=== PATIENT | male | born 1955 | race Caucasian/White ===

== ENCOUNTER 2019-10-22 23:30 | Inpatient (IN) | payer OTHER, MEDICARE, SELFPAY ==
[2019-10-26] VITALS (13 sets, daily range): BP systolic 131–185; BP diastolic 91–119; PULSE 103–135; RESP 15–24; TEMP 36.9–37.2; O2SAT 93–96
[2019-10-26] MEDS: metoprolol tartrate 1 mg/1 mL SDV 5 mL 5 MG IV ×5 (02:22→21:37)
[2019-10-26] MEDS: piperacillin-tazobactam 3.375 GM in sodium chloride 0.9% (plus) 50 ML IV ×4 (04:00→20:35)
[2019-10-26] MEDS: ipratropium 0.5 mg/2.5 mL Neb INHALATION ×2 (04:29→10:49)
[2019-10-26] MEDS: labetalol 5 mg/mL SDV 20mL 10 MG IVP (05:09)
[2019-10-26 05:15] LABS: Add RBC Morph No
[2019-10-26 05:20] LABS: Eosinophils # 0.1 10^3/uL (0.0-0.8); Eosinophils % 1.6 %; Hemoglobin 9.8 g/dL (11.7-16.6); Lymphocytes # 0.5 10^3/uL (0.8-4.8); Lymphocytes % 6.5 %; Mean Corpuscular HGB Conc 32.7 g/dL (30.0-36.0); Mean Corpuscular Volume 91.7 fL (80-94); Mean Platelet Volume 9.8 fL (7.4-10.4); Monocytes # 0.4 10^3/uL (0.2-0.9); Monocytes % 5.4 %; Neutrophils # 7.1 10^3/uL (1.8-7.7); Nucleated Red Blood Cells % 0 %; Platelet Count 132 10^3/cmm (130-400); Red Blood Count 3.27 10^6/uL (4.1-5.3); Red Cell Distribution Width 16.2 % (12.1-15.1); White Blood Count 8.2 10^3/uL (4.0-10.0)
[2019-10-26] MEDS: fentaNYL 50 mcg/mL INJ 2mL 25 MCG IVP ×3 (05:21→18:08)
[2019-10-26 05:40] LABS: Anion Gap 14.3 (5-19); Blood Urea Nitrogen 27 mg/dL (8-23); Calcium 9.6 mg/Dl (8.8-10.2); Carbon Dioxide 22 mmol/L (22-29); Chloride 108 mmol/L (98-107); Glucose 138 mg/dL (74-106); Potassium 3.3 mmol/L (3.5-5.1); Sodium 141 mmol/L (136-145)
[2019-10-26] MEDS: albumin 12.5 GM/50 ML VIAL 2 GM IV (06:01)
--- NOTE | 2019-10-26 08:30 | P.PN_ITS ---
Subjective Subjective: Interval history: Patient overall feels well, no acute events overnight Yet patient did have persistent high blood pressure associated with tachycardia, was given as needed labetalol and metoprolol Vitals/I&O/Wt Last Vital Signs Pulse 110 H 10/26/19 04:34 Resp 15 10/26/19 04:30 Pulse Ox 95 10/26/19 04:30 10/25/19 10/26/19 10/26/19 22:59 06:59 14:59 Intake Total 1186 / 1186 Output Total 600 / 600 Balance 1186 / 1186 -600 / -600 Weight last 48 hrs Weight 109.343 kg Physical Exam Const: COMMON NORMALS: no apparent distress, oriented x3 and alert Resp: COMMON NORMALS: clear to auscultation bilaterally AUSCULTATION: clear to auscultation bilaterally, no rales and no rhonchi Cardio: COMMON NORMALS: S1 normal heart sound and S2 normal heart sound HEART SOUNDS: S1 normal and S2 normal GI: COMMON NORMALS: soft to palpation; negative for non-tender PALPATION: Yes soft, No guarding, No rigid and No hernia PERCUSSION: other (Noticed some discharge from the upper part of the incision, skin charis were removed fascia was intact and packing was done by me bedside) Neuro: COMMON NORMALS: oriented x3 SENSORIUM/ORIENTATION: Yes alert Data Labs: Other Labs: All Labs last 24 hrs except CBC/BMP 10/25/19 10/25/19 10/25/19 01:25 01:25 01:25 RBC 3.14 L MCV 92.4 MCH 30.3 MCHC 32.8 RDW 16.3 H MPV 9.0 Neut % (Auto) 86.1 Lymph % (Auto) 7.9 [place] % (Auto) 4.7 Eos % (Auto) 0.8 Baso % (Auto) 0.0 Neut # (Auto) 7.5 Lymph # (Auto) 0.7 L [place] # (Auto) 0.4 Eos # (Auto) 0.1 Baso # (Auto) 0.0 Nucleated RBC % (a uto) 0 Nucleated RBCs # 0.0 GFR Calculation 40.5 L Random Glucose 108 Calcium 9.1 Total Bilirubin 0.7 AST 21 ALT 24 Alkaline Phosphata se 42 Total Protein 5.2 L Albumin 3.7 Globulin 1.5 Random Vancomycin 17.5 L 1210/26/19 10/26/19 16:50 04:42 04:42 RBC 3.27 L MCV 91.7 MCH 30.0 MCHC 32.7 RDW 16.2 H MPV 9.8 Neut % (Auto) 86.0 Lymph % (Auto) 6.5 [place] % (Auto) 5.4 Eos % (Auto) 1.6 Baso % (Auto) 0.0 Neut # (Auto) 7.1 Lymph # (Auto) 0.5 L [place] # (Auto) 0.4 Eos # (Auto) 0.1 Baso # (Auto) 0.0 Nucleated RBC % (a uto) 0 Nucleated RBCs # 0.0 GFR Calculation 55.2 L 67.0 L Random Glucose 110 Calcium 9.6 9.6 Total Bilirubin 0.6 AST 21 ALT 25 Alkaline Phosphata se 49 Total Protein 6.3 L D Albumin 4.3 Globulin 2.0 Random Vancomycin A&P Assessment and plan (1) Perforated gastric ulcer: This is a 64 years old gentleman status post repair of perforated gastric ulcer postoperative day 4 Patient developed superficial surgical site infection Plan: PLAN OF CARE: CVS: Continue continuous cardiac monitoring, tachycardia and hypertension requires medical management will defer to hospitalist service Anemia stable H&H PULMONARY: Continue weaning from oxygen Continue Aggressive pulmonary toilet Continue Incentive spirometer every hour Lasix IV when necessary GI: At this point will plan to perform an upper GI study tomorrow at the radiology suite if that is clear we will start the patient slowly on clear liquid diet NUTRITION: Continue TPN RENAL: Continue monitoring kidney functions Strict I's and O's Continue electrolyte protocols for replacement including calcium potassium and magnesium INFECTIOUS DISEASE: We will coordinate with hospital service with regard antimicrobial NEUROLOGY: No evidence of neurological deficit GCS 15 out of 15 MOBILITY: physical therapy SKIN AND WOUND: Twice daily wet to dry dressing change for abdominal incision Pain control; parenteral analgesia We will continue coordinating with hospitalist service Assurance and education Continue encouragement Medical necessity care is expected to cross 2 midnights Status: Acute Code(s): K25.5 - Chronic or unspecified gastric ulcer with perforation (2) Surgical site infection: Swabs for aerobes and anaerobes from the wound Twice daily wet-to-dry packing for dressing change followed by ABD Status: Acute Code(s): T81.49XA - Infection following a procedure, other surgical site, initial encounter Attestations Medical Necessity Statement*: Medical necessity care is expected to cross 2 midnights Critical Care Time: Critical care time: less than 30 mins Coding Level of Care Code Acute 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
--- NOTE | 2019-10-26 09:49 | PC.NURSE ---
unable to enter multiple other titrated drugs the other medication that were infusing were ns at 30ml/hr and tpn at 30ml/hr. intake has been document on intake and output for other intake
[2019-10-26] MEDS: hyDRALAzine 20 mg/mL INJ 1 mL 5 MG IVP ×2 (09:59→15:50)
[2019-10-26] MEDS: potassium chloride premix 40 MEQ/100 ML PREMIX 25 MEQ IV (10:00)
[2019-10-26] MEDS: budesonide 0.5 mg/2 mL Neb INHALATION ×2 (10:53→20:29)
--- NOTE | 2019-10-26 11:03 | PC.OT ---
patient on hold this date due to awaiting IVC filter due to bilateral DVT's.
--- NOTE | 2019-10-26 11:21 | P.PN_ITS ---
Subjective Subjective: Interval history: Patient's pain is better controlled today however somewhat worsened with dressing change this morning. However he does report with switch from morphine to Dilaudid he seems to be in better control of the pain. His heart rate overnight was up to 180s and his blood pressure systolic was also in the 180s for which she received one-time dose of labetalol. He did have 1 run of what appears to be A. fib on telemetry yesterday afternoon but has since remained in sinus rhythm. Today we will put him on standing metoprolol 5 mg every 6 hours and also start hydralazine for better blood pressure control until he is able to resume a p.o. intake. His abdominal wound was opened this morning at bedside there was noted to be some slimy discharge but no nacho pus. Renal function is improving this morning. Creatinine is now at 1. He diuresed well with Lasix yesterday. Lower extremity Dopplers were also performed which showed that there is no DVT anymore. A VQ scan was negative for PE. He underwent an abdominal flatplate yesterday to look for gastric distention and this evidently showed that patient already has an IVC filter in place. On asking patient specifically he says he was under the impression that this had been removed previously. Hemoglobin is stable this morning Medications: Reviewed: Yes Vitals/I&O/Wt Last Vital Signs Pulse 113 H 10/26/19 10:58 Resp 20 H 10/26/19 10:56 Pulse Ox 95 10/26/19 10:56 10/25/19 10/26/19 10/26/19 22:59 06:59 14:59 Intake Total 1336 / 1336 250 / 250 Output Total 600 / 600 Balance 1336 / 1336 -350 / -350 Weight last 48 hrs Weight 109.343 kg Physical Exam Const: COMMON NORMALS: no apparent distress and oriented x3 Resp: COMMON NORMALS: normal respiratory effort, no retractions and no use of accessory muscles EFFORT & INSPECTION: Yes able to speak in complete sentences GI: OTHER: distended, surgical dressing in place over abdomen. NOt opened by me for exam today as just re dressed by Dr. Mckinney Neuro: COMMON NORMALS: oriented x3, CN's II-XII intact bilaterally, moves all extremities and no focal motor deficits Data Labs: Other Labs: All Labs last 24 hrs except CBC/BMP 10/25/19 10/25/19 10/25/19 01:25 01:25 01:25 RBC 3.14 L MCV 92.4 MCH 30.3 MCHC 32.8 RDW 16.3 H MPV 9.0 Neut % (Auto) 86.1 Lymph % (Auto) 7.9 [place] % (Auto) 4.7 Eos % (Auto) 0.8 Baso % (Auto) 0.0 Neut # (Auto) 7.5 Lymph # (Auto) 0.7 L [place] # (Auto) 0.4 Eos # (Auto) 0.1 Baso # (Auto) 0.0 Nucleated RBC % (a uto) 0 Nucleated RBCs # 0.0 GFR Calculation 40.5 L Random Glucose 108 Calcium 9.1 Total Bilirubin 0.7 AST 21 ALT 24 Alkaline Phosphata se 42 Total Protein 5.2 L Albumin 3.7 Globulin 1.5 Random Vancomycin 17.5 L 10/25/19 10/26/19 10/26/19 16:50 04:42 04:42 RBC 3.27 L MCV 91.7 MCH 30.0 MCHC 32.7 RDW 16.2 H MPV 9.8 Neut % (Auto) 86.0 Lymph % (Auto) 6.5 [place] % (Auto) 5.4 Eos % (Auto) 1.6 Baso % (Auto) 0.0 Neut # (Auto) 7.1 Lymph # (Auto) 0.5 L [place] # (Auto) 0.4 Eos # (Auto) 0.1 Baso # (Auto) 0.0 Nucleated RBC % (a uto) 0 Nucleated RBCs # 0.0 GFR Calculation 55.2 L 67.0 L Random Glucose 110 Calcium 9.6 9.6 Total Bilirubin 0.6 AST 21 ALT 25 Alkaline Phosphata se 49 Total Protein 6.3 L D Albumin 4.3 Globulin 2.0 Random Vancomycin Micro: Micro: 10/22 and 10/23: Blood cx : NGTD A&P Assessment and plan (1) Perforated gastric ulcer: For perforated gastric ulcer patient is currently postop day 4. He is to have an upper GI series tomorrow to ensure there are no leaks. If there are no leaks detected then we will be able to resume his diet. Until the cane weigher with PPN. Flatplate of the abdomen was performed yesterday which did not show any gross gastric distention therefore holding off on NG tube placement. On examining the wound today there appears to be some concern for developing surgical site infection. We will continue Zosyn for now. If cross pus develops we will take wound swabs and send it for culture. Patient continues to be tachycardic likely is a combination of pain and abdominal distention discomfort. We will make the metoprolol 5 mg IV every 6 hours. For his hypertension we will also start hydralazine. MIKEY is currently improving. We will hold off on Lasix today. He diuresed well yesterday and lungs are sounding much clear. Surprisingly DVT was not detected on lower extremity Dopplers yesterday. A VQ scan for PE was also negative. Patient already has an IVC filter in place yesterday as detected on x-rays. Nothing further to be done from this perspective. We will continue DVT prophylaxis with heparin. Continue Dilaudid for pain control Incentive spirometry Wound care per surgical team Bronchitis continue [id number] nebulizations with DuoNeb's and budesonide. Status: Acute Code(s): K25.5 - Chronic or unspecified gastric ulcer with perforation (2) Sinus tachycardia: Status: Acute Code(s): R00.0 - Tachycardia, unspecified (3) Deep vein thrombophlebitis of leg: Status: Acute Code(s): I80.209 - Phlebitis and thrombophlebitis of unspecified deep vessels of unspecified lower extremity (4) Hypertension: Status: Acute Code(s): I10 - Essential (primary) hypertension (5) Hypokalemia: Status: Acute Code(s): E87.6 - Hypokalemia (6) Anemia: Status: Acute Code(s): D64.9 - Anemia, unspecified Attestations Medical Necessity Statement*: Admitted for management of postop care from a perforated gastric ulcer. Coding Level of Care Code Acute Director Of Quality for [facility] Diagnoses Perforated gastric ulcer K25.5 Sinus tachycardia R00.0 Deep vein thrombophlebitis of leg I80.209 Hypertension I10 Hypokalemia E87.6 Anemia D64.9
--- NOTE | 2019-10-26 14:27 | PC.CHAP ---
Pastoral Care Encounter/Spiritual Assessment Type of Contact [] Declined city engineer visit [] Patient/Family/Request visit [] Outpatient visit [] Follow-up visit [] Physician referral [] Code/Alert [x] Routine visit [] Staff referral [] Actively dying [] Patient sleeping [] Family support [] [] Out of room [] Palliative care [] [] Receiving care in room [] Pre-surgical visit [] Trauma [] Long length of stay [x] ICU visit [] Other: Relational/Emotional Strength [] Patient feels connected with others/family/visitors/staff [x] Distress [] Loneliness/isolation [] Abandonment Spirituality of Patient [x] Person of Wendy [] Attends Christianity of their Wendy [x] Believes in Prayer [] Reads Bible or Spiritism materials [] There are Spiritual issues to be addressed Radio Maintainer Interventions [x] Prayer [x] Active listening [] Non-anxious presence [x] Spiritual/emotional support [] Crisis/trauma care [] Spiritual counseling [] Bereavement support [] Provided bereavement packet [] Provided Bible/devotional materials [] Provided toy/stuffed animal, coloring book to patient or family member [] Completed spiritual assessment [] Provided Communion [] Anointing/[place] [] Salvation [] Other: Impact on Illness or Injury [] Angry [] Fearful [x] Anxious [] Often cries [] Exhaustion [] Unable to work [x] Unable to attend jewish [] Unable to walk/stand [] Unable to read [x] Unable to drive [x] Unable to eat/drink [] Unable to sleep [] Unable to be with family [] Other: Summary Setting up responseive active watahing TV Time spent with patient 110 mins
[2019-10-26] MEDS: heparin 5,000 unit/mL INJ 1 mL 5000 UNIT SUBCUT (15:28)
[2019-10-26] MEDS: albumin 12.5 GM/50 ML VIAL IV ×2 (15:29→21:56)
[2019-10-26] MEDS: fixodent 39 gm Tube 1 APPLIC DENTAL (17:30)
[2019-10-26] MEDS: HYDROmorphone 1 mg/mL INJ 1 mL 1.672 MG IVP (20:36)
[2019-10-26] MEDS: hyDRALAzine 20 mg/mL INJ 1 mL 10 MG IVP (22:50)
[2019-10-27] VITALS (26 sets, daily range): BP systolic 130–169; BP diastolic 76–114; PULSE 64–135; RESP 14–29; TEMP 36.7–37.2; O2SAT 92–97; BMI 38.2
[2019-10-27] MEDS: ipratropium 0.5 mg/2.5 mL Neb INHALATION ×4 (00:38→14:53)
[2019-10-27] MEDS: heparin 5,000 unit/mL INJ 1 mL 5000 UNIT SUBCUT ×2 (01:24→12:48)
[2019-10-27] MEDS: hyDRALAzine 20 mg/mL INJ 1 mL 10 MG IVP ×6 (01:50→22:18)
[2019-10-27] MEDS: metoprolol tartrate 1 mg/1 mL SDV 5 mL 5 MG IV ×5 (02:59→20:43)
[2019-10-27] MEDS: piperacillin-tazobactam 3.375 GM in sodium chloride 0.9% (plus) 50 ML IV ×3 (03:02→20:46)
[2019-10-27 04:12] LABS: Hematocrit 30.5 % (42.0-52.0); Hemoglobin 9.5 g/dL (11.7-16.6); Mean Corpuscular HGB Conc 31.1 g/dL (30.0-36.0); Mean Corpuscular Hemoglobin 30.5 pg (28.0-34.0); Mean Corpuscular Volume 98.1 fL (80-94); Mean Platelet Volume 9.8 fL (7.4-10.4); Platelet Count 131 10^3/cmm (130-400); Red Blood Count 3.11 10^6/uL (4.1-5.3); Red Cell Distribution Width 16.1 % (12.1-15.1); White Blood Count 6.3 10^3/uL (4.0-10.0)
[2019-10-27 05:12] LABS: Alanine Aminotransferase 17 U/L (0-41); Albumin Level 3.7 g/dL (3.5-5.2); Alkaline Phosphatase 40 IU/L (40-130); Anion Gap 13.4 (5-19); Aspartate Amino Transferase 16 U/L (0-40); Blood Urea Nitrogen 20 mg/dL (8-23); Carbon Dioxide 21 mmol/L (22-29); Chloride 104 mmol/L (98-107); Globulin 1.7 g/dL (1.3-4.6); Glomerular Filtration Rate 112.8 mL/min (90-130); Glucose 145 mg/dL (74-106); Potassium 3.4 mmol/L (3.5-5.1); Sodium 135 mmol/L (136-145); Total Bilirubin 0.5 mg/dL (0.15-1.2); Total Protein 5.4 g/dL (6.6-8.7)
[2019-10-27 05:23] LABS: Total Cells Counted 100 (0-100)
[2019-10-27 05:26] LABS: Absolute Eosinophils 0.1 10^3/cmm (0.0-0.7); Absolute Segmented Neutrophil 4.9 10/cmm (1.6-7.1); Band Neutrophils Absolute 0.4 10^3/cmm (0.0-1.2); Eosinophils 2 %; Lymphocytes 12 %; Monocytes Absolute 0.1 10^3/cmm (0.1-0.6); Segmented Neutrophils 79 %
[2019-10-27 05:27] LABS: Platelet Estimate Decreased (Normal)
[2019-10-27] MEDS: albumin 12.5 GM/50 ML VIAL IV ×2 (06:02→14:48)
[2019-10-27] MEDS: HYDROmorphone 1 mg/mL INJ 1 mL 1.672 MG IVP ×3 (06:39→20:43)
--- NOTE | 2019-10-27 07:10 | P.PN_ITS ---
Subjective Subjective: Interval history: Patient overall doing well No acute events overnight BP is better controlled Soaking of the dressing requiring frequent dressing chnages emilieley due to third spacing Vitals/I&O/Wt Last Vital Signs Temp 98.3 F 10/27/19 06:00 Pulse 127 H 10/27/19 06:00 Resp 27 H 10/27/19 06:39 BP 157/93 10/27/19 06:00 Pulse Ox 95 10/27/19 06:39 10/26/19 10/27/19 10/27/19 22:59 06:59 14:59 Intake Total 1148 / 1498 246 / 1744 Output Total 500 / 1100 490 / 1590 Balance 648 / 398 -244 / 154 Weight last 48 hrs Weight 230 lb Weight 241 lb 0.96 oz Physical Exam Const: COMMON NORMALS: no apparent distress EXAM LIMITATIONS: no altered mental status Eye: COMMON NORMALS: no scleral icterus Resp: COMMON NORMALS: clear to auscultation bilaterally AUSCULTATION: clear to auscultation bilaterally GI: COMMON NORMALS: soft to palpation AUSCULTATION: Yes other (WOUND LOOKS BETTER TODAY,RESIDUAL NECROTIC TISSUES ) PALPATION: Yes soft, No tender (EXCEPT AT TH EMID LINE INCISION SITE ), No guarding, No rigid and No rebound tenderness present Data Other Data: Attestation for Other Data: I personally reviewed and interpreted the following: (The upper GI study) A&P Assessment and plan (1) Perforated gastric ulcer: This is a 64 years old gentleman status post repair of perforated gastric ulcer postoperative day 4 Patient developed superficial surgical site infection Plan: PLAN OF CARE: CVS: Continue continuous cardiac monitoring, tachycardia and hypertension requires medical management will defer to hospitalist service,better controlled at present Anemia stable H&H PULMONARY: Continue weaning from oxygen Continue Aggressive pulmonary toilet Continue Incentive spirometer every hour Lasix IV when necessary GI: At this point will plan to perform an upper GI study today at the radiology suite if that is clear we will start the patient slowly on clear liquid diet with aspiration precautions NUTRITION: Continue TPN RENAL: Continue monitoring kidney functions Strict I's and O's Continue electrolyte protocols for replacement including calcium potassium and magnesium Zee catheter was removed yesterday, urine output is marginal, will make sure that the patient's bladder is being scanned frequently for potential residual. INFECTIOUS DISEASE: We will coordinate with hospital service with regard antimicrobial therapy NEUROLOGY: No evidence of neurological deficit GCS 15 out of 15 MOBILITY:continue physical therapy SKIN AND WOUND: Twice daily dry to dry dressing change for abdominal incision or as needed,will plan to apply wound vac at some point when needed. Pain control; parenteral analgesia We will continue coordinating with hospitalist service Assurance and education Continue encouragement Medical necessity care is expected to cross 2 midnights Status: Acute Code(s): K25.5 - Chronic or unspecified gastric ulcer with perforation (2) Surgical site infection: Swabs for aerobes and anaerobes from the wound sent yesterday will follow on it Twice daily wet-to-dry packing for dressing change followed by ABD or as needed Status: Acute Code(s): T81.49XA - Infection following a procedure, other surgical site, initial encounter Attestations Medical Necessity Statement*: Medical necessity care is expected to cross 2 midnights Time Spent in Patient Care: 16 - 35 minutes Coding Level of Care Code Acute Professional 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
[2019-10-27] MEDS: budesonide 0.5 mg/2 mL Neb INHALATION ×2 (07:35→20:37)
--- NOTE | 2019-10-27 08:00 | FL_ITS ---
WS: [id number] UPPER GI TECHNICAL: Single contrast Gastrografin FLUOROSCOPY TIME: 2.5 minutes CLINICAL INFORMATION: Is postoperative day 5 status post repair of perforated gastric ulcer to rule o ut leak COMPARISON: None. FINDINGS: Exam was performed in the semiupright position. No evidence of gastric leak. Contrast is seen to fill the stomach and extends to the proximal duodenum. FL/FL upper GI gastrografin [id number] IMPRESSION: No evidence of gastric leak post gastric ulcer repair
--- NOTE | 2019-10-27 08:27 | PM.PN ---
Subjective Subjective: Interval history: BP between 145-160 systolic overnight. Continues to be tachycardic, sinus rhythm between 98-127. PAin+. Frequent soaking of dressing noted on surgical exam. Hb stable at 9.5. No leukocytosis. K at 3.4. MIKEY resolved with cr now at 0.7. LFT WNL. H. pylori IgG AB: negative. Blood cx remains negative to date. Planned for UGI study this morning. Passing flatus. States he feels improved. Urine output 975ml, drain output 15ml Medications: Reviewed: Yes Vitals/I&O/Wt Last Vital Signs Temp 98.3 F 10/27/19 06:00 Pulse 119 H 10/27/19 07:38 Resp 18 10/27/19 08:00 BP 157/93 10/27/19 06:00 Pulse Ox 95 10/27/19 08:00 10/26/19 10/27/19 10/27/19 22:59 06:59 14:59 Intake Total 1148 / 1498 246 / 1744 Output Total 500 / 1100 490 / 1590 Balance 648 / 398 -244 / 154 Weight last 48 hrs Weight 104.326 kg Weight 109.343 kg Physical Exam Const: COMMON NORMALS: no apparent distress, oriented x3 and alert Resp: COMMON NORMALS: normal respiratory effort, no retractions and no use of accessory muscles OTHER: mild B/L rales, improved on exam Cardio: COMMON NORMALS: regular rate (tachycardia), regular rhythm, S1 normal heart sound, S2 normal heart sound, no gallops, no murmurs, no rub and peripheral pulses 2+ throughout RATE: regular rate (tachycardia) RHYTHM: regular rhythm HEART SOUNDS: S1 normal and S2 normal PERIPHERAL PULSES: pulses 2+ throughout GI: OTHER: Surgical dressing over abdoman with surgical wound underneath, not opened for exam by me as just dressed this morning. No gross pus like discharge on dressing. Abdominal wall edema+. Neuro: COMMON NORMALS: oriented x3 SENSORIUM/ORIENTATION: Yes alert Psych: COMMON NORMALS: mental status grossly normal and affect normal A&P Assessment and plan (1) Perforated gastric ulcer: For perforated gastric ulcer patient is currently postop day 5. He is to have an upper GI series today to ensure there are no leaks. If there are no leaks detected then we will be able to resume his diet. Until then nutrition is with PPN. On examining the wound today there appears to be some concern for developing surgical site infection. Concern for early surgical site infection. Continue Zosyn. Given no leukocytosis or fever, will hold off on adding vancomycin until wound swab cx results. Patient continues to be tachycardic likely is a combination of pain and abdominal distention discomfort. We will increase the metoprolol 5 mg IV every 4 hours. hypertension better controlled with addition of hydrazlazine. MIKEY is resolved. We will hold off on Lasix today. Surprisingly DVT was not detected on repeat lower extremity Dopplers. A VQ scan for PE was also negative. Patient already has an IVC filter in place yesterday as detected on x-rays. Nothing further to be done from this perspective. We will continue DVT prophylaxis with heparin. Continue Dilaudid for pain control Incentive spirometry Wound care per surgical team Bronchitis continue [id number]-[id number] nebulizations with DuoNeb's and budesonide. 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
--- NOTE | 2019-10-27 08:49 | ECG_ITS ---
Measurements Intervals [place] Rate: 129 P: 9 TN: 149 QRS: -1 QRSD: 90 T: 33 QT: 313 QTc: 459 SINUS TACHYCARDIA WITH FREQUENT ECTOPIC PREMATURE COMPLEXES Compared to ECG 10/23/2019 02:54:28 Sinus rhythm no longer present Electronically Signed On 10-27-2019 17:09:17 [employer] by Charlene Vieyra M.D. [email or web address]
[2019-10-27] MEDS: potassium chloride premix 40 MEQ/100 ML PREMIX 25 MEQ IV (09:56)
[2019-10-27] MEDS: diatrizoate meglumine 120 mL Sol PO (11:09)
--- NOTE | 2019-10-27 12:24 | PC.NURSE ---
Ashley in case management notified about the need for Rehab upon discharge. Will discuss with patient this evening.
--- NOTE | 2019-10-27 12:30 | PC.NURSE ---
Dr. Holland at bedside. Changed dressing at this time. Serosanguinous fluid noted at this time.
--- NOTE | 2019-10-27 15:47 | PC.CHAP ---
Pastoral Care Encounter/Spiritual Assessment Type of Contact [] Declined wait staff visit [] Patient/Family/Request visit [] Outpatient visit [] Follow-up visit [] Physician referral [] Code/Alert [x] Routine visit [] Staff referral [] Actively dying [] Patient sleeping [] Family support [] [] Out of room [] Palliative care [] [] Receiving care in room [] Pre-surgical visit [] Trauma [] Long length of stay [x] ICU visit [] Other: Relational/Emotional Strength [x] Patient feels connected with others/family/visitors/staff [] Distress [] Loneliness/isolation [x] Abandonment Spirituality of Patient [x] Person of Wendy [] Attends Rastafarian of their Wendy [x] Believes in Prayer [] Reads Bible or Zoroastrian materials [] There are Spiritual issues to be addressed Perianesthesia Nurse Interventions [x] Prayer [x] Active listening [x] Non-anxious presence [x] Spiritual/emotional support [] Crisis/trauma care [] Spiritual counseling [] Bereavement support [] Provided bereavement packet [] Provided Bible/devotional materials [] Provided toy/stuffed animal, coloring book to patient or family member [x] Completed spiritual assessment [] Provided Communion [] Anointing/[place] [] Salvation [] Other: Impact on Illness or Injury [] Angry [x] Fearful [] Anxious [] Often cries [] Exhaustion [x] Unable to work [] Unable to attend episcopalian [] Unable to walk/stand [] Unable to read [] Unable to drive [] Unable to eat/drink [] Unable to sleep [] Unable to be with family [] Other: Summary Feels good, communicaive talks and understands what is going on,, Perianesthesia Nurse Dr Ladarius Cardenas Time spent with patient 10 mins
--- NOTE | 2019-10-27 16:24 | PC.NURSE ---
Dressing on abdomen noted to have moderate drainage. Changed dressing at this time. Dry to dry dressing per Dr. Crystal.
--- NOTE | 2019-10-27 17:16 | PC.SOCIAL ---
Pg 2 of IM updated and reviewed with pt. Copy Provided.
--- NOTE | 2019-10-27 18:28 | PC.NURSE ---
Dressing noted to have moderate amount of drainage on ABD pad. Dressing was changed at this time. Patient tolerated well.
[2019-10-27] MEDS: albumin 12.5 GM/50 ML VIAL 2 GM IV (21:00)
[2019-10-28] VITALS (40 sets, daily range): BP systolic 95–187; BP diastolic 56–127; PULSE 91–128; RESP 16–241; TEMP 36.5–37.1; O2SAT 89–100
--- NOTE | 2019-10-28 | USCV_ITS ---
ZaynabWaylon perdomo Age: 64 Gender: M : 1955 Exam Date: 10/28/2019 09:17 Ordering Phys: Dyana Salomon MD Technologist: Margaret Lopez [place] [facility] [place]: POSSIBLE DVT HISTORY: PERFORATED BOWEL/SURGERY PROCEDURES: Comparison:. 10/25/19. Venous duplex imaging was performed in bilateral lower extremities. The following venous structures were evaluated: common femoral vein, profunda vein, proximal portion of the greater saphenous vein,l femoral vein, and the popliteal vein. In addition, the posterior tibial and peroneal trunk were evaluated. FINDINGS: Age indeterminate thrombus in the right cfv, profunda, and femoral vein. Not seen on recent DVT study therefore likley acute. There appeared to be partial thrombu is lt cfv, and occluding thrombus in proximal and mid femoral vein on the left. All other veins appeared patent. CONCLUSIONS Bilateral DVT, likely acute as not seen on prior studies, Dr. Mee Dinh DO (Electronically Signed) Final Date: 28 October 2019 13:15 S
[2019-10-28] MEDS: heparin 5,000 unit/mL INJ 1 mL 5000 UNIT SUBCUT ×2 (00:33→12:46)
[2019-10-28] MEDS: metoprolol tartrate 1 mg/1 mL SDV 5 mL 5 MG IV ×2 (00:33→04:37)
--- NOTE | 2019-10-28 01:22 | PC.NURSE ---
DR MCCARTNEY PT BLOOD PRESSURE IS STAYING HIGH, LAST PRESSURE 173/110. DR TARIQ CALLED, HE IS PUTTING ORDERS IN FOR ANOTHER BLOOD PRESSURE MED.
[2019-10-28] MEDS: HYDROmorphone 1 mg/mL INJ 1 mL IVP ×4 (01:52→20:36)
[2019-10-28] MEDS: hyDRALAzine 20 mg/mL INJ 1 mL 10 MG IVP ×3 (01:53→21:45)
[2019-10-28] MEDS: nitroglycerin 1 gm/inch oint Pkt 1 INCH TOPICAL (01:53)
[2019-10-28] MEDS: ipratropium 0.5 mg/2.5 mL Neb INHALATION (03:26)
[2019-10-28] MEDS: piperacillin-tazobactam 3.375 GM in sodium chloride 0.9% (plus) 50 ML IV ×2 (04:38→12:41)
[2019-10-28 05:34] LABS: Basophils % 0.1 %; Eosinophils # 0.1 10^3/uL (0.0-0.8); Eosinophils % 1.2 %; Hematocrit 32.7 % (42.0-52.0); Hemoglobin 10.5 g/dL (11.7-16.6); Lymphocytes # 0.7 10^3/uL (0.8-4.8); Lymphocytes % 8.5 %; Mean Corpuscular HGB Conc 32.1 g/dL (30.0-36.0); Mean Corpuscular Hemoglobin 29.9 pg (28.0-34.0); Mean Corpuscular Volume 93.2 fL (80-94); Mean Platelet Volume 10.8 fL (7.4-10.4); Monocytes # 0.6 10^3/uL (0.2-0.9); Monocytes % 7.7 %; Neutrophils # 6.4 10^3/uL (1.8-7.7); Neutrophils % 81.9 %; Nucleated Red Blood Cells % 0 %; Platelet Count 150 10^3/cmm (130-400); Red Blood Count 3.51 10^6/uL (4.1-5.3); Red Cell Distribution Width 15.9 % (12.1-15.1); White Blood Count 7.8 10^3/uL (4.0-10.0)
[2019-10-28 05:49] LABS: Alanine Aminotransferase 18 U/L (0-41); Albumin Level 4.2 g/dL (3.5-5.2); Alkaline Phosphatase 46 IU/L (40-130); Anion Gap 17.1 (5-19); Blood Urea Nitrogen 19 mg/dL (8-23); Calcium 9.3 mg/Dl (8.8-10.2); Carbon Dioxide 22 mmol/L (22-29); Chloride 103 mmol/L (98-107); Globulin 1.9 g/dL (1.3-4.6); Glomerular Filtration Rate 96.7 mL/min (90-130); Glucose 98 mg/dL (74-106); Potassium 4.1 mmol/L (3.5-5.1); Sodium 138 mmol/L (136-145); Total Bilirubin 0.5 mg/dL (0.15-1.2); Total Protein 6.1 g/dL (6.6-8.7)
[2019-10-28 06:21] LABS: Aspartate Amino Transferase 20 U/L (0-40)
[2019-10-28] MEDS: albumin 12.5 GM/50 ML VIAL 2 GM IV ×3 (06:24→22:53)
--- NOTE | 2019-10-28 06:37 | P.PN_ITS ---
Subjective Subjective: Interval history: Patient overall feels better No acute events overnight Continues to have excessive drainage from the upper part of the incision Patient is tolerating well p.o. without evidence of complications Medications: Reviewed: Yes Vitals/I&O/Wt Last Vital Signs Temp 98.5 F 10/28/19 04:50 Pulse 113 H 10/28/19 04:00 Resp 19 H 10/28/19 06:22 BP 157/97 10/28/19 04:00 Pulse Ox 95 10/28/19 06:22 10/27/19 10/27/19 10/28/19 14:59 22:59 06:59 Intake Total 2349.167 / 2349.167 628.333 / 2977.500 509.167 / 3486.667 Output Total 700 / 700 200 / 900 Balance 2349.167 / 2349.167 -71.667 / 2277.500 309.167 / 2586.667 Weight last 48 hrs Weight 225 lb 9.6 oz Weight 230 lb Physical Exam Const: COMMON NORMALS: no apparent distress and oriented x3 EXAM LIMITATIONS: no altered mental status GENERAL APPEARANCE: cooperative ORIENTATION/CONSCIOUSNESS: Yes awake, Yes oriented to person, Yes oriented to place and Yes oriented to time Eye: COMMON NORMALS: PERRL and no scleral icterus PUPIL: Yes PERRL Chest: COMMONS NORMALS: inspection of chest normal Resp: COMMON NORMALS: normal respiratory effort and clear to auscultation bilaterally AUSCULTATION: clear to auscultation bilaterally Cardio: COMMON NORMALS: S1 normal heart sound and S2 normal heart sound; negative for no murmurs HEART SOUNDS: S1 normal and S2 normal GI: COMMON NORMALS: soft to palpation; negative for no hepatosplenomegaly INSPECTION: Yes normal to inspection AUSCULTATION: Yes other (WOUND LOOKS BETTER TODAY,RESIDUAL NECROTIC TISSUES debrided bedside) PALPATION: Yes soft, No firm, No tender, No guarding, No rigid, No no hepatosplenomegaly, No hernia and Yes ascites present PERCUSSION: other Neuro: COMMON NORMALS: oriented x3 SENSORIUM/ORIENTATION: Yes oriented to person, Yes oriented to place and Yes oriented to time Skin: COMMON NORMALS: no wounds and no mottling LESIONS: other (Controlled Fascial Dehiscence is noticed at the upper part without eviscera) Data Micro: Micro: Microbiology 10/26/19 16:00 Gram Stain - Final Abdomen A&P Assessment and plan (1) Perforated gastric ulcer: This is a 64 years old gentleman status post repair of perforated gastric ulcer postoperative patient had surgery 10/22/2019 Patient developed superficial surgical site infection Plan: PLAN OF CARE: CVS: Continue continuous cardiac monitoring, tachycardia and hypertension requires medical management will defer to hospitalist service,better controlled at present Anemia stable H&H PULMONARY: Continue weaning from oxygen Continue Aggressive pulmonary toilet Continue Incentive spirometer every hour Lasix IV when necessary GI: PO intake clears and protein shakes NUTRITION: Wean TPN and start oral protein shakes RENAL: Continue monitoring kidney functions Strict I's and O's Continue electrolyte protocols for replacement including calcium potassium and magnesium INFECTIOUS DISEASE: We will coordinate with hospital service with regard antimicrobial therapy NEUROLOGY: No evidence of neurological deficit GCS 15 out of 15 MOBILITY:continue physical therapy SKIN AND WOUND: Twice daily dry to dry dressing change for abdominal incision or as needed,will plan to apply wound vac at some point when needed Continue drain care serous output. Pain control;will switch to po pain meds liquid form We will continue coordinating with hospitalist service Assurance and education Continue encouragement Medical necessity care is expected to cross 2 midnights Status: Acute Code(s): K25.5 - Chronic or unspecified gastric ulcer with perforation (2) Surgical site infection: Swabs for aerobes and anaerobes from the wound sent yesterday will follow on it Twice daily dry-to-dry packing for dressing change followed by ABD or as needed NO PLACEMENT OF GAUZE ON TOP OF THE PACKING IT WILL MACERATE THE SKIN Status: Acute Code(s): T81.49XA - Infection following a procedure, other surgical site, initial encounter Attestations Medical Necessity Statement*: Hospital stay will exceed two midnights Time Spent in Patient Care: 16 - 35 minutes Other Attestations: And will benefit highly from acute rehab Coding Level of Care Code Acute Financial Reporting Manager for Vinita Fwleighann Exam Problem Focused Diagnoses Perforated gastric ulcer K25.5 Surgical site infection T81.49XA
--- NOTE | 2019-10-28 07:00 | PC.NURSE ---
SHIFT SUMMARY PT HAS BEEN ALERT AND ORIENTATED. DR MENDEZ ROUNDED AND CHANGED DRESSING. GAVE ORDER FOR GLUCERNA. PT HAS HAD ADEQUATE URINE OUTPUT. PT HAS HAD HIGH BLOOD PRESSURE AND BEEN TACHYCARDIAC, DRS AWARE. GIVEN MEDS AVAILABLE. PT GETS UP STAND BY ASSIST TO CHAIR. PT GIVEN PAIN MEDS NEEDED. PT HAS BEEN ON ROOM AIR. NO VOMIT NOTED, PT HAD ONE EPISODE OF NAUSEA AFTER DR CHANGED DRESSING. PT HAS BEEN AFEBRILE.
[2019-10-28] MEDS: budesonide 0.5 mg/2 mL Neb INHALATION ×2 (07:46→20:54)
[2019-10-28] MEDS: lisinopril 20 mg Tablet PO ×2 (08:32→21:44)
[2019-10-28] MEDS: metoprolol succinate ER (24 HR) 50 mg Tablet PO (08:32)
[2019-10-28] MEDS: FUROsemide 10 mg/mL SDV 2mL 20 MG IVP (09:25)
--- NOTE | 2019-10-28 14:09 | PC.OT ---
PATIENT HAS DECLINED OT TREATMENT X3 TODAY DUE TO NAUSEA.
--- NOTE | 2019-10-28 14:27 | PC.CHAP ---
Pastoral Care Encounter/Spiritual Assessment Type of Contact [] Declined employee communications coordinator visit [] Patient/Family/Request visit [] Outpatient visit [x] Follow-up visit [] Physician referral [] Code/Alert [] Routine visit [] Staff referral [] Actively dying [x] Patient sleeping [] Family support [] [] Out of room [] Palliative care [] [] Receiving care in room [] Pre-surgical visit [] Trauma [x] Long length of stay [x] ICU visit [] Other: Relational/Emotional Strength [] Patient feels connected with others/family/visitors/staff [] Distress [] Loneliness/isolation [] Abandonment Spirituality of Patient [] Person of Wendy [] Attends Quaker of their Wendy [] Believes in Prayer [] Reads Bible or Episcopalian materials [] There are Spiritual issues to be addressed Consulting Sales Manager Interventions [] Prayer [] Active listening [] Non-anxious presence [] Spiritual/emotional support [] Crisis/trauma care [] Spiritual counseling [] Bereavement support [] Provided bereavement packet [] Provided Bible/devotional materials [] Provided toy/stuffed animal, coloring book to patient or family member [] Completed spiritual assessment [] Provided Communion [] Anointing/[place] [] Salvation [] Other: Impact on Illness or Injury [] Angry [] Fearful [] Anxious [] Often cries [] Exhaustion [] Unable to work [] Unable to attend rastafari [] Unable to walk/stand [] Unable to read [] Unable to drive [] Unable to eat/drink [] Unable to sleep [] Unable to be with family [] Other: Summary Patient was asleep at the time I attempted to visit. Made a note to follow up. Visit attempted by employee communications coordinatorjulio Gu Time spent with patient 2 minutes
[2019-10-28] MEDS: AA-Dex 5%-20% w/Lytes 1,000 ML 50 ML IV (16:36)
--- NOTE | 2019-10-28 17:36 | ANES.PREANES ---
Pre-Anesthetic Assessment Pre-Anesthetic Assessment: Height/Weight: Height 1.65 m Weight 102.33 kg Temp Pulse Resp BP Pulse Ox 98.5 F 106 H 241 H 152/99 91 10/28/19 04:50 10/28/19 15:53 10/28/19 16:25 10/28/19 06:00 10/28/19 16:25 Proposed Procedure: Operation Date: 10/28/19 17:50 Proposed Procedures p Wound Vac Placement(Not Applicable) - Perry Carroll MD s Incision And Drainage(Not Applicable) - Perry Carroll MD Social: Social History: No alcohol and No tobacco Exam: Pre-Anes Outpt Exam: alert, oriented x 3, clear to auscultation bilaterally and regular rate & rhythm (tachy) Airway: Submandibular: WNL Cervical ROM: WNL MP: 2 Dentition: False History/ROS: No significant history except as noted Pulmonary: Pulmonary: Asthma CV/HEM: CV/HEM: Arrythmia and HTN Anesthetic Plan: ASA status: E Anesthesia: Anesthesia Evaluation and General Risk of > 500 ml blood loss (7ml/kg in children): No Meds/Allergies Current Medications: Current Medications Generic Name Dose Route Start Last Admin Trade Name Freq PRN Reason Stop Dose Admin Albuterol Sulfate 2.5 mg 10/26/19 03:00 10/28/19 15:48 Albuterol INHALATION 2.5 mg Q4H.RESPIRATORY S CH Administration Budesonide 0.5 mg 10/26/19 08:00 10/28/19 07:46 Pulmicort INHALATION 0.5 mg BID.RESPIRATORY S CH Administration Denture Adhesive 1 applic 10/26/19 01:51 10/26/19 17:30 Fixodent DENTAL 1 cream PRN PRN Administration denture adhesive Fentanyl 25 mcg 10/26/19 00:00 10/26/19 18:08 Sublimaze IVP 25 mcg Q4H PRN Administration SEVERE PAIN Heparin Sodium (Be ef Lung) 5,000 unit 10/26/19 13:00 10/28/19 12:46 Heparin SUBCUT 5,000 unit Q12H LINDA Administration Hydromorphone HCl 1 mg 10/27/19 21:03 10/28/19 16:25 Dilaudid Inj IVP 1 mg Q4H PRN Administration SEVERE PAIN Pantoprazole Sodiu m 40 mg/ 100 mls @ 20 mls/ hr 10/26/19 02:00 10/28/19 17:29 Sodium Chloride IV 8 mg/hr .Q5H LINDA 20 mls/hr Administration 8 MG/HR Piperacillin Sod/T azobactam 50 mls @ 12.5 mls /hr 10/26/19 03:30 10/28/19 12:41 Sod 3.375 gm/ So dium Chloride IV 12.5 mls/hr Q8H LINDA Administration Acetaminophen 1,000 mg in 100 m ls @ 400 mls/hr 10/26/19 02:00 10/28/19 09:38 Ofirmev IV Infused Q8H LINDA Infusion Albumin Human 12.5 gm in 50 mls @ 2 mls/min 10/26/19 06:00 10/28/19 14:05 Albumin IV 2 mls/min Q8H LINDA Administration Sodium Chloride 1,000 mls @ 30 ml s/hr 10/26/19 00:00 10/28/19 00:33 Sodium Chloride 0.9% IV 30 mls/hr .Q24H LINDA Administration Amino Acids/Electr olytes 1,000 mls @ 50 ml s/hr 10/28/19 10:00 10/28/19 16:36 Clinimix E 5%-20 % IV 50 mls/hr .Q20H LINDA Administration Ipratropium Bromid e 0.5 mg 10/26/19 02:09 10/28/19 03:26 Atrovent Neb INHALATION 0.5 mg PRN PRN Administration SHORTNESS OF SHIVANI TH Lisinopril 20 mg 10/28/19 09:00 10/28/19 08:32 Prinivil PO 20 mg BID LINDA Administration Metoprolol Succina te 50 mg 10/28/19 09:00 10/28/19 08:32 Toprol Xl PO 50 mg DAILY LINDA Administration Non-Formulary Medi cation 1 bottle 10/28/19 10:00 10/28/19 14:05 Glucerna PO Not Given 5XD LINDA PFSH Anesthesia PFSH: Medical History (Updated 10/28/19 @ 17:37 by Siddharth Reagan MD) Asthma (Acute) Deep vein thrombophlebitis of leg (Acute) Hepatitis C (Acute) History of adenocarcinoma of prostate (Acute) Hypertension (Acute) Morbid obesity (Acute) Osteoarthritis (Acute) Perforated gastric ulcer (Acute) Sinus tachycardia (Acute) Surgical site infection (Acute) Surgical History (Updated 10/28/19 @ 17:37 by Siddharth Reagan MD) Hx of total knee arthroplasty (Acute) Social History (Updated 10/25/19 @ 20:03 by Stefania De La Rosa) Smoking and tobacco status: never smoked Alcohol intake: never Substance/Drug Use: never Data Anesthesia Labs: Other Labs: Laboratory Results - last 48 hr 10/27/19 10/27/19 10/28/19 03:40 03:40 04:37 WBC 6.3 7.8 RBC 3.11 L 3.51 L Hgb 9.5 L 10.5 L Hct 30.5 L 32.7 L MCV 98.1 H D 93.2 MCH 30.5 29.9 MCHC 31.1 32.1 RDW 16.1 H 15.9 H Plt Count 131 150 MPV 9.8 10.8 H Neut % (Auto) 81.9 Lymph % (Auto) 8.5 [place] % (Auto) 7.7 Eos % (Auto) 1.2 Baso % (Auto) 0.1 Neut # (Auto) 6.4 Lymph # (Auto) 0.7 L [place] # (Auto) 0.6 Eos # (Auto) 0.1 Baso # (Auto) 0.0 Nucleated RBC % (a uto) 0 Total Counted 100 Segmented Neutroph ils 79 Band Neutrophils 6.0 Lymphocytes (Manua l) 12 Monocytes (Manual) 1.0 Absolute Monocytes 0.1 Eosinophils (Manua l) 2 Absolute Eosinophi ls 0.1 Nucleated RBCs # 0.0 Platelet Estimate Decreased Sodium 135 L Potassium 3.4 L Chloride 104 Carbon Dioxide 21 L Anion Gap 13.4 BUN 20 Creatinine 0.7 GFR Calculation 112.8 Glucose 145 H Calcium 9.0 Total Bilirubin 0.5 AST 16 ALT 17 Alkaline Phosphata se 40 Total Protein 5.4 L Albumin 3.7 Globulin 1.7 10/28/19 04:37 WBC RBC Hgb Hct MCV MCH MCHC RDW Plt Count MPV Neut % (Auto) Lymph % (Auto) [place] % (Auto) Eos % (Auto) Baso % (Auto) Neut # (Auto) Lymph # (Auto) [place] # (Auto) Eos # (Auto) Baso # (Auto) Nucleated RBC % (a uto) Total Counted Segmented Neutroph ils Band Neutrophils Lymphocytes (Manua l) Monocytes (Manual) Absolute Monocytes Eosinophils (Manua l) Absolute Eosinophi ls Nucleated RBCs # Platelet Estimate Sodium 138 Potassium 4.1 Chloride 103 Carbon Dioxide 22 Anion Gap 17.1 BUN 19 Creatinine 0.8 GFR Calculation 96.7 Glucose 98 Calcium 9.3 Total Bilirubin 0.5 AST 20 ALT 18 Alkaline Phosphata se 46 Total Protein 6.1 L Albumin 4.2 Globulin 1.9 Micro: Micro: Microbiology 10/26/19 16:00 Gram Stain - Final Abdomen Wound Culture - Pr eliminary Strep species, gamma-hemolytic Cardiac Studies: No Data to Display
[2019-10-28] MEDS: sodium chloride 0.9% 1,000 ML 30 ML IV (18:50)
[2019-10-28] MEDS: lidocaine 2% INJ 20 mL INJECTION (19:09)
--- NOTE | 2019-10-28 20:31 | PM.OP ---
Operative Report Post-Operative Note: Date of procedure: 10/29/19 Preop Diagnosis: Fascial dehiscence status post laparotomy for repair of perforated gastric ulcer Post-op diagnosis: same Post-op Findings: Fascial dehiscence of the upper third of the fascia yet viable bowel in place covered by omentum. Residual necrotic tissues at the sides of the abdominal wall without evidence of pus Procedure Done: Sharp debridement of abdominal wall wound Closure of the fascia with interrupted [id number] PDS and Vicryl Irrigation of the wound Application of wound VAC Implants: Wound VAC black foam Specimens removed/disposition: none Surgeon: Perry Carroll Environmental Aid: Kourtney White Anesthesia: general (OZZIE Noble/Dr. Reagan) Estimated blood loss (mL): 25 IV fluids (mL): 300 Urine output (mL): 0 Complications: No immediate complications Condition: stable Disposition: ICU Operative Report: Brief History: This is a pleasant 64 years old gentleman morbidly obese with multiple medical comorbidities, presented to the emergency department with perforated gastric ulcer on October 22, 2019 that required urgent surgical intervention for repair of the ulcer, attempted laparoscopic approach yet converted to open due to the extensive intra-abdominal adhesions, patient did well with that regard and an upper GI study was done showed no leak, yet the patient unfortunately developed superficial surgical site infection in addition to the repeated coughing due to his chronic COPD developed fascial dehiscence that required surgical intervention. I did ip counsel the patient for surgery in the form of debridement of the abdominal wound and application of wound VAC and he did agree to proceed Procedure: After identifying the patient in the ICU,patient was then taken to the operative suite,was placed in supine position, IV antibiotics were given per protocol,IV propofol was infused by the anesthesia provider followed by endotracheal intubation, pack was removed by me in the OR then prep and drape of the abdomen was done under the usual sterile technique. Time-out was done verifying the patient's name/date of /planned procedure and destination after the procedure, all were in agreement. Started by excising the unhealthy necrotic indurated tissues of the wound, including retained sutures of PDS, debridement took place all the way to the fascial layer, viable bowel covered by omentum in place. Gentle manipulation of the viscera was done, that was already in place not eviscerated, followed by thorough irrigation using warm saline, followed by that under direct visualization I did apply multiple interrupted PDS and Vicryl sutures to the attenuated fascia particularly attenuation was more evident at the upper part of the fascial dehiscence(unfortunately there is no available biologic mesh to apply at this point in our facility, that would have helped to stabilize the abdominal wall more), yet I was able to close the fascia, followed by that I did put interrupted sutures of nylon at the North and South part of the skin incision, followed by wound VAC application and pressure was placed at intermittent suction 125 mm Hg. Patient tolerated the procedure well, count of instruments, needles and sponges were completed at the end of the procedure.Patient was then extubated and then transferred directly to the ICU. I was present for the whole entire procedure Coding Level of Care Code Acute Associate Professor Of Engineering for Vinita Louise
--- NOTE | 2019-10-28 21:03 | PC.NURSE ---
Arrived from OR at 2024. Pt alert and oriented, arrives on 10L simple mask. RR 28, O2 sat 100%. Abd muscle use at this time with expiratory wheezes throughout. Pt hypertensive on arrival to unit with HR 100. Anesthesia administered 10mg IV Labetolol on arrival to unit for hypertension. Pt reports pain 10/10 medial abdomen. Anesthesia administered 10mg IV Labetolol on arrival to unit for hypertension. 1mg hydromorphone given IVP for c/o pain (see MAR). Abdomen is distended but soft. Midline abdominal surgical incision was closed with sutures with wound vac placed over, wound vac continous therapy at 125 suction and is intact. JAMILA drain remains to right lower abd. Remain at bedside recovering patient.
[2019-10-28] MEDS: fentaNYL 50 mcg/mL INJ 2mL 25 MCG IVP (21:23)
--- NOTE | 2019-10-28 23:50 | PM.PN ---
Subjective Subjective: Interval history: SSeen and examined earlier this am. C/o pain being better controlled. Requesting walker. Wound dehiscnece noted earlier in the day with signs of post op wound infection. During course of the day, this dehiscence worsened and he was taken to the OR in the evening with placement of wound vac. Prelim cx from micro from wound swab with gamma hemolyticus strep and GNR, pending identification Medications: Reviewed: Yes Vitals/I&O/Wt Last Vital Signs Temp 98.2 F 10/28/19 22:15 Pulse 116 H 10/28/19 23:31 Resp 20 H 10/28/19 23:26 BP 143/93 10/28/19 22:15 Pulse Ox 97 10/28/19 23:26 10/28/19 10/28/19 10/29/19 14:59 22:59 06:59 Intake Total 337.333 / 337.333 295.333 / 632.666 Output Total 500 / 500 500 / 1000 15 / 1015 Balance -162.667 / -162.667 -204.667 / -367.334 -15 / -382.334 Weight last 48 hrs Weight 102.33 kg Weight 104.326 kg Physical Exam Narrative: EXAM NARRATIVE: Gen: awake, alert and oriented, No acute distress CVS: S1S2N RS: CTA B/L abdomen: distended, wound dehiscence per surgical exam, no opened by me for exam EXT: B/L LE swelling and TTP Data Micro: Micro: Microbiology 10/26/19 16:00 Gram Stain - Final Abdomen Wound Culture - Pr eliminary Strep species, gamma-hemolytic A&P Assessment and plan (1) Perforated gastric ulcer: For perforated gastric ulcer patient is currently postop day 6. UGI series with no leaks. Started on po meds and clear diet. TPN to conitnue at goal rate of 50 with addition of protein shakes to facilitate healing. Worsening wound dehiscence likely due to mechanical stress from coughing, abdominal fascia weakness from smoking, steroids. Taken to the OR in evening to get wound vac. On empiric zosyn already. vanc added Patient continues to be tachycardic likely is a combination of pain and abdominal distention discomfort. We will increase the metoprolol 5 mg IV every 4 hours. hypertension better controlled with addition of hydrazlazine. MIKEY is resolved. Surprisingly DVT was not detected on repeat lower extremity Dopplers. A VQ scan for PE was also negative. Patient already has an IVC filter in place as detected on x-rays. Will check LE doppler again as exam extremely concerning for DVT. continue DVT prophylaxis with heparin. Continue Dilaudid for pain control Incentive spirometry Wound care per surgical team Bronchitis continue [id number] nebulizations with DuoNeb's and budesonide. Status: Acute Code(s): K25.5 - Chronic or unspecified gastric ulcer with perforation (2) Surgical site infection: gaam ahemolytic strep and GNR pending identification Status: Acute Code(s): T81.49XA - Infection following a procedure, other surgical site, initial encounter (3) Sinus tachycardia: resume po metoprolol Status: Acute Code(s): R00.0 - Tachycardia, unspecified (4) Hypertension: resume po lisinopril Status: Acute Code(s): I10 - Essential (primary) hypertension Attestations Medical Necessity Statement*: management of post op wound dehiscence after perfortaed gastric ulcer repair Coding Level of Care Code Acute American Indian Policy Specialist for Chg Fwd Diagnoses Perforated gastric ulcer K25.5 Surgical site infection T81.49XA Sinus tachycardia R00.0 Hypertension I10
--- NOTE | 2019-10-28 23:53 | PC.NURSE ---
Postoperative Recovery Phase 1: 200ml IVF given in OR. ESBL 25ml. No urine output in OR. Phase 2: Received care from OR on 10/28/49 at 2024 for recovery. Recovery time ended at 2099. O2 concerns: Yes, patient arrived on 10L simple mask with RR 28 labored breathing with expiratory wheezes. Hemodynamic concerns: Yes, hypertensive with tachycardia. Verbal Response concerns: No, pt is awake oriented and follows all commands Extremity concerns: No, able to move all extremities. N/V concerns: No Bleeding concerns: No, minimal output of drains. No bleeding concerns reflected by v/s or assessment. See v/s flowsheet for postoperative vital signs.
[2019-10-29] VITALS (31 sets, daily range): BP systolic 90–142; BP diastolic 61–106; PULSE 106–120; RESP 12–26; TEMP 36.6–36.9; O2SAT 92–98
[2019-10-29] MEDS: HYDROmorphone 1 mg/mL INJ 1 mL 2 MG IVP ×5 (00:31→21:07)
[2019-10-29] MEDS: heparin 5,000 unit/mL INJ 1 mL 5000 UNIT SUBCUT ×2 (00:33→12:26)
[2019-10-29] MEDS: piperacillin-tazobactam 3.375 GM in sodium chloride 0.9% (plus) 50 ML IV ×3 (03:11→19:45)
--- NOTE | 2019-10-29 03:23 | PC.NURSE ---
Bladder scan preformed at this time for patient having frequentl and small amounts of urine. Pt reports he feels like he is not emptying bladder and has this issue sometimes. No bladder distention noted. Bladder scan showed 177ml. Will continue to monitor.
[2019-10-29] MEDS: fentaNYL 50 mcg/mL INJ 2mL 25 MCG IVP ×3 (05:35→14:46)
[2019-10-29 06:34] LABS: Basophils % 0.2 %; Eosinophils # 0.1 10^3/uL (0.0-0.8); Eosinophils % 0.6 %; Hematocrit 31.4 % (42.0-52.0); Lymphocytes # 0.6 10^3/uL (0.8-4.8); Lymphocytes % 5.8 %; Mean Corpuscular HGB Conc 31.8 g/dL (30.0-36.0); Mean Corpuscular Hemoglobin 29.9 pg (28.0-34.0); Mean Corpuscular Volume 93.7 fL (80-94); Mean Platelet Volume 10.1 fL (7.4-10.4); Monocytes # 0.7 10^3/uL (0.2-0.9); Neutrophils # 8.1 10^3/uL (1.8-7.7); Neutrophils % 85.8 %; Nucleated Red Blood Cells % 0 %; Platelet Count 158 10^3/cmm (130-400); Red Blood Count 3.35 10^6/uL (4.1-5.3); Red Cell Distribution Width 15.7 % (12.1-15.1); White Blood Count 9.5 10^3/uL (4.0-10.0)
[2019-10-29 06:55] LABS: Alanine Aminotransferase 12 U/L (0-41); Albumin Level 4.2 g/dL (3.5-5.2); Alkaline Phosphatase 40 IU/L (40-130); Anion Gap 14.6 (5-19); Aspartate Amino Transferase 13 U/L (0-40); Blood Urea Nitrogen 19 mg/dL (8-23); Calcium 9.2 mg/Dl (8.8-10.2); Carbon Dioxide 26 mmol/L (22-29); Chloride 100 mmol/L (98-107); Globulin 1.6 g/dL (1.3-4.6); Glomerular Filtration Rate 84.4 mL/min (90-130); Glucose 189 mg/dL (74-106); Potassium 3.6 mmol/L (3.5-5.1); Sodium 137 mmol/L (136-145); Total Bilirubin 0.4 mg/dL (0.15-1.2); Total Protein 5.8 g/dL (6.6-8.7)
[2019-10-29] MEDS: budesonide 0.5 mg/2 mL Neb INHALATION ×2 (07:24→19:58)
[2019-10-29] MEDS: albumin 12.5 GM/50 ML VIAL IV ×3 (07:38→21:08)
--- NOTE | 2019-10-29 08:21 | PM.PN ---
Subjective Subjective: Interval history: Patient overall feels his well No acute events overnight Patient continues to pass gas and have bowel movement Medications: Reviewed: Yes Vitals/I&O/Wt Last Vital Signs Temp 97.9 F 10/29/19 08:00 Pulse 115 H 10/29/19 07:33 Resp 18 10/29/19 08:00 BP 120/61 10/29/19 08:00 Pulse Ox 96 10/29/19 08:00 10/28/19 10/29/19 10/29/19 22:59 06:59 14:59 Intake Total 345.333 / 143.992 8484.167 / 1819.833 Output Total 500 / 1000 375 / 1375 Balance -154.667 / -317.334 762.167 / 444.833 Weight last 48 hrs Weight 221 lb 3.2 oz Weight 225 lb 9.6 oz Physical Exam Const: COMMON NORMALS: no apparent distress, oriented x3 and alert EXAM LIMITATIONS: no altered mental status GENERAL APPEARANCE: cooperative ORIENTATION/CONSCIOUSNESS: Yes awake, Yes oriented to person, Yes oriented to place and Yes oriented to time Eye: COMMON NORMALS: PERRL and no scleral icterus PUPIL: Yes PERRL Chest: COMMONS NORMALS: inspection of chest normal Resp: COMMON NORMALS: normal respiratory effort and clear to auscultation bilaterally AUSCULTATION: clear to auscultation bilaterally, no rales and no rhonchi Cardio: COMMON NORMALS: S1 normal heart sound and S2 normal heart sound; negative for no murmurs HEART SOUNDS: S1 normal and S2 normal GI: COMMON NORMALS: soft to palpation; negative for non-tender and negative for no hepatosplenomegaly INSPECTION: Yes normal to inspection AUSCULTATION: Yes normoactive bowel sounds and Yes other (WOUND LOOKS BETTER TODAY,RESIDUAL NECROTIC TISSUES debrided bedside) PALPATION: Yes soft, No firm, No tender, No guarding, No rigid, No no hepatosplenomegaly, No hernia, Yes ascites present, No rebound tenderness present and Yes other (Right upper quadrant drain in place with serous output) Neuro: COMMON NORMALS: oriented x3 SENSORIUM/ORIENTATION: Yes alert, Yes oriented to person, Yes oriented to place and Yes oriented to time Skin: COMMON NORMALS: no mottling LESIONS: other (Wound VAC in place without complication with serosanguineous output) Data Micro: Micro: Microbiology 10/26/19 16:00 Gram Stain - Final Abdomen Wound Culture - Pr eliminary Strep species, gamma-hemolytic A&P Assessment and plan (1) Perforated gastric ulcer: This is a 64 years old gentleman status post repair of perforated gastric ulcer postoperative patient had surgery 10/22/2019 Patient developed superficial surgical site infection, followed by fascial dehiscence required surgical intervention October 28, 2019, undergone surgical debridement of the fascia and subcutaneous layer followed by interrupted closure of the fascia and a wound VAC application. Plan: PLAN OF CARE: CVS: Continue continuous cardiac monitoring, tachycardia and hypertension requires medical management will defer to hospitalist service,better controlled at present Anemia stable H&H PULMONARY: Continue weaning from oxygen Continue Aggressive pulmonary toilet Continue Incentive spirometer every hour Lasix IV when necessary GI: PO intake clears and protein shakes NUTRITION: Wean TPN and start oral protein shakes RENAL: Continue monitoring kidney functions Strict I's and O's Continue electrolyte protocols for replacement including calcium potassium and magnesium INFECTIOUS DISEASE: We will coordinate with hospital service with regard antimicrobial therapy NEUROLOGY: No evidence of neurological deficit GCS 15 out of 15 MOBILITY:continue physical therapy Patient will benefit strongly from acute rehabilitation SKIN AND WOUND: Wound VAC application would be changed every 48-72 hours Continue drain care serous output. Pain control;will switch to po pain meds liquid form We will continue coordinating with hospitalist service Assurance and education Continue encouragement Medical necessity care is expected to cross 2 midnights Status: Acute Code(s): K25.5 - Chronic or unspecified gastric ulcer with perforation (2) Surgical site infection: Antimicrobial therapy Wound VAC change every 48-72 hour Status: Acute Code(s): T81.49XA - Infection following a procedure, other surgical site, initial encounter (3) Dehiscence of closure of fascia, superficial or muscular: Surgical debridement and closure of the fascia followed by wound VAC application Optimize nutrition Most likely patient will develop ventral incisional hernia down the road due to highly attenuated fascia component, I did discuss with the patient about that, as our main focus now to have him heal well with appropriate rehabilitation and then we can address his potential hernia down the road on elective basis. 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
--- NOTE | 2019-10-29 09:30 | PC.SOCIAL ---
IMM Updated Updated pt on Pg 2 IMM. NO questions voiced. Provided pt a copy. Signed, dated, & timed original in chart.
[2019-10-29] MEDS: lisinopril 20 mg Tablet PO (09:57)
[2019-10-29] MEDS: metoprolol succinate ER (24 HR) 50 mg Tablet PO (09:58)
[2019-10-29] MEDS: ipratropium 0.5 mg/2.5 mL Neb INHALATION (10:59)
--- NOTE | 2019-10-29 12:55 | PC.CHAP ---
found the patient to be busy with staff. will revisit tomorrow <rayna Albright.
[2019-10-29] MEDS: sucralfate 1 gm/10 mL Oral Liq UDC PO ×2 (16:09→21:08)
[2019-10-29] MEDS: LORazepam 2 mg/mL INJ 1 mL 0.5 MG IVP (16:13)
[2019-10-29] MEDS: lanolin oint 7 gm 1 APPLIC TOPICAL (18:08)
[2019-10-29] MEDS: pantoprazole 40 MG in sodium chloride 0.9% (plus) 100 ML 20 MG IV ×2 (18:09→23:35)
--- NOTE | 2019-10-29 18:58 | PM.PN ---
Subjective Subjective: Interval history: s/p abdominal wound debridement and wound vac placement yesterday evening.Pain adequately controlled at this time. Worrking with PT this afternoon. Diet resumed. No acute complaints at this time. Wound vac with bloody serosanginous discharge. LE doppler with occlusive DVT. Medications: Reviewed: Yes Vitals/I&O/Wt Last Vital Signs Temp 98.5 F 10/29/19 18:00 Pulse 107 H 10/29/19 18:00 Resp 15 10/29/19 18:00 BP 100/73 10/29/19 18:00 Pulse Ox 97 10/29/19 18:00 10/29/19 10/29/19 10/29/19 06:59 14:59 22:59 Intake Total 1137.167 / 0201.315 8553.167 / 1613.167 540 / 2153.167 Output Total 375 / 1375 330 / 330 255 / 585 Balance 762.167 / 788.922 3332.167 / 1283.167 285 / 1568.167 Weight last 48 hrs Weight 100.335 kg Weight 102.33 kg Physical Exam Narrative: EXAM NARRATIVE: Gen: awake, alert and oriented CVS: S1S2 N RS; CTA b/l abd: wound vac in place, not opened for exam, distended, non tender. BS+ Data Micro: Micro: Microbiology 10/26/19 16:00 Gram Stain - Final Abdomen Wound Culture - Pr eliminary Enterococcus fa ecium group vre Gram Negative R ods A&P Assessment and plan (1) Perforated gastric ulcer: For perforated gastric ulcer patient is currently postop day 7. UGI series with no leaks. Started on po meds and clear diet. TPN to continue at goal rate of 50 with addition of protein shakes to facilitate healing. Stop TPN once able to take po diet consistently. Worsening wound dehiscence likely due to mechanical stress from coughing, abdominal fascia weakness from smoking, steroids. Taken to the OR last evening to get wound vac. On empiric zosyn already. Vancomycin added yesterday, however appears that gamma hemolyticus identified as VRE, will switch to linezolid. Unclear if this represents colonization after recent surgery vs true pathogen. BP better controlled. Tachycardia persisting, between 100-120 MIKEY is resolved. DVT now detected again on LE Doppler. A VQ scan for PE was negative. Patient already has an IVC filter in place as detected on x-rays. continue DVT prophylaxis with heparin. Continue Dilaudid for pain control Incentive spirometry Wound care per surgical team Bronchitis continue [id number] nebulizations with DuoNeb's and budesonide. Status: Acute Code(s): K25.5 - Chronic or unspecified gastric ulcer with perforation (2) Surgical site infection: Superficial swab cx with VRE fecium and GNR pending identification Status: Acute Code(s): T81.49XA - Infection following a procedure, other surgical site, initial encounter (3) Sinus tachycardia: resume po metoprolol Status: Acute Code(s): R00.0 - Tachycardia, unspecified (4) Hypertension: resume po lisinopril Status: Acute Code(s): I10 - Essential (primary) hypertension Attestations Medical Necessity Statement*: post op wound dehiscence and infection Coding Level of Care Code Acute Smog Technician for [facility] Fwd Diagnoses Perforated gastric ulcer K25.5 Surgical site infection T81.49XA Sinus tachycardia R00.0 Hypertension I10
[2019-10-29] MEDS: FUROsemide 10 mg/mL SDV 4mL 40 MG IVP (19:45)
[2019-10-29] MEDS: linezolid 600 mg Tablet PO (19:45)
--- NOTE | 2019-10-29 20:17 | PC.NURSE ---
Pt found sitting up in chair with eyes closed. Pt arouses easily, during assessment pt is labored in breathing with audible expiratory wheezes noted at bedside. RR is 24, O2 sat 95%. During auscultation of lung sounds expiratory coarse rales auscultated throughout with upper airway wheezing. Pt remains on 2L NC. Persistent wet cough is noted, with moderate sputum production creamy to clear sputum. 40mg IV lasix given at this time for pulmonary congestion. RT at bedside to administer breathing treatment and Incentive spirometer therapy. Will continue to monitor.
[2019-10-30] VITALS (22 sets, daily range): BP systolic 99–157; BP diastolic 60–116; PULSE 100–121; RESP 14–26; TEMP 36.7–37.2; O2SAT 24–98
[2019-10-30] MEDS: heparin 5,000 unit/mL INJ 1 mL 5000 UNIT SUBCUT ×2 (02:17→13:47)
[2019-10-30] MEDS: sucralfate 1 gm/10 mL Oral Liq UDC PO ×4 (02:17→21:09)
[2019-10-30] MEDS: HYDROmorphone 1 mg/mL INJ 1 mL 2 MG IVP ×2 (02:24→06:43)
[2019-10-30] MEDS: piperacillin-tazobactam 3.375 GM in sodium chloride 0.9% (plus) 50 ML IV ×3 (02:50→21:07)
[2019-10-30] MEDS: pantoprazole 40 MG in sodium chloride 0.9% (plus) 100 ML 20 MG IV ×5 (04:49→23:53)
[2019-10-30 05:26] LABS: Basophils % 0.2 %; Eosinophils % 0.4 %; Hematocrit 28.2 % (42.0-52.0); Hemoglobin 8.9 g/dL (11.7-16.6); Lymphocytes # 0.7 10^3/uL (0.8-4.8); Lymphocytes % 6.3 %; Mean Corpuscular HGB Conc 31.6 g/dL (30.0-36.0); Mean Corpuscular Hemoglobin 30.1 pg (28.0-34.0); Mean Corpuscular Volume 95.3 fL (80-94); Mean Platelet Volume 10.6 fL (7.4-10.4); Monocytes # 0.5 10^3/uL (0.2-0.9); Monocytes % 4.7 %; Neutrophils # 9.5 10^3/uL (1.8-7.7); Neutrophils % 87.9 %; Nucleated Red Blood Cells % 0 %; Platelet Count 155 10^3/cmm (130-400); Red Blood Count 2.96 10^6/uL (4.1-5.3); Red Cell Distribution Width 15.7 % (12.1-15.1); White Blood Count 10.7 10^3/uL (4.0-10.0)
[2019-10-30 05:50] LABS: Alanine Aminotransferase 9 U/L (0-41); Albumin Level 3.7 g/dL (3.5-5.2); Alkaline Phosphatase 48 IU/L (40-130); Anion Gap 14.6 (5-19); Aspartate Amino Transferase 11 U/L (0-40); Blood Urea Nitrogen 25 mg/dL (8-23); Calcium 9.2 mg/Dl (8.8-10.2); Carbon Dioxide 25 mmol/L (22-29); Chloride 102 mmol/L (98-107); Globulin 2.7 g/dL (1.3-4.6); Glomerular Filtration Rate 50.7 mL/min (90-130); Glucose 135 mg/dL (74-106); Potassium 3.6 mmol/L (3.5-5.1); Sodium 138 mmol/L (136-145); Total Bilirubin 0.5 mg/dL (0.15-1.2); Total Protein 6.4 g/dL (6.6-8.7)
[2019-10-30] MEDS: albumin 12.5 GM/50 ML VIAL IV ×3 (06:13→22:19)
[2019-10-30] MEDS: linezolid 600 mg Tablet PO ×2 (06:17→21:09)
[2019-10-30] MEDS: budesonide 0.5 mg/2 mL Neb INHALATION ×2 (07:14→20:06)
--- NOTE | 2019-10-30 07:44 | PM.PN ---
Subjective Subjective: Interval history: Patient overall feels better, continues to have productive cough Was given 40 mg of Lasix IV yesterday, otherwise no acute events overnight Grew VRE from the wound and he is currently in isolation Medications: Reviewed: Yes Vitals/I&O/Wt Last Vital Signs Temp 98.8 F 10/30/19 06:21 Pulse 100 10/30/19 07:16 Resp 16 10/30/19 07:15 BP 116/72 10/30/19 06:21 Pulse Ox 96 10/30/19 07:15 10/29/19 10/30/19 10/30/19 22:59 06:59 14:59 Intake Total 1195.5 / 2808.667 300 / 3108.667 Output Total 805 / 1135 360 / 1495 Balance 390.5 / 1673.667 -60 / 1613.667 Weight last 48 hrs Weight 240 lb 4.8 oz Weight 221 lb 3.2 oz Physical Exam Const: COMMON NORMALS: no apparent distress and oriented x3 EXAM LIMITATIONS: no altered mental status GENERAL APPEARANCE: cooperative ORIENTATION/CONSCIOUSNESS: Yes awake, Yes oriented to person, Yes oriented to place and Yes oriented to time Eye: COMMON NORMALS: PERRL and no scleral icterus PUPIL: Yes PERRL Chest: COMMONS NORMALS: inspection of chest normal Resp: COMMON NORMALS: normal respiratory effort and clear to auscultation bilaterally AUSCULTATION: clear to auscultation bilaterally Cardio: COMMON NORMALS: S1 normal heart sound and S2 normal heart sound; negative for no murmurs HEART SOUNDS: S1 normal and S2 normal GI: COMMON NORMALS: soft to palpation; negative for no hepatosplenomegaly INSPECTION: Yes normal to inspection AUSCULTATION: Yes normoactive bowel sounds PALPATION: Yes soft, No firm, No tender, No guarding, No rigid and No no hepatosplenomegaly Neuro: COMMON NORMALS: oriented x3 SENSORIUM/ORIENTATION: Yes oriented to person, Yes oriented to place and Yes oriented to time Skin: COMMON NORMALS: no mottling GENERAL SKIN EXAM: other (No evidence of evisceration/purulent-like material with no fecal odor) LESIONS: other (Wound VAC was taken down by me, patient does have controlled fascial dehiscence will switch to twice daily wet-to-dry dressing change or as needed) Data Micro: Micro: Microbiology 10/26/19 16:00 Gram Stain - Final Abdomen Wound Culture - Pr eliminary Enterococcus fa ecium group vre Gram Negative R ods A&P Assessment and plan (1) Perforated gastric ulcer: This is a 64 years old gentleman status post repair of perforated gastric ulcer postoperative patient had surgery 10/22/2019 Patient developed superficial surgical site infection, followed by fascial dehiscence required surgical intervention October 28, 2019, undergone surgical debridement of the fascia and subcutaneous layer followed by interrupted closure of the fascia and a wound VAC application. Plan: PLAN OF CARE: CVS: Continue continuous cardiac monitoring, tachycardia and hypertension requires medical management will defer to hospitalist service,better controlled at present Anemia stable H&H PULMONARY: Continue weaning from oxygen Continue Aggressive pulmonary toilet Continue Incentive spirometer every hour Lasix IV when necessary GI: We will advance to soft GI diet and protein shakes NUTRITION: oral protein shakes RENAL: Continue monitoring kidney functions Strict I's and O's Continue electrolyte protocols for replacement including calcium potassium and magnesium INFECTIOUS DISEASE: We will coordinate with hospital service with regard antimicrobial therapy NEUROLOGY: No evidence of neurological deficit GCS 15 out of 15 MOBILITY:continue physical therapy Patient will benefit strongly from acute rehabilitation SKIN AND WOUND: Twice daily wet-to-dry using Kerlix followed by ABD or as needed Continue drain care serous output. Pain control;will switch to po pain meds liquid form/wean off parenteral analgesia We will continue coordinating with hospitalist service Assurance and education Continue encouragement Medical necessity care is expected to cross 2 midnights Status: Acute Code(s): K25.5 - Chronic or unspecified gastric ulcer with perforation (2) Surgical site infection: Antimicrobial therapy Twice daily wet-to-dry dressing change till the wound gets cleaners then will re-apply wound VAC Status: Acute Code(s): T81.49XA - Infection following a procedure, other surgical site, initial encounter (3) Dehiscence of closure of fascia, superficial or muscular: Surgical debridement and closure of the fascia followed by wound VAC application Optimize nutrition Most likely patient will develop ventral incisional hernia down the road due to highly attenuated fascia component, I did discuss with the patient about that, as our main focus now to have him heal well with appropriate rehabilitation and then we can address his potential hernia down the road on elective basis. 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
--- NOTE | 2019-10-30 09:19 | PM.PN ---
Subjective Subjective: Interval history: Patient reports of worsening pain since stopping fentanyl yesterday. This morning wound VAC was taken off as the base of his fascial defect was noted to be oozing with potentially infectious material. Remains afebrile. MIKEY up to 1.4 today. May be a combination of vancomycin and Lasix that he received yesterday. Systolic blood pressure this morning in the 90s. Patient denies any complaints of dizziness. Vancomycin discontinued in view of VRE isolate. Linezolid has been started. Medications: Reviewed: Yes Vitals/I&O/Wt Last Vital Signs Temp 98.8 F 10/30/19 06:21 Pulse 100 10/30/19 07:16 Resp 16 10/30/19 07:15 BP 116/72 10/30/19 06:21 Pulse Ox 96 10/30/19 07:15 10/29/19 10/30/19 10/30/19 22:59 06:59 14:59 Intake Total 1195.5 / 2808.667 300 / 3108.667 Output Total 805 / 1135 360 / 1495 Balance 390.5 / 1673.667 -60 / 1613.667 Weight last 48 hrs Weight 108.998 kg Weight 100.335 kg Physical Exam Narrative: EXAM NARRATIVE: Gen: awake, alert and oriented CVS: S1S2 N RS; CTA b/l abd: wound vac has since been removed. Dressing overlying the abdomen not open for exam. Her abdomen continues to look distended and has an abdominal binder on top Const: COMMON NORMALS: no apparent distress, oriented x3 and alert Resp: COMMON NORMALS: normal respiratory effort, no retractions and no use of accessory muscles EFFORT & INSPECTION: Yes able to speak in complete sentences OTHER: mild B/L rales, improved on exam Cardio: COMMON NORMALS: regular rate (tachycardia), regular rhythm, S1 normal heart sound, S2 normal heart sound, no gallops, no murmurs, no rub and peripheral pulses 2+ throughout RATE: regular rate (tachycardia) RHYTHM: regular rhythm HEART SOUNDS: S1 normal and S2 normal PERIPHERAL PULSES: pulses 2+ throughout GI: OTHER: Neuro: COMMON NORMALS: oriented x3, CN's II-XII intact bilaterally, moves all extremities and no focal motor deficits SENSORIUM/ORIENTATION: Yes alert Psych: COMMON NORMALS: mental status grossly normal and affect normal Data Micro: Micro: Microbiology 10/26/19 16:00 Gram Stain - Final Abdomen Wound Culture - Pr eliminary Enterococcus fa ecium group vre Gram Negative R ods A&P Assessment and plan (1) Perforated gastric ulcer: For perforated gastric ulcer patient is currently postop day 8. UGI series with no leaks. Started on po meds and diet has been advanced.. TPN discontinued. Worsening wound dehiscence likely due to mechanical stress from coughing, abdominal fascia weakness from smoking, steroids. Also concern for postop wound infection. Superficial wound culture with gram-negative rods pending identification and VRE. . On empiric zosyn already. Will adjust as with identification of gram-negative rods. Linezolid started for VRE. Unclear if this represents colonization after recent surgery vs true pathogen. BP now with systolic in the 90s. Will hold lisinopril today given MIKEY and also SBP 90s. Metoprolol to continue. Hydralazine as needed for blood pressure control if needed.. MIKEY had resolved but now again at 1.4, likely is a combination of receiving Lasix and vancomycin yesterday. We will hold off on any further Lasix today and to minimize further worsening of renal function. DVT now detected again on LE Doppler. A VQ scan for PE was negative. Patient already has an IVC filter in place as detected on x-rays. continue DVT prophylaxis with heparin. Not a candidate for full dose anticoagulation given recent surgeries Patient reports significant pain after stopping fentanyl. We will resume fentanyl PRN now and adjust other pain medications. Incentive spirometry Wound care per surgical team Encourage PT OT and ambulation Bronchitis continue [id number] nebulizations with DuoNeb's and budesonide We will plan for discharge to SNF as given multiple comorbidities and deconditioning in the hospital he is not likely a candidate for safe discharge to home.. Status: Acute Code(s): K25.5 - Chronic or unspecified gastric ulcer with perforation (2) Surgical site infection: Superficial swab cx with VRE fecium and GNR pending identification Status: Acute Code(s): T81.49XA - Infection following a procedure, other surgical site, initial encounter (3) Sinus tachycardia: resume po metoprolol Status: Acute Code(s): R00.0 - Tachycardia, unspecified (4) Hypertension: resume po lisinopril Status: Acute Code(s): I10 - Essential (primary) hypertension Attestations Medical Necessity Statement*: Postop from a perforated emergent gastric ulcer surgery. Active issues currently include postop wound dehiscence SSDI. Coding Level of Care Code Acute Roller Bearing Inspector for g Fwd Diagnoses Perforated gastric ulcer K25.5 Surgical site infection T81.49XA Sinus tachycardia R00.0 Hypertension I10
[2019-10-30] MEDS: metoprolol succinate ER (24 HR) 50 mg Tablet PO (10:09)
[2019-10-30] MEDS: HYDROcodone-APAP 7.5-325 mg/15 mL UDC PO ×3 (10:12→23:53)
[2019-10-30] MEDS: fentaNYL 50 mcg/mL INJ 2mL 25 MCG IVP ×2 (13:49→22:19)
--- NOTE | 2019-10-30 14:37 | PC.CHAP ---
This patient is contact precaution. Chaplain caldera outside of room. 2min.
[2019-10-30] MEDS: acetaminophen 325 mg Tablet 650 MG PO (17:20)
--- NOTE | 2019-10-30 18:01 | PC.OT ---
OT TX ATTEMPTED AT 1320. PT HAD VISITORS IN ROOM AND STATES I AM GOING TO PASS ON OT TODAY. I WORKED REALLY HARD WITH PHYSICAL THERAPY EARLIER . THERAPIST TO ATTEMPT TX AGAIN TOMORROW.
[2019-10-30] MEDS: ALPRAZolam 0.25 mg Tablet PO (23:53)
[2019-10-31] VITALS (18 sets, daily range): BP systolic 104–172; BP diastolic 62–111; PULSE 87–116; RESP 17–27; TEMP 37; O2SAT 93–97
[2019-10-31] MEDS: sucralfate 1 gm/10 mL Oral Liq UDC PO ×4 (04:51→20:32)
[2019-10-31] MEDS: HYDROcodone-APAP 7.5-325 mg/15 mL UDC PO ×2 (04:52→08:58)
[2019-10-31] MEDS: piperacillin-tazobactam 3.375 GM in sodium chloride 0.9% (plus) 50 ML IV ×2 (04:52→20:32)
[2019-10-31] MEDS: heparin 5,000 unit/mL INJ 1 mL 5000 UNIT SUBCUT ×2 (05:00→17:52)
[2019-10-31 05:34] LABS: Basophils % 0.2 %; Eosinophils # 0.1 10^3/uL (0.0-0.8); Eosinophils % 1.2 %; Hematocrit 27.6 % (42.0-52.0); Hemoglobin 8.7 g/dL (11.7-16.6); Lymphocytes # 0.8 10^3/uL (0.8-4.8); Lymphocytes % 9.9 %; Mean Corpuscular HGB Conc 31.5 g/dL (30.0-36.0); Mean Corpuscular Hemoglobin 29.8 pg (28.0-34.0); Mean Corpuscular Volume 94.5 fL (80-94); Mean Platelet Volume 10.5 fL (7.4-10.4); Monocytes # 0.4 10^3/uL (0.2-0.9); Monocytes % 5.5 %; Neutrophils # 6.7 10^3/uL (1.8-7.7); Neutrophils % 82.7 %; Nucleated Red Blood Cells % 0 %; Platelet Count 184 10^3/cmm (130-400); Red Blood Count 2.92 10^6/uL (4.1-5.3); Red Cell Distribution Width 15.5 % (12.1-15.1); White Blood Count 8.1 10^3/uL (4.0-10.0)
[2019-10-31 06:05] LABS: Alanine Aminotransferase 9 U/L (0-41); Albumin Level 3.8 g/dL (3.5-5.2); Alkaline Phosphatase 54 IU/L (40-130); Anion Gap 16.1 (5-19); Aspartate Amino Transferase 14 U/L (0-40); Blood Urea Nitrogen 23 mg/dL (8-23); Calcium 9.3 mg/Dl (8.8-10.2); Carbon Dioxide 25 mmol/L (22-29); Chloride 104 mmol/L (98-107); Globulin 2.7 g/dL (1.3-4.6); Glomerular Filtration Rate 55.2 mL/min (90-130); Glucose 119 mg/dL (74-106); Potassium 3.1 mmol/L (3.5-5.1); Sodium 142 mmol/L (136-145); Total Bilirubin 0.5 mg/dL (0.15-1.2); Total Protein 6.5 g/dL (6.6-8.7)
[2019-10-31] MEDS: albumin 12.5 GM/50 ML VIAL IV (06:11)
[2019-10-31] MEDS: pantoprazole 40 MG in sodium chloride 0.9% (plus) 100 ML 20 MG IV ×4 (06:12→23:35)
[2019-10-31] MEDS: linezolid 600 mg Tablet PO ×2 (07:24→20:32)
--- NOTE | 2019-10-31 08:01 | PM.PN ---
Subjective Subjective: Interval history: . Patient overall is performing well yet he continues to have issues with pain control Creatinine is 1.3 which is better yet he did have some drop in H&H likely due to raw area of the wound has been losing some blood slowly Otherwise he has been tolerating his soft GI diet Medications: Reviewed: Yes Vitals/I&O/Wt Last Vital Signs Temp 98.4 F 10/30/19 20:00 Pulse 87 10/31/19 06:00 Resp 17 10/31/19 06:00 BP 107/69 10/31/19 06:00 Pulse Ox 94 10/31/19 06:00 10/30/19 10/31/19 10/31/19 22:59 06:59 14:59 Intake Total 450 / 376.742 9797.833 / 2169.500 50 / 50 Output Total 650 / 850 300 / 1150 Balance -200 / 73.667 945.833 / 1019.500 50 / 50 Weight last 48 hrs Weight 244 lb 14.4 oz Weight 240 lb 4.8 oz Physical Exam Const: COMMON NORMALS: no apparent distress, oriented x3 and alert EXAM LIMITATIONS: no altered mental status GENERAL APPEARANCE: cooperative ORIENTATION/CONSCIOUSNESS: Yes awake, Yes oriented to person, Yes oriented to place and Yes oriented to time Eye: COMMON NORMALS: PERRL and no scleral icterus PUPIL: Yes PERRL Chest: COMMONS NORMALS: inspection of chest normal Resp: COMMON NORMALS: normal respiratory effort and clear to auscultation bilaterally AUSCULTATION: clear to auscultation bilaterally, no rales and no rhonchi Cardio: COMMON NORMALS: S1 normal heart sound and S2 normal heart sound; negative for no murmurs HEART SOUNDS: S1 normal and S2 normal GI: COMMON NORMALS: soft to palpation; negative for non-tender and negative for no hepatosplenomegaly INSPECTION: Yes normal to inspection AUSCULTATION: Yes normoactive bowel sounds PALPATION: Yes soft, No firm, No tender, No guarding, No rigid, No no hepatosplenomegaly, No hernia, Yes ascites present, No rebound tenderness present and Yes other (Right upper quadrant drain in place with serosanguinous output) Neuro: COMMON NORMALS: oriented x3 SENSORIUM/ORIENTATION: Yes alert, Yes oriented to person, Yes oriented to place and Yes oriented to time Skin: COMMON NORMALS: no mottling GENERAL SKIN EXAM: other (No evidence of evisceration/ no fecal odor) LESIONS: other (patient does have controlled fascial dehiscence stable otherwise) WOUNDS: Yes wounds noted (packing was done by me bed side wet to dry using Kerlix) WOUNDS: Yes wounds noted (packing was done by or bed side wet to dry using Kerlix) Data Micro: Micro: Microbiology 10/26/19 16:00 Gram Stain - Final Abdomen Wound Culture - Pr eliminary Enterococcus fa ecium group vre Klebsiella pneu moniae Stephanie albican s A&P Assessment and plan (1) Perforated gastric ulcer: This is a 64 years old gentleman status post repair of perforated gastric ulcer postoperative patient had surgery 10/22/2019 Patient developed superficial surgical site infection, followed by fascial dehiscence required surgical intervention October 28, 2019, undergone surgical debridement of the fascia and subcutaneous layer followed by interrupted closure of the fascia and a wound VAC application. Plan: PLAN OF CARE: CVS: Continue continuous cardiac monitoring, tachycardia and hypertension requires medical management will defer to hospitalist service,better controlled at present Anemia stable H&H PULMONARY: Continue weaning from oxygen Continue Aggressive pulmonary toilet Continue Incentive spirometer every hour Lasix IV when necessary GI:continue soft GI diet and protein shakes NUTRITION: oral protein shakes RENAL: Continue monitoring kidney functions Strict I's and O's Continue electrolyte protocols for replacement including calcium potassium and magnesium INFECTIOUS DISEASE: We will coordinate with hospital service with regard antimicrobial therapy NEUROLOGY: No evidence of neurological deficit GCS 15 out of 15 MOBILITY:continue physical therapy Patient will benefit strongly from acute rehabilitation SKIN AND WOUND: Twice daily wet-to-dry using Kerlix followed by ABD and/or as needed Continue drain care serous output. Pain control: Highly recommend to have pain controlled with transdermal patches and p.o. pain medications and DC IV pain meds We will continue coordinating with hospitalist service Assurance and education Continue encouragement Medical necessity care is expected to cross 2 midnights Status: Acute Code(s): K25.5 - Chronic or unspecified gastric ulcer with perforation (2) Surgical site infection: Antimicrobial therapy Twice daily wet-to-dry dressing change till the wound gets street cleaner then will re-apply wound VAC Status: Acute Code(s): T81.49XA - Infection following a procedure, other surgical site, initial encounter (3) Dehiscence of closure of fascia, superficial or muscular: Surgical debridement and closure of the fascia followed by wound VAC application Optimize nutrition Most likely patient will develop ventral incisional hernia down the road due to highly attenuated fascia component, I did discuss with the patient about that, as our main focus now to have him heal well with appropriate rehabilitation and then we can address his potential hernia down the road on elective basis. We will continue abdominal binder for extra support Status: Acute Code(s): T81.32XA - Disruption of internal operation (surgical) wound, not elsewhere classified, initial encounter Attestations Medical Necessity Statement*: Medical necessity care is expected to cross 2 midnights Coding Level of Care Code Acute Digital Media Representative for [facility] Fwd Diagnoses Perforated gastric ulcer K25.5 Surgical site infection T81.49XA Dehiscence of closure of fascia, superficial or muscular T81.32XA
[2019-10-31] MEDS: budesonide 0.5 mg/2 mL Neb INHALATION ×2 (08:15→19:52)
[2019-10-31] MEDS: ALPRAZolam 0.25 mg Tablet PO ×2 (08:58→19:27)
[2019-10-31] MEDS: metoprolol succinate ER (24 HR) 50 mg Tablet PO (08:59)
--- NOTE | 2019-10-31 09:04 | P.PN_ITS ---
Subjective Subjective: Interval history: Seen and examined while undergoing dressing change at bedside. Anterior abdominal wound is open, necrotic tissue at base. No gross discharge. Patient had suboptimal pain control with p.o. pain medications and resumption of IV fentanyl. States he was in a lot of discomfort overnight. Hemoglobin at 8.7 today. Hypokalemia 3.1 heart rate between 88-1 01 overnight. Blood pressure 104/71. Creatinine stable at 1.3. Lisinopril on hold. Gram-negative rods from the wound identified as Klebsiella pneumonia susceptible to Zosyn. Vitals/I&O/Wt Last Vital Signs Temp 98.4 F 10/30/19 20:00 Pulse 101 H 10/31/19 08:24 Resp 20 H 10/31/19 08:24 BP 104/71 10/31/19 08:00 Pulse Ox 97 10/31/19 08:24 10/30/19 10/31/19 10/31/19 22:59 06:59 14:59 Intake Total 450 / 000.667 0779.833 / 2169.500 170 / 170 Output Total 650 / 850 300 / 1150 Balance -200 / 73.667 945.833 / 1019.500 170 / 170 Weight last 48 hrs Weight 111.085 kg Weight 108.998 kg Physical Exam Narrative: EXAM NARRATIVE: Gen: awake, alert and oriented CVS: S1S2 N RS; CTA b/l abd: Anterior abdominal wound with open wound tracking down the fascia. Mostly contains of granulation tissue with some necrotic tissue at the top part. No gross pus discharge seen. Const: COMMON NORMALS: no apparent distress, oriented x3 and alert Resp: COMMON NORMALS: normal respiratory effort, no retractions and no use of accessory muscles EFFORT & INSPECTION: Yes able to speak in complete sentences Cardio: COMMON NORMALS: regular rate (tachycardia), regular rhythm, S1 normal heart sound, S2 normal heart sound, no gallops, no murmurs, no rub and peripheral pulses 2+ throughout RATE: regular rate (tachycardia) RHYTHM: regular rhythm HEART SOUNDS: S1 normal and S2 normal PERIPHERAL PULSES: pulses 2+ throughout GI: OTHER: Neuro: COMMON NORMALS: oriented x3, CN's II-XII intact bilaterally, moves all extremities and no focal motor deficits SENSORIUM/ORIENTATION: Yes alert Psych: COMMON NORMALS: mental status grossly normal and affect normal Data Micro: Micro: Microbiology 10/26/19 16:00 Gram Stain - Final Abdomen Wound Culture - Pr eliminary Enterococcus fa ecium group vre Klebsiella pneu moniae Stephanie albican s A&P Assessment and plan (1) Perforated gastric ulcer: For perforated gastric ulcer patient is currently postop day 8. UGI series with no leaks. Started on po meds and diet has been advanced.. TPN discontinued. Worsening wound dehiscence likely due to mechanical stress from coughing, abdominal fascia weakness from smoking, steroids. Also concern for postop wound infection. Superficial wound culture with gram-negative rods pending identification and VRE. . On empiric zosyn already. Will adjust as with identification of gram-negative rods. Linezolid started for VRE. Unclear if this represents colonization after recent surgery vs true pathogen. BP now with systolic in the 90s. Will hold lisinopril today given MIKEY and also SBP 90s. Metoprolol to continue. Hydralazine as needed for blood pressure control if needed.. MIKEY had resolved but now again at 1.4, likely is a combination of receiving Lasix and vancomycin yesterday. We will hold off on any further Lasix today and to minimize further worsening of renal function. DVT now detected again on LE Doppler. A VQ scan for PE was negative. Patient already has an IVC filter in place as detected on x-rays. continue DVT prophylaxis with heparin. Not a candidate for full dose anticoagulation given recent surgeries Patient reports significant pain after stopping fentanyl. We will resume fentanyl PRN now and adjust other pain medications. Incentive spirometry Wound care per surgical team Encourage PT OT and ambulation Bronchitis continue [id number]-[id number] nebulizations with DuoNeb's and budesonide We will plan for discharge to SNF as given multiple comorbidities and deconditioning in the hospital he is not likely a candidate for safe discharge to home.. Status: Acute Code(s): K25.5 - Chronic or unspecified gastric ulcer with perforation (2) Surgical site infection: Superficial swab cx with VRE fecium and GNR pending identification Status: Acute Code(s): T81.49XA - Infection following a procedure, other surgical site, initial encounter (3) Sinus tachycardia: resume po metoprolol Status: Acute Code(s): R00.0 - Tachycardia, unspecified (4) Hypertension: resume po lisinopril Status: Acute Code(s): I10 - Essential (primary) hypertension Attestations Medical Necessity Statement*: Remains admitted for management of postop wound dehiscence slowly recovering Coding Level of Care Code Acute Floor Representative for [facility] Fwd Exam Problem Focused Diagnoses Perforated gastric ulcer K25.5 Surgical site infection T81.49XA Sinus tachycardia R00.0 Hypertension I10
[2019-10-31] MEDS: fentaNYL 50 mcg Patch 1 PATCH TRANSDERMA (09:46)
[2019-10-31] MEDS: potassium chloride premix 40 MEQ/100 ML PREMIX 25 MEQ IV ×2 (09:47→13:38)
--- NOTE | 2019-10-31 10:15 | PC.SOCIAL ---
IMM Updated Page 2 of IMM updated and given to patient. Initialed, dated, and timed a placed back in chart.
--- NOTE | 2019-10-31 12:13 | PC.CHAP ---
Pastoral Care Encounter/Spiritual Assessment Type of Contact [] Declined bunch breaker machine operator visit [] Patient/Family/Request visit [] Outpatient visit [x] Follow-up visit [] Physician referral [] Code/Alert [] Routine visit [] Staff referral [] Actively dying [] Patient sleeping [] Family support [] [] Out of room [] Palliative care [] [] Receiving care in room [] Pre-surgical visit [] Trauma [] Long length of stay [x] ICU visit [] Other: Relational/Emotional Strength [] Patient feels connected with others/family/visitors/staff [] Distress [] Loneliness/isolation [] Abandonment Spirituality of Patient [] Person of Wendy [] Attends Amish of their Wendy [] Believes in Prayer [] Reads Bible or Cheondoism materials [] There are Spiritual issues to be addressed Network Technology Instructor Interventions [x] Prayer [] Active listening [] Non-anxious presence [] Spiritual/emotional support [] Crisis/trauma care [] Spiritual counseling [] Bereavement support [] Provided bereavement packet [] Provided Bible/devotional materials [] Provided toy/stuffed animal, coloring book to patient or family member [] Completed spiritual assessment [] Provided Communion [] Anointing/[place] [] Salvation [] Other: Impact on Illness or Injury [] Angry [] Fearful [] Anxious [] Often cries [] Exhaustion [] Unable to work [] Unable to attend evangelical [] Unable to walk/stand [] Unable to read [] Unable to drive [] Unable to eat/drink [] Unable to sleep [] Unable to be with family [] Other: Summary The Network Technology Instructor could not visit with patien due to him on precautions. Network Technology Instructor prayed outside of room. Time spent with patient 10 min.
[2019-10-31] MEDS: oxyCODONE 5 mg IR Tab/Cap PO ×2 (13:38→19:27)
--- NOTE | 2019-10-31 18:57 | PC.NURSE ---
Dr. Holland on floor to see patient. Dressing changed at this time. Dehiscence noted at this time, with bowel visable. Physician packed incision and reinforced with ABD pad. Verbal order received from physician to leave dressing as is and reinforce with tape. New abdominal binder received from OR and will be applied by FABRICIO Rahman.
--- NOTE | 2019-10-31 19:36 | PC.NURSE ---
The RN went into room to complete shift assessment, patient verbalized no one will give him pain meds .This RN educated him on all pain medications that have a current order and time they can be given next. Explained to him that Fentanyl and [place] has been discontinued. Oxy IR and Xanax given for patient comfort as patient reported pain in ABD a 9. Educated patient the importance of hugging of pillow while coughing and continue to do deep breathing exercises. IV pain meds maybe readdressed in the morning after surgery however no current orders. Patient stated It is not possible for me to hold the pillow every time I cough and I need more pain medicine . Educated patient importance of nutrition and proper movements to help heal and prevent incision opening more. Patient closed eyes without responding or verbalized understanding to teachings. Will attempt later.
[2019-10-31] MEDS: ipratropium 0.5 mg/2.5 mL Neb INHALATION (19:52)
--- NOTE | 2019-10-31 20:57 | PC.NURSE ---
Removed old abdominal binder, no change of bandages or ABD pad per Dr Garrison. Foam taped applied around binder on top and bottom for patient comfort and added genesis pad to absorb and protect new binder. Patient did 4 coughs while this RN in room holding pillow. Patient stated tell that respiratory girl not to come in here at all tonight I need to sleep for surgery . This RN educated patient again the importance of respiratory care and treatments. He will be given medicine during procedure for him to sleep. Patient stated to this RN You don't need to wake me either if I am sleeping . Patient educated this RN makes rounds every hour for meds, patient needs and repositioning. Patient needs to maintain all treatments prior to surgery for best practice. This RN stated The more non-compliant you are with physicians orders the longer hospitalization you may face and/or complications .
[2019-10-31] MEDS: hyDRALAzine 20 mg/mL INJ 1 mL 5 MG IVP (22:32)
[2019-10-31] MEDS: acetaminophen 325 mg Tablet 650 MG PO (23:35)
--- NOTE | 2019-10-31 23:49 | PC.NURSE ---
This RN changed genesis directly under ABD binder without changing direct surgical dressing. Patient requested ABD binder not be placed on. Patient educated he needs to wear this due to the incision in his abdomen to hold pressure and split with coughing. Patient then allowed this nurse to reapply. Patient stated this thing (abd binder) hurts too much and you wont give me pain meds when I want them . Re-educated patient that this RN has brought pain meds in every time they have come due as this RN just gave Tylenol and it not yet time for Oxy IR. Patient again closed his eyes and refused to verbalize understanding.
[2019-11-01] VITALS (20 sets, daily range): BP systolic 139–180; BP diastolic 87–117; PULSE 65–109; RESP 16–24; TEMP 36.6–37.1; O2SAT 92–100
[2019-11-01] MEDS: ondansetron 2 mg/ML SDV 2 mL 4 MG IVP ×3 (00:57→08:53)
--- NOTE | 2019-11-01 02:36 | PC.NURSE ---
Food and beverage removed from patients room at midnight
[2019-11-01] MEDS: piperacillin-tazobactam 3.375 GM in sodium chloride 0.9% (plus) 50 ML IV ×3 (03:13→18:43)
[2019-11-01 04:32] LABS: Basophils % 0.3 %; Eosinophils # 0.1 10^3/uL (0.0-0.8); Eosinophils % 1.2 %; Hematocrit 28.1 % (42.0-52.0); Hemoglobin 8.8 g/dL (11.7-16.6); Lymphocytes # 0.6 10^3/uL (0.8-4.8); Lymphocytes % 8.3 %; Mean Corpuscular HGB Conc 31.3 g/dL (30.0-36.0); Mean Corpuscular Hemoglobin 29.7 pg (28.0-34.0); Mean Corpuscular Volume 94.9 fL (80-94); Mean Platelet Volume 9.9 fL (7.4-10.4); Monocytes # 0.4 10^3/uL (0.2-0.9); Monocytes % 4.7 %; Neutrophils # 6.6 10^3/uL (1.8-7.7); Nucleated Red Blood Cells % 0 %; Platelet Count 224 10^3/cmm (130-400); Red Blood Count 2.96 10^6/uL (4.1-5.3); Red Cell Distribution Width 15.5 % (12.1-15.1); White Blood Count 7.7 10^3/uL (4.0-10.0)
[2019-11-01] MEDS: pantoprazole 40 MG in sodium chloride 0.9% (plus) 100 ML 20 MG IV ×4 (04:44→19:42)
[2019-11-01 04:59] LABS: Anion Gap 12.8 (5-19); Blood Urea Nitrogen 15 mg/dL (8-23); Calcium 9.4 mg/Dl (8.8-10.2); Carbon Dioxide 25 mmol/L (22-29); Chloride 106 mmol/L (98-107); Glomerular Filtration Rate 74.8 mL/min (90-130); Glucose 147 mg/dL (74-106); Magnesium 1.8 mg/dL (1.7-2.3); Potassium 3.8 mmol/L (3.5-5.1); Sodium 140 mmol/L (136-145)
[2019-11-01] MEDS: metoprolol succinate ER (24 HR) 50 mg Tablet 75 MG PO (09:04)
[2019-11-01] MEDS: sucralfate 1 gm/10 mL Oral Liq UDC PO ×2 (09:06→21:04)
[2019-11-01] MEDS: oxyCODONE 5 mg IR Tab/Cap PO (09:08)
--- NOTE | 2019-11-01 09:18 | P.PN_ITS ---
Subjective Subjective: Interval history: Patient is now experiencing severe nausea. He has refused meals and most of his p.o. medications this morning. States that pain is 10 out of 10. Plan to be taken back to the OR today afternoon. Hemoglobin stable 8.8. Creatinine improving at 1 today. Blood pressure systolic between 1 30-1 70s. Tachycardia around 100/min. Regular sinus tachycardia. Stool H. pylori testing negative. Remains afebrile Medications: Reviewed: Yes Vitals/I&O/Wt Last Vital Signs Temp 98.8 F 11/01/19 06:00 Pulse 100 11/01/19 08:27 Resp 20 H 11/01/19 09:08 BP 159/101 11/01/19 06:00 Pulse Ox 95 11/01/19 09:08 10/31/19 11/01/19 11/01/19 22:59 06:59 14:59 Intake Total 777 / 1548.583 857.5 / 2406.083 83.667 / 83.667 Output Total 400 / 700 Balance 377 / 848.583 857.5 / 1706.083 83.667 / 83.667 Weight last 48 hrs Weight 110.903 kg Weight 111.085 kg Physical Exam Narrative: EXAM NARRATIVE: Gen: awake, alert and oriented CVS: S1S2 N RS: Bilateral basilar rails present coughing present abd: Wound not open for examination today. Const: COMMON NORMALS: oriented x3 and alert Resp: COMMON NORMALS: normal respiratory effort, no retractions and no use of accessory muscles EFFORT & INSPECTION: Yes able to speak in complete sentences OTHER: mild B/L rales Cardio: COMMON NORMALS: regular rate (tachycardia), regular rhythm, S1 normal heart sound, S2 normal heart sound, no gallops, no murmurs, no rub and peripheral pulses 2+ throughout RATE: regular rate (tachycardia) RHYTHM: regular rhythm HEART SOUNDS: S1 normal and S2 normal PERIPHERAL PULSES: pulses 2+ throughout GI: OTHER: Neuro: COMMON NORMALS: oriented x3, CN's II-XII intact bilaterally, moves all extremities and no focal motor deficits SENSORIUM/ORIENTATION: Yes alert Psych: COMMON NORMALS: mental status grossly normal and affect normal A&P Assessment and plan (1) Perforated gastric ulcer: For perforated gastric ulcer patient is currently postop day 9. UGI series with no leaks. Started on po meds and diet has been advanced. However he is unable to tolerate since last night. Worsening wound dehiscence likely due to mechanical stress from coughing, abdominal fascia weakness from smoking, steroids. Also concern for postop wound infection. Superficial wound culture with Klebsiella pneumonia and VRE. Currently on Zosyn and linezolid for the same unclear if this represents colonization after recent surgery vs true pathogen. Systolic blood pressure trending up again. Given that kidney function is now improving we will resume lisinopril but at a lower dose of 10 mg every day. Holding off on further Lasix for now. He is on minimal KVO fluids. Metoprolol to continue. Hydralazine as needed for blood pressure control if needed. MIKEY had resolved but then again at 1.4, likely is a combination of receiving Lasix and vancomycin. We will hold off on any further Lasix today and to minimize further worsening of renal function. Lisinopril 10 being resumed today now that creatinine trended down to 1 DVT now detected again on LE Doppler. A VQ scan for PE was negative. Patient already has an IVC filter in place as detected on x-rays. continue DVT prophylaxis with heparin. Not a candidate for full dose anticoagulation given recent surgeries Hemoglobin creep down to 8.8 however is currently holding steady. We will keep threshold for transfusion at 8 as again 7 given that patient also has sinus tachycardia and may benefit from transfusion Patient reports inadequate pain control since switching medications to fentanyl patch and oxycodone IR. He also has significant nausea now. Will take off the fentanyl patch and resume fentanyl PRN now and adjust other pain medications. Incentive spirometry Wound care per surgical team. Plan to go back to the OR today. Encourage PT OT and ambulation Bronchitis continue [id number] nebulizations with DuoNeb's and budesonide We will plan for discharge to SNF as given multiple comorbidities and deconditioning in the hospital he is not likely a candidate for safe discharge to home.. Status: Acute Code(s): K25.5 - Chronic or unspecified gastric ulcer with perforation (2) Surgical site infection: Superficial swab cx with VRE fecium and GNR pending identification Status: Acute Code(s): T81.49XA - Infection following a procedure, other surgical site, initial encounter (3) Sinus tachycardia: resume po metoprolol Status: Acute Code(s): R00.0 - Tachycardia, unspecified (4) Hypertension: resume po lisinopril Status: Acute Code(s): I10 - Essential (primary) hypertension Attestations Medical Necessity Statement*: Sergey admitted to the ICU for close monitoring of postop wound dehiscence and multiple medical comorbidities. Coding Level of Care Code Acute Picture Copyist for [facility] Fwd Diagnoses Perforated gastric ulcer K25.5 Surgical site infection T81.49XA Sinus tachycardia R00.0 Hypertension I10
--- NOTE | 2019-11-01 09:46 | PM.PN ---
Subjective Subjective: Interval history: Overall patient is about the same No acute events overnight except for worsening dehiscence of the fascia on my evening rounds yesterday, that would require surgical intervention in the form of abdominal washout and placement of biologic mesh with possible VAC placement, a biologic mesh was requested overnight to come in for today's procedure from [facility]. Medications: Reviewed: Yes Vitals/I&O/Wt Last Vital Signs Temp 98.8 F 11/01/19 06:00 Pulse 100 11/01/19 08:27 Resp 20 H 11/01/19 09:08 BP 159/101 11/01/19 06:00 Pulse Ox 95 11/01/19 09:08 10/31/19 11/01/19 11/01/19 22:59 06:59 14:59 Intake Total 777 / 1548.583 857.5 / 2406.083 83.667 / 83.667 Output Total 400 / 700 Balance 377 / 848.583 857.5 / 1706.083 83.667 / 83.667 Weight last 48 hrs Weight 244 lb 8 oz Weight 244 lb 14.4 oz Physical Exam Const: COMMON NORMALS: no apparent distress, oriented x3 and alert EXAM LIMITATIONS: no altered mental status GENERAL APPEARANCE: cooperative ORIENTATION/CONSCIOUSNESS: Yes awake, Yes oriented to person, Yes oriented to place and Yes oriented to time Eye: COMMON NORMALS: PERRL and no scleral icterus PUPIL: Yes PERRL Chest: COMMONS NORMALS: inspection of chest normal Resp: COMMON NORMALS: normal respiratory effort GI: COMMON NORMALS: soft to palpation; negative for non-tender and negative for no hepatosplenomegaly INSPECTION: Yes normal to inspection AUSCULTATION: Yes normoactive bowel sounds PALPATION: Yes soft, No firm, No tender, No guarding, No rigid, No no hepatosplenomegaly, Yes hernia (Patient does have fascial dehiscence), Yes ascites present, No rebound tenderness present and Yes other (Right upper quadrant drain in place with serosanguinous output) Neuro: COMMON NORMALS: oriented x3 SENSORIUM/ORIENTATION: Yes alert, Yes oriented to person, Yes oriented to place and Yes oriented to time Skin: COMMON NORMALS: no mottling GENERAL SKIN EXAM: other (No evidence of evisceration/ no fecal odor) LESIONS: other (patient does have controlled fascial dehiscence stable otherwise) WOUNDS: Yes wounds noted (Dressing stable) WOUNDS: Yes wounds noted (Dressing stable) A&P Assessment and plan (1) Perforated gastric ulcer: This is a 64 years old gentleman status post repair of perforated gastric ulcer postoperative patient had surgery 10/22/2019 Patient developed superficial surgical site infection, followed by fascial dehiscence required surgical intervention October 28, 2019, undergone surgical debridement of the fascia and subcutaneous layer followed by interrupted closure of the fascia and a wound VAC application. Plan: PLAN OF CARE: CVS: Continue continuous cardiac monitoring, tachycardia and hypertension requires medical management will defer to hospitalist service,better controlled at present Anemia stable H&H PULMONARY: Continue weaning from oxygen Continue Aggressive pulmonary toilet Continue Incentive spirometer every hour Lasix IV when necessary GI: N.p.o. for now NUTRITION: Resume after surgery RENAL: Continue monitoring kidney functions Strict I's and O's Continue electrolyte protocols for replacement including calcium potassium and magnesium INFECTIOUS DISEASE: We will coordinate with hospital service with regard antimicrobial therapy NEUROLOGY: No evidence of neurological deficit GCS 15 out of 15 MOBILITY:continue physical therapy Patient will benefit strongly from acute rehabilitation SKIN AND WOUND: Surgery today Continue drain care serous output. Pain control: Highly recommend to have pain controlled with transdermal patches and p.o. pain medications and DC IV pain meds We will continue coordinating with hospitalist service Assurance and education Continue encouragement Medical necessity care is expected to cross 2 midnights Status: Acute Code(s): K25.5 - Chronic or unspecified gastric ulcer with perforation (2) Surgical site infection: Antimicrobial therapy Status: Acute Code(s): T81.49XA - Infection following a procedure, other surgical site, initial encounter (3) Dehiscence of closure of fascia, superficial or muscular: Planning today for surgical debridement and application of biologic mesh followed by POSSIBLE wound VAC application Optimize nutrition Most likely patient will develop ventral incisional hernia down the road due to highly attenuated fascia component, I did discuss with the patient about that, as our main focus now to have him heal well with appropriate rehabilitation and then we can address his potential hernia down the road on elective basis. We will continue abdominal binder for extra support Status: Acute Code(s): T81.32XA - Disruption of internal operation (surgical) wound, not elsewhere classified, initial encounter Attestations Medical Necessity Statement*: Medical necessity care is expected to cross 2 midnights Coding Level of Care Code Acute Seo Expert for Chg Fwd Exam Problem Focused Diagnoses Perforated gastric ulcer K25.5 Surgical site infection T81.49XA Dehiscence of closure of fascia, superficial or muscular T81.32XA
--- NOTE | 2019-11-01 10:15 | XR_ITS ---
WS: [id number] Portable AP upright chest, 11/01/2019 Clinical Data: coughing Comparison: Portable chest, 10/24/2019. Findings: No nodules, masses or effusions are seen. The heart is enlarged.. The pulmonary vascularity is not increased. No pneumonia or pneumothorax is seen. The right PICC line remains in position. Min imal bibasilar atelectasis is seen. There are monitoring leads on the chest wall. XR/XR chest 1V portable [id number] Impression: 1. No change in bibasilar atelectasis. 2. Right PICC line remains in position.
[2019-11-01] MEDS: budesonide 0.5 mg/2 mL Neb INHALATION ×2 (10:23→20:01)
[2019-11-01] MEDS: linezolid premix 600 MG/300 ML PREMIX 300 MG IV ×2 (11:07→22:30)
--- NOTE | 2019-11-01 12:47 | PC.OT ---
OT TREATMENT HELD PER NURSING TODAY DUE TO SURGERY THIS AFTERNOON
--- NOTE | 2019-11-01 14:53 | P.PN_ITS ---
Pre-Anesthetic Assessment Pre-Anesthetic Assessment: Height/Weight: Height Weight 110.903 kg Temp Pulse Resp BP Pulse Ox 98.1 F 91 20 H 163/104 94 11/01/19 10:00 11/01/19 12:00 11/01/19 12:00 11/01/19 12:00 11/01/19 12:00 Proposed Procedure: Operation Date: 10/28/19 17:50 Proposed Procedures p Wound Vac Placement(Not Applicable) - Perry Carroll MD s Incision And Drainage(Not Applicable) - Perry Carroll MD Operation Date: 11/01/19 14:15 Proposed Procedures p ABDOMINAL wound Washout with placment of biologic Mesh(Not Applicable) - Perry Carroll MD s Wound Vac Placement(Not Applicable) - Perry Carroll MD Social: Social History: Alcohol and Tobacco Exam: Pre-Anes Outpt Exam: alert and oriented x 3 Airway: Submandibular: WNL Cervical ROM: WNL Dentition: False History/ROS: No significant history except as noted Pulmonary: Pulmonary: Asthma CV/HEM: CV/HEM: Arrythmia and HTN GI: GI: GERD and PUD Anesthetic Plan: ASA status: IV Anesthesia: Anesthesia Evaluation and General Risk of > 500 ml blood loss (7ml/kg in children): No Meds/Allergies Current Medications: Current Medications Generic Name Dose Route Start Last Admin Trade Name Freq PRN Reason Stop Dose Admin Acetaminophen 650 mg 10/30/19 17:13 10/31/19 23:35 Tylenol PO 650 mg Q6H PRN Administration MILD PAIN Albuterol Sulfate 2.5 mg 10/26/19 03:00 11/01/19 11:49 Albuterol INHALATION 2.5 mg Q4H.RESPIRATORY S CH Administration Alprazolam 0.25 mg 10/30/19 09:24 10/31/19 19:27 Xanax PO 0.25 mg TID PRN Administration ANXIETY Budesonide 0.5 mg 10/26/19 08:00 11/01/19 10:23 Pulmicort INHALATION 0.5 mg BID.RESPIRATORY S CH Administration Denture Adhesive 1 applic 10/26/19 01:51 10/26/19 17:30 Fixodent DENTAL 1 cream PRN PRN Administration denture adhesive Heparin Sodium (Be ef Lung) 5,000 unit 10/26/19 13:00 11/01/19 06:11 Heparin SUBCUT Not Given Q12H LINDA Hydralazine HCl 5 mg 10/30/19 09:30 10/31/19 22:32 Apresoline IVP 5 mg Q6H PRN Administration SBP >160 Piperacillin Sod/T azobactam 50 mls @ 12.5 mls /hr 10/26/19 03:30 11/01/19 12:21 Sod 3.375 gm/ So dium Chloride IV 12.5 mls/hr Q8H LINDA Administration Sodium Chloride 1,000 mls @ 30 ml s/hr 10/26/19 00:00 10/31/19 23:35 Sodium Chloride 0.9% IV 30 mls/hr .Q24H LINDA Administration Pantoprazole Sodiu m 40 mg/ 100 mls @ 20 mls/ hr 10/29/19 18:15 11/01/19 14:27 Sodium Chloride IV 8 mg/hr .Q5H LINDA 20 mls/hr Administration 8 MG/HR Linezolid 600 mg in 300 mls @ 300 mls/hr 11/01/19 11:00 11/01/19 12:07 Zyvox Premix IV Infused Q12H LINDA Infusion Lanolin 1 applic 10/26/19 02:11 10/29/19 18:08 Lanolin Oint TOPICAL 1 tube PRN PRN Administration DRY LIPS Metoprolol Succina te 75 mg 11/01/19 09:00 11/01/19 09:04 Toprol Xl PO 75 mg DAILY LINDA Administration Ondansetron HCl 4 mg 10/29/19 05:46 11/01/19 08:53 Zofran IVP 4 mg Q6H PRN Administration NAUSEA AND VOMITI NG Sucralfate 1 gm 10/29/19 15:00 11/01/19 09:06 Carafate Oral Li q PO 1 gm Q6H LINDA Administration PFSH Anesthesia PFSH: Medical History (Updated 10/29/19 @ 08:26 by Perry Carroll MD) Asthma (Acute) Deep vein thrombophlebitis of leg (Acute) Dehiscence of closure of fascia, superficial or muscular (Acute) Hepatitis C (Acute) History of adenocarcinoma of prostate (Acute) Hypertension (Acute) Morbid obesity (Acute) Osteoarthritis (Acute) Perforated gastric ulcer (Acute) Sinus tachycardia (Acute) Surgical site infection (Acute) Surgical History (Updated 10/28/19 @ 17:37 by Siddharth Reagan MD) Hx of total knee arthroplasty (Acute) Social History (Updated 10/25/19 @ 20:03 by Stefania De La Rosa) Smoking and tobacco status: never smoked Alcohol intake: never Substance/Drug Use: never Data Anesthesia Labs: Other Labs: Laboratory Results - last 48 hr 10/28/19 10/31/19 10/31/19 12:00 04:45 04:45 WBC 8.1 RBC 2.92 L Hgb 8.7 L Hct 27.6 L MCV 94.5 H MCH 29.8 MCHC 31.5 RDW 15.5 H Plt Count 184 MPV 10.5 H Neut % (Auto) 82.7 Lymph % (Auto) 9.9 O'Brien % (Auto) 5.5 Eos % (Auto) 1.2 Baso % (Auto) 0.2 Neut # (Auto) 6.7 Lymph # (Auto) 0.8 O'Brien # (Auto) 0.4 Eos # (Auto) 0.1 Baso # (Auto) 0.0 Nucleated RBC % (a uto) 0 Nucleated RBCs # 0.0 Sodium 142 Potassium 3.1 L Chloride 104 Carbon Dioxide 25 Anion Gap 16.1 BUN 23 Creatinine 1.3 H GFR Calculation 55.2 L Glucose 119 H Calcium 9.3 Magnesium Total Bilirubin 0.5 AST 14 ALT 9 Alkaline Phosphata se 54 Total Protein 6.5 L Albumin 3.8 Globulin 2.7 Stool H. pylori Ag See note 11/01/19 11/01/19 04:20 04:20 WBC 7.7 RBC 2.96 L Hgb 8.8 L Hct 28.1 L MCV 94.9 H MCH 29.7 MCHC 31.3 RDW 15.5 H Plt Count 224 MPV 9.9 Neut % (Auto) 85.0 Lymph % (Auto) 8.3 O'Brien % (Auto) 4.7 Eos % (Auto) 1.2 Baso % (Auto) 0.3 Neut # (Auto) 6.6 Lymph # (Auto) 0.6 L O'Brien # (Auto) 0.4 Eos # (Auto) 0.1 Baso # (Auto) 0.0 Nucleated RBC % (a uto) 0 Nucleated RBCs # 0.0 Sodium 140 Potassium 3.8 Chloride 106 Carbon Dioxide 25 Anion Gap 12.8 BUN 15 Creatinine 1.0 GFR Calculation 74.8 L Glucose 147 H Calcium 9.4 Magnesium 1.8 Total Bilirubin AST ALT Alkaline Phosphata se Total Protein Albumin Globulin Stool H. pylori Ag Cardiac Studies: No Data to Display
--- NOTE | 2019-11-01 15:19 | PC.NURSE ---
pt to OR at this time. Pt sister Malina called and notified of surgery.
[2019-11-01] MEDS: sodium chloride 0.9% 1,000 ML 100 ML IV (15:36)
--- NOTE | 2019-11-01 16:31 | PC.CHAP ---
Pastoral Care Encounter/Spiritual Assessment Type of Contact [] Declined drug department worker visit [] Patient/Family/Request visit [] Outpatient visit [] Follow-up visit [] Physician referral [] Code/Alert [x] Routine visit [] Staff referral [] Actively dying [x] Patient sleeping [] Family support [] [] Out of room [] Palliative care [] [] Receiving care in room [] Pre-surgical visit [] Trauma [] Long length of stay [] ICU visit [] Other: Relational/Emotional Strength [] Patient feels connected with others/family/visitors/staff [] Distress [] Loneliness/isolation [] Abandonment Spirituality of Patient [] Person of Wendy [] Attends Church of their Wendy [] Believes in Prayer [] Reads Bible or Alevism materials [] There are Spiritual issues to be addressed Group Account Director Interventions [x] Prayer [] Active listening [] Non-anxious presence [x] Spiritual/emotional support [] Crisis/trauma care [] Spiritual counseling [] Bereavement support [] Provided bereavement packet [] Provided Bible/devotional materials [] Provided toy/stuffed animal, coloring book to patient or family member [] Completed spiritual assessment [] Provided Communion [x] Anointing/[place] [] Salvation [] Other: Impact on Illness or Injury [] Angry [] Fearful [] Anxious [] Often cries [] Exhaustion [] Unable to work [] Unable to attend shinto [] Unable to walk/stand [] Unable to read [] Unable to drive [] Unable to eat/drink [] Unable to sleep [] Unable to be with family [] Other: Summary two minutes prayer with nurse and for patient Time spent with patient two minutes
--- NOTE | 2019-11-01 16:47 | P.OP_ITS ---
Operative Report Post-Operative Note: Date of procedure: 11/02/19 Preop Diagnosis: Facial dehiscence Post-op diagnosis: other (Minor leak noticed at the upper abdomen/Amalgamated bowel) Procedure Done: Debridement of anterior abdominal wall wound and placement of biologic MESH XENMATRIX 10X28 CM, trimmed to the need for the wound measurement which measured 16 x [address] to the abdominal cavity. Wound VAC application black foam applied on top of Adaptic Implants: XENMATRIX Specimens removed/disposition: Tissues for cultures and sensitivity Pathology: other (Tissues for cultures and sensitivity) Surgeon: Perry Carroll Political Scientist: Kourtney White Anesthesia: general and other (search marketing analyst Real) Estimated blood loss (mL): 10 Complications: No immediate complications Condition: stable Disposition: ICU Operative Report: Brief History: Brief History: This is a pleasant 64 years old gentleman morbidly obese with multiple medical comorbidities, presented to the emergency department with perforated gastric ulcer on October 22, 2019 that required urgent surgical intervention for repair of the ulcer, attempted laparoscopic approach yet converted to open due to the extensive intra-abdominal adhesions, patient did well with that regard and an upper GI study was done showed no leak, yet the patient unfortunately developed superficial surgical site infection in addition to the repeated coughing due to his chronic COPD developed fascial dehiscence that required surgical intervention. Patient undergone surgical debridement and trial of closure of the fascia on October 28, 2019, followed by a second fascial dehiscence that required to take the patient back for surgery, but this time I did request the presence of biologic mesh damage control. Informed consent per Procedure: Procedure: After identifying the patient in the ICU,patient was then taken to the operative suite,was placed in supine position, patient was already on IV antibiotics,IV propofol was infused by the anesthesia provider followed by endotracheal intubation, packing was removed by me in the OR then prep and drape of the abdomen was done under the usual sterile technique. Timeout was done verifying the patient's name date of planned procedure and destination after the procedure, all were in agreement I noticed some bubbling at the upper part of the wound yet was coming from further deep but without any evidence of enteric content in the surgical field, at this point I elected to place an additional 19 Togolese round Chucho drain at that site as a prophylactic approach, being the fact that the patient's bowels were Amalgamated and considered to be no man's land if potentially the gastric perforation have leaked again,the other concern was these bubles are coming from the underlying previously placed drain and there is no actual leak. Started by excising the unhealthy necrotic indurated tissues of the wound, including retained sutures of PDS and, sharp debridement took place all the way to the fascial layer, viable bowel covered by omentum in place.Tissues were sent for cultures and sensitivity. The drain was brought out from the right side of the abdomen and was secured to the skin by 2-0 nylon Gentle manipulation of the viscera was done, that was already in place not eviscerated, followed by thorough irrigation using warm saline using Pulsavac [id number]. Followed by that under direct visualization I was able to apply biologic mesh XENMATRIX 10X28 CM IN THE PRESENCE OF THE REP, I had to cut it to size it appropriately to the wound. Pre-debridement measurements 16 x 6 x 4.5 cm Post debridement measurements 16 x 6 x [address] to the intraperitoneal cavity. Under direct visualization I was able to place the mesh and sutured it to the skin there was no fascia available to suture the mesh to it, I did use Prolene sutures maintain the mesh in place, followed by 2 pieces of Adaptic's and black foam as the wound VAC was applied by me thereafter, pressure was placed at continuous suction 125 mm Hg. Patient tolerated the procedure well, count of instruments, needles and sponges were completed at the end of the procedure.Patient was then extubated and then transferred directly to the ICU. I was present for the whole entire procedure Coding Level of Care Code Acute Boring Machine Operator Horizontal for Vinita Louise
[2019-11-01] MEDS: HYDROmorphone 1 mg/mL INJ 1 mL IVP (17:25)
[2019-11-01] MEDS: heparin 5,000 unit/mL INJ 1 mL 5000 UNIT SUBCUT (18:43)
[2019-11-02] VITALS (21 sets, daily range): BP systolic 109–167; BP diastolic 78–106; PULSE 93–122; RESP 17–34; TEMP 36.8–37.2; O2SAT 92–117
[2019-11-02] MEDS: pantoprazole 40 MG in sodium chloride 0.9% (plus) 100 ML 20 MG IV ×5 (00:01→21:26)
[2019-11-02] MEDS: HYDROmorphone 1 mg/mL INJ 1 mL IVP ×4 (01:54→21:32)
[2019-11-02] MEDS: piperacillin-tazobactam 3.375 GM in sodium chloride 0.9% (plus) 50 ML IV ×3 (03:09→22:14)
[2019-11-02] MEDS: sucralfate 1 gm/10 mL Oral Liq UDC PO ×2 (03:10→15:10)
[2019-11-02 03:48] LABS: Alanine Aminotransferase 8 U/L (0-41); Albumin Level 3.3 g/dL (3.5-5.2); Alkaline Phosphatase 53 IU/L (40-130); Anion Gap 14.7 (5-19); Aspartate Amino Transferase 12 U/L (0-40); Blood Urea Nitrogen 13 mg/dL (8-23); Carbon Dioxide 26 mmol/L (22-29); Chloride 103 mmol/L (98-107); Globulin 2.8 g/dL (1.3-4.6); Glucose 118 mg/dL (74-106); Potassium 3.7 mmol/L (3.5-5.1); Sodium 140 mmol/L (136-145); Total Bilirubin 0.5 mg/dL (0.15-1.2); Total Protein 6.1 g/dL (6.6-8.7)
[2019-11-02 04:04] LABS: Basophils % 0.2 %; Eosinophils # 0.1 10^3/uL (0.0-0.8); Eosinophils % 1.1 %; Hemoglobin 9.1 g/dL (11.7-16.6); Lymphocytes # 0.9 10^3/uL (0.8-4.8); Lymphocytes % 10.4 %; Mean Corpuscular HGB Conc 31.4 g/dL (30.0-36.0); Mean Corpuscular Hemoglobin 30.4 pg (28.0-34.0); Mean Platelet Volume 10.3 fL (7.4-10.4); Monocytes # 0.5 10^3/uL (0.2-0.9); Monocytes % 5.4 %; Neutrophils # 6.8 10^3/uL (1.8-7.7); Neutrophils % 82.5 %; Nucleated Red Blood Cells % 0 %; Platelet Count 244 10^3/cmm (130-400); Red Blood Count 2.99 10^6/uL (4.1-5.3); Red Cell Distribution Width 15.6 % (12.1-15.1); White Blood Count 8.3 10^3/uL (4.0-10.0)
[2019-11-02] MEDS: heparin 5,000 unit/mL INJ 1 mL 5000 UNIT SUBCUT ×2 (05:15→17:20)
--- NOTE | 2019-11-02 06:31 | P.PN_ITS ---
Subjective Subjective: Interval history: Patient overall feels better No Acute events overnight Medications: Reviewed: Yes Vitals/I&O/Wt Last Vital Signs Temp 98.9 F 11/02/19 06:00 Pulse 99 11/02/19 06:00 Resp 20 H 11/02/19 06:00 BP 109/78 11/02/19 06:00 Pulse Ox 97 11/02/19 06:00 11/01/19 11/01/19 11/02/19 14:59 22:59 06:59 Intake Total 533.667 / 533.667 690 / 1223.667 486.333 / 1710.000 Output Total 400 / 400 400 / 800 Balance 133.667 / 133.667 290 / 423.667 486.333 / 910.000 Weight last 48 hrs Weight 244 lb 6 oz Weight 244 lb 8 oz Physical Exam Const: COMMON NORMALS: no apparent distress, oriented x3 and alert EXAM LIMITATIONS: no altered mental status GENERAL APPEARANCE: cooperative ORIENTATION/CONSCIOUSNESS: Yes awake, Yes oriented to person, Yes oriented to place and Yes oriented to time Eye: COMMON NORMALS: PERRL and no scleral icterus PUPIL: Yes PERRL Chest: COMMONS NORMALS: inspection of chest normal Resp: COMMON NORMALS: normal respiratory effort AUSCULTATION: no rales and no rhonchi Cardio: COMMON NORMALS: S1 normal heart sound and S2 normal heart sound; negative for no murmurs HEART SOUNDS: S1 normal and S2 normal GI: COMMON NORMALS: soft to palpation; negative for non-tender and negative for no hepatosplenomegaly INSPECTION: Yes normal to inspection AUSCULTATION: Yes normoactive bowel sounds PALPATION: Yes soft, No firm, No tender, No guarding, No rigid, No no hepatosplenomegaly, Yes hernia (Patient does have fascial dehiscence), No rebound tenderness present and Yes other (Right upper quadrant drains in place with serosanguinous output) PERCUSSION: other (Wound VAC in place without complications) GI image (male): 1. Wound VAC in place 2. Drain placed in index surgery 3. Drain placed November 01 2019 Neuro: COMMON NORMALS: oriented x3 SENSORIUM/ORIENTATION: Yes alert, Yes oriented to person, Yes oriented to place and Yes oriented to time Skin: COMMON NORMALS: no mottling GENERAL SKIN EXAM: other (No evidence of evisceration/ no fecal odor) LESIONS: other (patient does have controlled fascial dehiscence stable otherwise) WOUNDS: Yes wounds noted (Dressing stable) WOUNDS: Yes wounds noted (Dressing stable) A&P Assessment and plan (1) Perforated gastric ulcer: This is a 64 years old gentleman status post repair of perforated gastric ulcer postoperative patient had surgery 10/22/2019 Patient developed superficial surgical site infection, followed by fascial dehiscence required surgical intervention October 28, 2019, undergone surgical debridement of the fascia and subcutaneous layer followed by interrupted closure of the fascia and a wound VAC application. Followed by fascial dehiscence and had a third trip to the OR November 01, 2019 and further debridement and placement of biologic mesh and wound VAC was done Plan: PLAN OF CARE: CVS: Continue continuous cardiac monitoring, tachycardia and hypertension requires medical management will defer to hospitalist service,better controlled at present Anemia stable H&H PULMONARY: Continue weaning from oxygen Continue Aggressive pulmonary toilet Continue Incentive spirometer every hour Lasix IV when necessary GI: N.p.o. for now till upper GI study is cleared if negative will start feeding the patient again NUTRITION: Resume after upper GI study. Meanwhile will continue the TPN bag till the upper GI study is done RENAL: Continue monitoring kidney functions Strict I's and O's Continue electrolyte protocols for replacement including calcium potassium and magnesium INFECTIOUS DISEASE: We will coordinate with hospital service with regard antimicrobial therapy NEUROLOGY: No evidence of neurological deficit GCS 15 out of 15 MOBILITY:continue physical therapy Patient will benefit strongly from inferior to higher acuity facility to continue wound care and further management. SKIN AND WOUND: Surgery today Continue drain care serous output. Pain control: Highly recommend to have pain controlled with transdermal patches and p.o. pain medications and DC IV pain meds We will continue coordinating with hospitalist service Assurance and education Continue encouragement Medical necessity care is expected to cross 2 midnights Status: Acute Code(s): K25.5 - Chronic or unspecified gastric ulcer with perforation (2) Surgical site infection: Antimicrobial therapy Status: Acute Code(s): T81.49XA - Infection following a procedure, other surgical site, initial encounter (3) Dehiscence of closure of fascia, superficial or muscular: Wound VAC therapy Optimize nutrition Status: Acute Code(s): T81.32XA - Disruption of internal operation (surgical) wound, not elsewhere classified, initial encounter Attestations Medical Necessity Statement*: Medical necessity care is expected to cross 2 midnights Coding Level of Care Code Acute Battery Stacker for Chg Fwd Exam Problem Focused Diagnoses Perforated gastric ulcer K25.5 Surgical site infection T81.49XA Dehiscence of closure of fascia, superficial or muscular T81.32XA
--- NOTE | 2019-11-02 06:36 | FL_ITS ---
WS: [id number] UPPER GI TECHNICAL: Gastrografin upper GI FLUOROSCOPY TIME: minutes CLINICAL INFORMATION: concern for leak s/p open repair of gastric ulcer COMPARISON: None. FINDINGS: Status post gastric ulcer repair. Contrast within the stomach and proximal duodenum. No evidence of l eak. IVC filter. Surgical drain right upper quadrant. FL/FL upper GI gastrografin [id number] IMPRESSION: Status post gastric ulcer repair with no evidence of leak. Normal filling of th e distal stomach and proximal duodenum.
--- NOTE | 2019-11-02 08:17 | ECG_ITS ---
Measurements Intervals [place] Rate: 114 P: [place]: 0 QRS: 4 QRSD: 87 T: 14 QT: 317 QTc: 438 Sinus tachycardia with frequent PACs POSSIBLE ANTERIOR MYOCARDIAL INFARCTION [30 ms Q WAVE IN V3/V4, OR R < 0.2 mV IN V4], PROBABLY OLD ABNORMAL RHYTHM ECG Compared to ECG 10/27/2019 09:50:06 Myocardial infarct finding now present Electronically Signed On 11-02-2019 15:40:55 TELEVISION PARTS TESTER by Chris Bloom M.D. [email or web address]
[2019-11-02] MEDS: diatrizoate meglumine 120 mL Sol 60 ML PO (08:48)
[2019-11-02] MEDS: linezolid premix 600 MG/300 ML PREMIX 300 MG IV ×2 (11:30→22:15)
--- NOTE | 2019-11-02 11:45 | PC.SOCIAL ---
IMM Updated Page 2 of IMM updated and given to patient. Initialed, dated, and timed and placed back in chart.
--- NOTE | 2019-11-02 15:03 | PC.CHAP ---
Pastoral Care Encounter/Spiritual Assessment Type of Contact [] Declined catcher helper visit [] Patient/Family/Request visit [] Outpatient visit [] Follow-up visit [] Physician referral [] Code/Alert [] Routine visit [] Staff referral [] Actively dying [] Patient sleeping [] Family support [] [] Out of room [] Palliative care [] [] Receiving care in room [] Pre-surgical visit [] Trauma [] Long length of stay [x] ICU visit [] Other: Relational/Emotional Strength [] Patient feels connected with others/family/visitors/staff [] Distress [] Loneliness/isolation [] Abandonment Spirituality of Patient [] Person of Wendy [] Attends Latter Day of their Wendy [] Believes in Prayer [] Reads Bible or Hoahaoism materials [] There are Spiritual issues to be addressed Service Counter Cashier Interventions [] Prayer [] Active listening [] Non-anxious presence [] Spiritual/emotional support [] Crisis/trauma care [] Spiritual counseling [] Bereavement support [] Provided bereavement packet [] Provided Bible/devotional materials [] Provided toy/stuffed animal, coloring book to patient or family member [] Completed spiritual assessment [] Provided Communion [] Anointing/[place] [] Salvation [] Other: Impact on Illness or Injury [] Angry [] Fearful [] Anxious [] Often cries [] Exhaustion [] Unable to work [] Unable to attend sikh [] Unable to walk/stand [] Unable to read [] Unable to drive [] Unable to eat/drink [] Unable to sleep [] Unable to be with family [] Other: Summary The patient was in isolation. Service Counter Cashier prayed for patient outside the patients door. Time spent with patient 4 min
[2019-11-02] MEDS: budesonide 0.5 mg/2 mL Neb INHALATION (20:36)
--- NOTE | 2019-11-02 22:45 | P.PN_ITS ---
Subjective Subjective: Interval history: Patient continues, but tolerable. This am seen while undergoing dressing change, biologic mesh placed, top left corner with dehisence of mesh. Tolerating well p.o. intake Medications: Reviewed: Yes Vitals/I&O/Wt Last Vital Signs Temp 98.2 F 11/02/19 20:00 Pulse 106 H 11/02/19 20:42 Resp 22 H 11/02/19 21:32 BP 157/106 11/02/19 20:00 Pulse Ox 98 11/02/19 21:32 11/02/19 11/02/19 11/02/19 06:59 14:59 22:59 Intake Total 486.333 / 1710.000 537.333 / 537.333 290 / 827.333 Output Total 290 / 1090 300 / 300 95 / 395 Balance 196.333 / 620.000 237.333 / 237.333 195 / 432.333 Weight last 48 hrs Weight 110.847 kg Weight 110.903 kg Physical Exam Narrative: EXAM NARRATIVE: Gen: awake, alert and oriented CVS: S1S2 N RS: Bilateral basilar rails present coughing present abd: Wound vac removed, biologic mesh seen underneath with dehiscenece at top left corner Const: COMMON NORMALS: oriented x3 and alert Resp: COMMON NORMALS: normal respiratory effort, no retractions and no use of accessory muscles EFFORT & INSPECTION: Yes able to speak in complete sentences OTHER: mild B/L rales Cardio: COMMON NORMALS: regular rate (tachycardia), regular rhythm, S1 normal heart sound, S2 normal heart sound, no gallops, no murmurs, no rub and peripheral pulses 2+ throughout RATE: regular rate (tachycardia) RHYTHM: regular rhythm HEART SOUNDS: S1 normal and S2 normal PERIPHERAL PULSES: pulses 2+ throughout GI: OTHER: Neuro: COMMON NORMALS: oriented x3, CN's II-XII intact bilaterally, moves all extremities and no focal motor deficits SENSORIUM/ORIENTATION: Yes alert Psych: COMMON NORMALS: mental status grossly normal and affect normal Data Micro: Micro: Microbiology 11/01/19 16:18 Gram Stain - Final Abdomen A&P Assessment and plan (1) Surgical site infection: Superficial swab cx with VRE fecium and Klebsiella pneumonaie Superficial swab cx with VRE fecium and Klebsiella pneumonaie Status: Acute Code(s): T81.49XA - Infection following a procedure, other surgical site, initial encounter (2) Sinus tachycardia: Status: Acute Code(s): R00.0 - Tachycardia, unspecified (3) Hypertension: resume po lisinopril resume po lisinopril Status: Acute Code(s): I10 - Essential (primary) hypertension Additional A&P Information Additional A&P Information: Perforated gastric ulcer: s/p surgical repair. UGI series x2 with no leaks. Started on po meds and tolerating po meds. However he is unable to tolerate since last night. Worsening wound dehiscence likely due to mechanical stress from coughing, abdominal fascia weakness from smoking, steroids. Also concern for postop wound infection. Superficial wound culture with Klebsiella pneumonia and VRE. Currently on Zosyn and linezolid for the same unclear if this represents colonization after recent surgery vs true pathogen. Biological mesh now placed with wound vac overlying. Wound vac with top left corner with dehiscence. Blood pressure and HR better controlled now. MIKEY resolved DVT detected again on LE Doppler. A VQ scan for PE was negative. Patient already has an IVC filter in place as detected on x-rays. continue DVT prophylaxis with heparin. Not a candidate for full dose anticoagulation given recent surgeries Hemoglobin currently holding steady. We will keep threshold for transfusion at 8 as again 7 given that patient also has sinus tachycardia and may benefit from transfusion Patient reports inadequate pain control since switching medications to oxycodone IR. Start hydromorphone with prn dilaudid Incentive spirometry Wound care per surgical team. Encourage PT OT and ambulation Bronchitis continue [id number] nebulizations with DuoNeb's and budesonide Awaiting transfer to [facility] for further care per surgical recommendations Attestations Medical Necessity Statement*: for perforated ulcer post op care Time Spent in Patient Care: Greater than 35 minutes Coding Level of Care Code Acute Inspector Automatic Typewriter for [facility] F[facility] Diagnoses Perforated gastric ulcer K25.5 Surgical site infection T81.49XA Sinus tachycardia R00.0 Hypertension I10
[2019-11-03] VITALS (18 sets, daily range): BP systolic 102–151; BP diastolic 58–97; PULSE 83–112; RESP 14–28; TEMP 36.7–36.8; O2SAT 91–97
[2019-11-03] MEDS: HYDROmorphone 1 mg/mL INJ 1 mL IVP ×4 (00:32→23:45)
[2019-11-03] MEDS: pantoprazole 40 MG in sodium chloride 0.9% (plus) 100 ML 20 MG IV ×4 (01:22→21:34)
[2019-11-03 05:30] LABS: Basophils % 0.6 %; Eosinophils # 0.2 10^3/uL (0.0-0.8); Eosinophils % 3.1 %; Hematocrit 26.1 % (42.0-52.0); Hemoglobin 8.1 g/dL (11.7-16.6); Lymphocytes # 0.9 10^3/uL (0.8-4.8); Lymphocytes % 16.9 %; Mean Corpuscular Hemoglobin 29.3 pg (28.0-34.0); Mean Corpuscular Volume 94.6 fL (80-94); Monocytes # 0.4 10^3/uL (0.2-0.9); Monocytes % 7.9 %; Neutrophils # 3.9 10^3/uL (1.8-7.7); Neutrophils % 71.1 %; Nucleated Red Blood Cells % 0 %; Platelet Count 242 10^3/cmm (130-400); Red Blood Count 2.76 10^6/uL (4.1-5.3); Red Cell Distribution Width 15.4 % (12.1-15.1); White Blood Count 5.4 10^3/uL (4.0-10.0)
[2019-11-03] MEDS: heparin 5,000 unit/mL INJ 1 mL 5000 UNIT SUBCUT ×2 (05:31→17:04)
[2019-11-03] MEDS: piperacillin-tazobactam 3.375 GM in sodium chloride 0.9% (plus) 50 ML IV ×3 (05:37→21:31)
[2019-11-03 05:48] LABS: Alanine Aminotransferase 8 U/L (0-41); Albumin Level 3.6 g/dL (3.5-5.2); Alkaline Phosphatase 47 IU/L (40-130); Aspartate Amino Transferase 13 U/L (0-40); Blood Urea Nitrogen 10 mg/dL (8-23); Calcium 8.7 mg/Dl (8.8-10.2); Carbon Dioxide 26 mmol/L (22-29); Chloride 102 mmol/L (98-107); Glomerular Filtration Rate 74.8 mL/min (90-130); Glucose 135 mg/dL (74-106); Sodium 139 mmol/L (136-145); Total Bilirubin 0.4 mg/dL (0.15-1.2); Total Protein 5.6 g/dL (6.6-8.7)
--- NOTE | 2019-11-03 07:33 | PM.PN ---
Subjective Subjective: Interval history: Patient overall feels better No Acute events overnight Tolerating well p.o. intake Upper GI study done yesterday showed no evidence of leak, likely the bubbles witnessed intraoperatively due to the drain #1 that was placed at the index surgery. Medications: Reviewed: Yes Vitals/I&O/Wt Last Vital Signs Temp 98.0 F 11/03/19 06:00 Pulse 112 H 11/03/19 06:00 Resp 14 11/03/19 06:00 BP 139/85 11/03/19 06:00 Pulse Ox 95 11/03/19 06:00 11/02/19 11/03/19 11/03/19 22:59 06:59 14:59 Intake Total 290 / 766.674 2096.167 / 2063.500 Output Total 320 / 620 750 / 1370 35 / 35 Balance -30 / 207.333 486.167 / 693.500 -35 / -35 Weight last 48 hrs Weight 245 lb 7 oz Weight 244 lb 6 oz Physical Exam Const: COMMON NORMALS: no apparent distress, oriented x3 and alert EXAM LIMITATIONS: no altered mental status GENERAL APPEARANCE: cooperative ORIENTATION/CONSCIOUSNESS: Yes awake, Yes oriented to person, Yes oriented to place and Yes oriented to time Eye: COMMON NORMALS: PERRL and no scleral icterus PUPIL: Yes PERRL Chest: COMMONS NORMALS: inspection of chest normal Resp: COMMON NORMALS: normal respiratory effort AUSCULTATION: no rales and no rhonchi Cardio: COMMON NORMALS: S1 normal heart sound and S2 normal heart sound; negative for no murmurs HEART SOUNDS: S1 normal and S2 normal GI: COMMON NORMALS: soft to palpation; negative for non-tender and negative for no hepatosplenomegaly INSPECTION: Yes normal to inspection AUSCULTATION: Yes normoactive bowel sounds PALPATION: Yes soft, No firm, No tender, No guarding, No rigid, No no hepatosplenomegaly, Yes hernia (Patient does have fascial dehiscence yet controlled by overlying biologic mesh), No rebound tenderness present and Yes other (Right upper quadrant drains in place with serosanguinous output) PERCUSSION: other (Wound VAC in place yet the suction is not working efficiently) Neuro: COMMON NORMALS: oriented x3 SENSORIUM/ORIENTATION: Yes alert, Yes oriented to person, Yes oriented to place and Yes oriented to time Skin: COMMON NORMALS: no mottling GENERAL SKIN EXAM: other (No evidence of evisceration/ no fecal odor) LESIONS: other (patient does have controlled fascial dehiscence stable otherwise) WOUNDS: Yes wounds noted (Dressing stable) WOUNDS: Yes wounds noted (Dressing stable) Data Micro: Micro: Microbiology 11/01/19 16:18 Gram Stain - Final Abdomen A&P Assessment and plan (1) Perforated gastric ulcer: This is a 64 years old gentleman status post repair of perforated gastric ulcer postoperative patient had surgery 10/22/2019 Patient developed superficial surgical site infection, followed by fascial dehiscence required surgical intervention October 28, 2019, undergone surgical debridement of the fascia and subcutaneous layer followed by interrupted closure of the fascia and a wound VAC application. Followed by fascial dehiscence and had a third trip to the OR November 01, 2019 and further debridement and placement of biologic mesh and wound VAC was done. Plan: PLAN OF CARE: CVS: Continue continuous cardiac monitoring, tachycardia and hypertension requires medical management will defer to hospitalist service,better controlled at present Anemia stable H&H PULMONARY: Continue weaning from oxygen Continue Aggressive pulmonary toilet Continue Incentive spirometer every hour Lasix IV when necessary GI: Patient continues to have diarrhea we will plan to send for C. difficile NUTRITION: Soft GI diet/protein shakes RENAL: Continue monitoring kidney functions Strict I's and O's Continue electrolyte protocols for replacement including calcium potassium and magnesium INFECTIOUS DISEASE: We will coordinate with hospital service with regard antimicrobial therapy NEUROLOGY: No evidence of neurological deficit GCS 15 out of 15 MOBILITY:continue physical therapy Patient will benefit strongly from inferior to higher acuity facility to continue wound care and further management, particularly if the biologic mesh is not being incorporated and started breaking down with bowel exposure. SKIN AND WOUND: Surgery today Continue drain care serous output. Pain control: Highly recommend to have pain controlled with transdermal patches and p.o. pain medications and DC IV pain meds We will continue coordinating with hospitalist service Assurance and education Continue encouragement Status: Resolved Code(s): K25.5 - Chronic or unspecified gastric ulcer with perforation (2) Surgical site infection: Antimicrobial therapy Status: Acute Code(s): T81.49XA - Infection following a procedure, other surgical site, initial encounter (3) Dehiscence of closure of fascia, superficial or muscular: Wound VAC therapy, will plan to change wound VAC today with application of white and black foam as a bedside procedure. Informed consent per chart Optimize nutrition Status: Resolved Code(s): T81.32XA - Disruption of internal operation (surgical) wound, not elsewhere classified, initial encounter Attestations Medical Necessity Statement*: Medical necessity care is expected to cross 2 midnights Coding Level of Care Code Acute Supervisor Grading for [facility] Fwd Exam Problem Focused Diagnoses Perforated gastric ulcer K25.5 Surgical site infection T81.49XA Dehiscence of closure of fascia, superficial or muscular T81.32XA Time Spent (min) 15
[2019-11-03] MEDS: budesonide 0.5 mg/2 mL Neb INHALATION (07:44)
[2019-11-03] MEDS: oxyCODONE-APAP 5-325 mg Tablet PO ×2 (09:59→15:29)
[2019-11-03] MEDS: ALPRAZolam 0.25 mg Tablet PO (10:01)
[2019-11-03] MEDS: metoprolol succinate ER (24 HR) 50 mg Tablet 75 MG PO (10:01)
[2019-11-03] MEDS: lisinopril 10 mg Tablet PO (10:01)
[2019-11-03] MEDS: linezolid premix 600 MG/300 ML PREMIX 300 MG IV ×2 (12:04→23:05)
--- NOTE | 2019-11-03 12:59 | P.PCN_ITS ---
Procedure/Consent Time out: Time Out Performed: Yes Procedure Narrative: Wound VAC application Pre-procedure diagnosis; abdominal wound dehiscence, patient undergone biologic mesh placement and wound Post-Procedure diagnosis the same, breakdown of the biologic mesh between 9 and 12 o'clock position with bowels and omentum in place Procedure done wound VAC application in the form of white foam followed by black foam Description of the procedure After informed consent to being in the chart and timeout was done The older wound VAC dressing was taken off after suction was discontinued, black foam was removed then Adaptic, underlying wound dehiscence was noticed with a breakdown of the biologic mesh between 9 and 12:00, viable bowel and omentum in place without sinus or fistula formation, reapplication of a fresh white foam covered with a black foam and wound VAC system applied to a pressure of 125mmHg continuous form. Patient tolerated the procedure well I was present for the whole entire procedure Complications: No immediate complications EBL:none Specimens: none Mode of anesthesia: none Surgeon Perry Carroll MD Mentally Impaired Teacher [facility] ICU bedside Acute Procedures Epistaxis Control: Time out performed: Yes
--- NOTE | 2019-11-03 13:07 | PC.NURSE ---
WOUND VAC WOUND VAC ALARMING THAT TUBE IS BLOCKED. REVIEWED MANUAL TO TROUBLESHOOT FOR ALARM. NOTHING WORKED. \INCREASED SEROSANG DRAINAGE AROUND FOAM. DR MENDEZ NOTIFIED & WILL BE OVER TO DO DRESSING CHANGE AT [facility]. ASSISTED WITH DRESSING CHANGE, MESH ON ABDOMINAL INCISION DEHISCENCE NOTED FROM 9-[address] SCHWARTZ ALSO IN ROOM TO VISUALIZE INCISION
--- NOTE | 2019-11-03 13:28 | PM.PO ---
Providers/Reason For Consult Attending Physician: Dyana Salomon MD Primary Care Provider: Sravan Garcia History of Present Illness History of Present Illness Waylon Worthy is a 64 year old male Meds/Allergies Home Medications and Allergies Home Medications Medication Instructions Recorded Confirmed Type cholecalciferol (vitamin D3) 1,000 unit PO DAILY 10/25/19 10/25/19 History [Vitamin D3] doxycycline hyclate 100 mg PO BID 10/25/19 10/25/19 History hydrocodone-acetaminophen 1 tab PO Q6H 10/25/19 10/25/19 History lisinopril 20 mg PO BID 10/25/19 10/25/19 History metoprolol succinate 50 mg PO DAILY 10/25/19 10/25/19 History prednisone 60 mg PO DAILY 10/25/19 10/25/19 History Allergies Allergy/AdvReac Type Severity Reaction Status Date / Time Latex, Natural Rubber Allergy ALGY-Anaphy Verified 10/25/19 12:36 laxis Current Medications Current Medications Generic Name Dose Route Start Last Admin Trade Name Freq PRN Reason Stop Dose Admin Acetaminophen 650 mg 10/30/19 17:13 10/31/19 23:35 Tylenol PO 650 mg Q6H PRN Administration MILD PAIN Albuterol Sulfate 2.5 mg 10/26/19 03:00 11/03/19 11:18 Albuterol INHALATION Not Given Q4H.RESPIRATORY LINDA Alprazolam 0.25 mg 10/30/19 09:24 11/03/19 10:01 Xanax PO 0.25 mg TID PRN Administration ANXIETY Budesonide 0.5 mg 10/26/19 08:00 11/03/19 07:44 Pulmicort INHALATION 0.5 mg BID.RESPIRATORY LINDA Administration Denture Adhesive 1 applic 10/26/19 01:51 10/26/19 17:30 Fixodent DENTAL 1 cream PRN PRN Administration denture adhesive Heparin Sodium (Beef Lung) 5,000 unit 10/26/19 13:00 11/03/19 05:31 Heparin SUBCUT 5,000 unit Q12H LINDA Administration Hydralazine HCl 5 mg 10/30/19 09:30 10/31/19 22:32 Apresoline IVP 5 mg Q6H PRN Administration SBP >160 Hydromorphone HCl 1 mg 11/01/19 09:49 11/03/19 04:01 Dilaudid Inj IVP 1 mg Q4H PRN Administration breakthrough pain Piperacillin Sod/Tazobactam 50 mls @ 12.5 mls/hr 10/26/19 03:30 11/03/19 05:37 Sod 3.375 gm/ Sodium Chloride IV 12.5 mls/hr Q8H LINDA Administration Sodium Chloride 1,000 mls @ 30 mls/hr 10/26/19 00:00 11/03/19 00:11 Sodium Chloride 0.9% IV 30 mls/hr .Q24H LINDA Administration Pantoprazole Sodium 40 mg/ 100 mls @ 20 mls/hr 10/29/19 18:15 11/03/19 05:31 Sodium Chloride IV 8 mg/hr .Q5H LINDA 20 mls/hr Administration 8 MG/HR Linezolid 600 mg in 300 mls @ 300 mls/hr 11/01/19 11:00 11/03/19 12:04 Zyvox Premix IV 300 mls/hr Q12H LINDA Administration Amino Acids/Electrolytes 1,000 mls @ 42 mls/hr 11/02/19 10:00 11/02/19 09:44 Clinimix E 4.25%-10% IV 42 mls/hr .[id number] LINDA Administration Lanolin 1 applic 10/26/19 02:11 10/29/19 18:08 Lanolin Oint TOPICAL 1 tube PRN PRN Administration DRY LIPS Lisinopril 10 mg 11/01/19 11:00 11/03/19 10:01 Prinivil PO 10 mg DAILY LINDA Administration Metoprolol Succinate 75 mg 11/01/19 09:00 11/03/19 10:01 Toprol Xl PO 75 mg DAILY LINDA Administration Ondansetron HCl 4 mg 10/29/19 05:46 11/01/19 08:53 Zofran IVP 4 mg Q6H PRN Administration NAUSEA AND VOMITING Oxycodone/Acetaminophen 1 - 2 tab 11/01/19 09:51 11/03/19 09:59 Percocet 5-325 Mg PO 2 tab Q4H PRN Administration MODERATE TO SEVERE PAIN Sucralfate 1 gm 10/29/19 15:00 11/03/19 12:57 Carafate Oral Liq PO Not Given Q6H LINDA PFSH Acute PFSH: Statuses (acute, chronic, etc) shown below reflect problem list status as previously entered and may not be historically accurate Medical History (Updated 11/03/19 @ 07:33 by Perry Carroll MD) Asthma (Acute) Deep vein thrombophlebitis of leg (Acute) Dehiscence of closure of fascia, superficial or muscular (Resolved) Hepatitis C (Acute) History of adenocarcinoma of prostate (Acute) Hypertension (Acute) Morbid obesity (Acute) Osteoarthritis (Acute) Perforated gastric ulcer (Resolved) Sinus tachycardia (Acute) Surgical site infection (Acute) Surgical History (Updated 10/28/19 @ 17:37 by Siddharth Reagan MD) Hx of total knee arthroplasty (Acute) Social History (Updated 10/25/19 @ 20:03 by Stefania De La Rosa) Smoking and tobacco status: never smoked Alcohol intake: never Substance/Drug Use: never Vitals/I&O/Wt Last Vital Signs Temp 98.0 F 11/03/19 08:00 Pulse 87 11/03/19 12:00 Resp 16 11/03/19 12:00 BP 151/93 11/03/19 12:00 Pulse Ox 93 11/03/19 12:00 11/02/19 11/03/19 11/03/19 22:59 06:59 14:59 Intake Total 290 / 295.668 1070.167 / 2063.500 240 / 240 Output Total 320 / 620 750 / 1370 235 / 235 Balance -30 / 207.333 486.167 / 693.500 5 / 5 Weight last 48 hrs Weight 245 lb 7 oz Weight 244 lb 6 oz Data Micro: Micro: Microbiology 11/01/19 16:18 Gram Stain - Final Abdomen Tissue Culture - P reliminary Strep species, gamma-hemolytic Gram Negative R ods Perioperative Risk Evaluation Medical history: Implantable Devices Qty Instructional Design Consultant Implant Date Expiration Date Abdominal hernia s urgical mesh, andreina agen, antimicrobia l 1 [employer] 11/01/19 11/22/19 Recommendations: Nancy-op med management: Currently, there are no high priority active medications. Therefore, no specific actions are indicated. Cardiac Studies: No Data to Display Coding Level of Care Code Acute Leasing Coordinator for [facility]
[2019-11-03] MEDS: potassium chloride premix 40 MEQ/100 ML PREMIX 25 MEQ IV (16:28)
--- NOTE | 2019-11-03 22:20 | P.PN_ITS ---
Subjective Subjective: Interval history: pain persists, 05/04 but toleratimg well. Taking po intake. No further nausea. Medications: Reviewed: Yes Vitals/I&O/Wt Last Vital Signs Temp 98.3 F 11/03/19 20:00 Pulse 88 11/03/19 20:00 Resp 15 11/03/19 20:00 BP 113/72 11/03/19 20:00 Pulse Ox 93 11/03/19 20:00 11/03/19 11/03/19 11/03/19 06:59 14:59 22:59 Intake Total 1236.167 / 2063.500 1390 / 1390 1980 / 3370 Output Total 750 / 1370 235 / 235 365 / 600 Balance 486.167 / 143.700 3738 / 1155 1615 / 2770 Weight last 48 hrs Weight 111.329 kg Weight 110.847 kg Physical Exam Narrative: EXAM NARRATIVE: Gen: awake, alert and oriented CVS: S1S2 N RS: Bilateral basilar rails present coughing present abd: Wound vac removed, biologic mesh seen underneath with dehiscenece at top left corner Const: COMMON NORMALS: oriented x3 and alert Resp: COMMON NORMALS: normal respiratory effort, no retractions and no use of accessory muscles EFFORT & INSPECTION: Yes able to speak in complete sentences Cardio: COMMON NORMALS: regular rate (tachycardia), regular rhythm, S1 normal heart sound, S2 normal heart sound, no gallops, no murmurs, no rub and peripheral pulses 2+ throughout RATE: regular rate (tachycardia) RHYTHM: regular rhythm HEART SOUNDS: S1 normal and S2 normal PERIPHERAL PULSES: pulses 2+ throughout GI: OTHER: Neuro: COMMON NORMALS: oriented x3, CN's II-XII intact bilaterally, moves all extremities and no focal motor deficits SENSORIUM/ORIENTATION: Yes alert Psych: COMMON NORMALS: mental status grossly normal and affect normal Data Micro: Micro: Microbiology 10/26/19 16:00 Gram Stain - Final Abdomen Wound Culture - Fi nal Enterococcus fa ecium vre Klebsiella pneu moniae Stephanie albican s 11/01/19 16:18 Gram Stain - Final Abdomen Tissue Culture - P reliminary Strep species, gamma-hemolytic Gram Negative R ods A&P Assessment and plan (1) Surgical site infection: Superficial swab cx with VRE fecium and Klebsiella pneumonaie Status: Acute Code(s): T81.49XA - Infection following a procedure, other surgical site, initial encounter (2) Sinus tachycardia: Status: Acute Code(s): R00.0 - Tachycardia, unspecified (3) Hypertension: resume po lisinopril Status: Acute Code(s): I10 - Essential (primary) hypertension Additional A&P Information Additional A&P Information: Perforated gastric ulcer: s/p surgical repair. UGI series x2 with no leaks. Started on po meds and tolerating po meds. However he is unable to tolerate since last night. Worsening wound dehiscence likely due to mechanical stress from coughing, abdominal fascia weakness from smoking, steroids. Also concern for postop wound infection. Superficial wound culture with Klebsiella pneumonia and VRE. Currently on Zosyn and linezolid for the same unclear if this represents colonization after recent surgery vs true pathogen. Biological mesh now placed with wound vac overlying. Wound vac with top left corner with dehiscence. Blood pressure and HR better controlled now. MIKEY resolved DVT detected again on LE Doppler. A VQ scan for PE was negative. Patient already has an IVC filter in place as detected on x-rays. continue DVT prophylaxis with heparin. Not a candidate for full dose anticoagulation given recent surgeries Hemoglobin currently holding steady. We will keep threshold for transfusion at 8 as again 7 given that patient also has sinus tachycardia and may benefit from transfusion Patient reports inadequate pain control since switching medications to oxycodone IR. Start hydromorphone with prn dilaudid Incentive spirometry Wound care per surgical team. Encourage PT OT and ambulation Bronchitis continue [id number] nebulizations with DuoNeb's and budesonide Awaiting transfer to [facility] for further care per surgical recommendations Attestations Medical Necessity Statement*: management of post op wound dehiscence Coding Level of Care Code Acute Sweet Goods Machine Operator for [facility] Fwd Diagnoses Surgical site infection T81.49XA Sinus tachycardia R00.0 Hypertension I10
[2019-11-03] MEDS: HYDROcodone-acetaminophen 10-325 mg Tablet 1 TAB PO (22:44)
[2019-11-04] VITALS (24 sets, daily range): BP systolic 122–162; BP diastolic 81–104; PULSE 67–102; RESP 14–30; TEMP 36.8–37; O2SAT 29–97
[2019-11-04] MEDS: pantoprazole 40 MG in sodium chloride 0.9% (plus) 100 ML 20 MG IV ×5 (02:01→21:24)
[2019-11-04] MEDS: heparin 5,000 unit/mL INJ 1 mL 5000 UNIT SUBCUT ×2 (05:31→19:10)
[2019-11-04] MEDS: piperacillin-tazobactam 3.375 GM in sodium chloride 0.9% (plus) 50 ML IV ×3 (05:31→22:13)
[2019-11-04] MEDS: HYDROmorphone 1 mg/mL INJ 1 mL IVP ×4 (06:28→22:13)
[2019-11-04] MEDS: budesonide 0.5 mg/2 mL Neb INHALATION ×2 (07:47→19:18)
--- NOTE | 2019-11-04 07:55 | P.PN_ITS ---
Subjective Subjective: Interval history: Overall patient is doing well No acute events overnight Tolerating well p.o. intake Patient have excessive diarrhea C. difficile was sent Medications: Reviewed: Yes Vitals/I&O/Wt Last Vital Signs Temp 98.2 F 11/04/19 06:00 Pulse 67 11/04/19 07:34 Resp 17 11/04/19 07:34 BP 156/99 11/04/19 06:00 Pulse Ox 95 11/04/19 07:34 11/03/19 11/04/19 11/04/19 22:59 06:59 14:59 Intake Total 1979 / 0 1259 / 4629 Output Total 365 / 600 556 / 1156 Balance 1615 / 2770 703 / 3473 Weight last 48 hrs Weight 249 lb 2 oz Weight 245 lb 7 oz Physical Exam Const: COMMON NORMALS: no apparent distress, oriented x3 and alert EXAM LIMITATIONS: no altered mental status GENERAL APPEARANCE: cooperative ORIENTATION/CONSCIOUSNESS: Yes awake, Yes oriented to person, Yes oriented to place and Yes oriented to time Eye: COMMON NORMALS: PERRL and no scleral icterus PUPIL: Yes PERRL Chest: COMMONS NORMALS: inspection of chest normal Resp: COMMON NORMALS: normal respiratory effort AUSCULTATION: no rales and no rhonchi Cardio: COMMON NORMALS: S1 normal heart sound and S2 normal heart sound; negative for no murmurs HEART SOUNDS: S1 normal and S2 normal GI: COMMON NORMALS: soft to palpation; negative for non-tender and negative for no hepatosplenomegaly INSPECTION: Yes normal to inspection AUSCULTATION: Yes normoactive bowel sounds PALPATION: Yes soft, No firm, No tender, No guarding, No rigid, No no hepatosplenomegaly, No rebound tenderness present and Yes other (Right upper quadrant drains in place with serosanguinous output) PERCUSSION: other (Wound VAC in place the suction is working efficiently) Neuro: COMMON NORMALS: oriented x3 SENSORIUM/ORIENTATION: Yes alert, Yes oriented to person, Yes oriented to place and Yes oriented to time Skin: COMMON NORMALS: no mottling Data Micro: Micro: Microbiology 10/26/19 16:00 Gram Stain - Final Abdomen Wound Culture - Fi nal Enterococcus fa ecium vre Klebsiella pneu moniae Stephanie albican s 11/01/19 16:18 Gram Stain - Final Abdomen Tissue Culture - P reliminary Strep species, gamma-hemolytic Gram Negative R ods A&P Assessment and plan (1) Perforated gastric ulcer: This is a 64 years old gentleman status post repair of perforated gastric ulcer postoperative patient had surgery 10/22/2019 Patient developed superficial surgical site infection, followed by fascial dehiscence required surgical intervention October 28, 2019, undergone surgical debridement of the fascia and subcutaneous layer followed by interrupted closure of the fascia and a wound VAC application. Followed by fascial dehiscence and had a third trip to the OR November 01, 2019 and further debridement and placement of biologic mesh and wound VAC was done. Plan: PLAN OF CARE: CVS: Continue continuous cardiac monitoring, tachycardia and hypertension requires medical management will defer to hospitalist service,better controlled at present Anemia stable H&H PULMONARY: Continue weaning from oxygen Continue Aggressive pulmonary toilet Continue Incentive spirometer every hour Lasix IV when necessary GI: We will follow on C. difficile results NUTRITION: Soft GI diet/protein shakes RENAL: Continue monitoring kidney functions Strict I's and O's Continue electrolyte protocols for replacement including calcium potassium and magnesium INFECTIOUS DISEASE: We will coordinate with hospital service with regard antimicrobial therapy NEUROLOGY: No evidence of neurological deficit GCS 15 out of 15 MOBILITY:continue physical therapy Patient will benefit strongly from inferior to higher acuity facility to continue wound care and further management, particularly the biologic mesh is not being incorporated and started breaking down with bowel exposure. SKIN AND WOUND: Continue wound VAC care At this point I do not see further surgical intervention will add any benefit as long as the fascial dehiscence is being controlled. Continue drain care serous output. Pain control: Highly recommend to have pain controlled with transdermal patches and p.o. pain medications and DC IV pain meds We will continue coordinating with hospitalist service Assurance and education Continue encouragement Status: Resolved Code(s): K25.5 - Chronic or unspecified gastric ulcer with perforation (2) Surgical site infection: Antimicrobial therapy Status: Acute Code(s): T81.49XA - Infection following a procedure, other surgical site, initial encounter (3) Dehiscence of closure of fascia, superficial or muscular: Wound VAC therapy, will plan to change wound VAC today with application of white and black foam as a bedside procedure. Informed consent per chart Optimize nutrition At this point there is nothing more I can offer to the patient except local wound care and continue further control of fascial dehiscence with serial changes of wound VAC till the wound bed is reed cleaner, plan that the patient would develop granulation tissue to help healing and covering the exposed bowel. Status: Resolved Code(s): T81.32XA - Disruption of internal operation (surgical) wound, not elsewhere classified, initial encounter Attestations Medical Necessity Statement*: Medical necessity care is expected to cross 2 midnights Coding Level of Care Code Acute Marketing Project Manager for [facility] Fwd Exam Problem Focused Diagnoses Perforated gastric ulcer K25.5 Surgical site infection T81.49XA Dehiscence of closure of fascia, superficial or muscular T81.32XA Time Spent (min) 25
[2019-11-04] MEDS: HYDROcodone-acetaminophen 10-325 mg Tablet 1 TAB PO ×3 (08:00→19:18)
[2019-11-04] MEDS: ALPRAZolam 0.25 mg Tablet PO ×3 (08:00→18:26)
[2019-11-04] MEDS: lisinopril 10 mg Tablet PO (08:00)
[2019-11-04] MEDS: metoprolol succinate ER (24 HR) 50 mg Tablet 75 MG PO (08:01)
[2019-11-04 09:29] LABS: Alanine Aminotransferase 8 U/L (0-41); Albumin Level 3.3 g/dL (3.5-5.2); Alkaline Phosphatase 49 IU/L (40-130); Anion Gap 14.9 (5-19); Blood Urea Nitrogen 9 mg/dL (8-23); Calcium 8.7 mg/Dl (8.8-10.2); Carbon Dioxide 24 mmol/L (22-29); Chloride 102 mmol/L (98-107); Globulin 2.7 g/dL (1.3-4.6); Glomerular Filtration Rate 74.8 mL/min (90-130); Glucose 104 mg/dL (74-106); Potassium 3.9 mmol/L (3.5-5.1); Sodium 137 mmol/L (136-145); Total Bilirubin 0.4 mg/dL (0.15-1.2)
[2019-11-04 09:59] LABS: Basophils # 0.1 10^3/uL (0.0-0.1); Basophils % 0.9 %; Eosinophils # 0.2 10^3/uL (0.0-0.8); Eosinophils % 3.5 %; Hematocrit 27.2 % (42.0-52.0); Hemoglobin 8.6 g/dL (11.7-16.6); Lymphocytes # 1.3 10^3/uL (0.8-4.8); Lymphocytes % 23.1 %; Mean Corpuscular HGB Conc 31.6 g/dL (30.0-36.0); Mean Corpuscular Hemoglobin 29.8 pg (28.0-34.0); Mean Corpuscular Volume 94.1 fL (80-94); Mean Platelet Volume 10.4 fL (7.4-10.4); Monocytes # 0.5 10^3/uL (0.2-0.9); Neutrophils # 3.5 10^3/uL (1.8-7.7); Neutrophils % 63.1 %; Nucleated Red Blood Cells % 0 %; Platelet Count 242 10^3/cmm (130-400); Red Blood Count 2.89 10^6/uL (4.1-5.3); Red Cell Distribution Width 15.5 % (12.1-15.1); White Blood Count 5.5 10^3/uL (4.0-10.0)
[2019-11-04] MEDS: potassium chloride oral liq 20 mEq/15 mL UDC 40 MEQ PO (10:03)
[2019-11-04 10:04] LABS: Aspartate Amino Transferase 15 U/L (0-40)
[2019-11-04] MEDS: potassium chloride premix 40 MEQ/100 ML PREMIX 25 MEQ IV (10:04)
[2019-11-04] MEDS: linezolid premix 600 MG/300 ML PREMIX 300 MG IV (10:18)
--- NOTE | 2019-11-04 10:20 | PC.SOCIAL ---
IMM Updated Page 2 of IMM updated and given to patient. Initialed, dated, and timed and placed back in chart.
--- NOTE | 2019-11-04 11:11 | PC.SOCIAL ---
Discussed need for Transfer continues with Dr Michael. Dr Carroll recommends [facility] and Per Dr Michael patient is agreeable. Eve has called [facility] today with no answer but over last few days no bed availability. [facility] also had no availability per Eve note. [facility] and updated that [facility] and will need to look at other options and mentioned [facility]. She verbalized understanding and asked to be updated if patient is transferred so care can be followed. This nurse called bed control at [facility] relayed information regarding transfer to [facility] bed coordinator and provided her with Dr Carroll contact information. The surgeon at this location will need to speak with our surgeon since it is a surgical concern and is the reason for transfer. Number provided along with my contact information in case they are unable to reach provider. Sent facesheet to [facility] per her request via fax with confirmation of successful transmission. Updated Dr Michael. Will await if accepted and next steps.
--- NOTE | 2019-11-04 13:16 | PM.PN ---
Subjective Subjective: Interval history: Vitals stable and reviewed. No acute events overnight except multiple BM and c.diff sent. Tolerating well p.o. intake Vitals/I&O/Wt Last Vital Signs Temp 98.6 F 11/04/19 10:00 Pulse 84 11/04/19 12:00 Resp 16 11/04/19 12:00 BP 143/95 11/04/19 12:00 Pulse Ox 93 11/04/19 12:00 11/03/19 11/04/19 11/04/19 22:59 06:59 14:59 Intake Total 1979 / 3370 1259 / 4629 690 / 690 Output Total 365 / 600 556 / 1156 Balance 1615 / 2770 703 / 3473 690 / 690 Weight last 48 hrs Weight 113.001 kg Weight 111.329 kg Physical Exam Narrative: EXAM NARRATIVE: Narrative: EXAM NARRATIVE: Gen: awake, alert and oriented CVS: S1S2 N RS: Bilateral basilar rails present coughing present abd: Wound vac and drain present Const: COMMON NORMALS: oriented x3 and alert Resp: COMMON NORMALS: normal respiratory effort, no retractions and no use of accessory muscles EFFORT & INSPECTION: Yes able to speak in complete sentences Cardio: COMMON NORMALS: regular rate (tachycardia), regular rhythm, S1 normal heart sound, S2 normal heart sound, no gallops, no murmurs, no rub and peripheral pulses 2+ throughout RATE: regular rate (tachycardia) RHYTHM: regular rhythm HEART SOUNDS: S1 normal and S2 normal PERIPHERAL PULSES: pulses 2+ throughout GI: OTHER: Neuro: COMMON NORMALS: oriented x3, CN's II-XII intact bilaterally, moves all extremities and no focal motor deficits SENSORIUM/ORIENTATION: Yes alert Psych: COMMON NORMALS: mental status grossly normal and affect normal Data Micro: Micro: Microbiology 10/26/19 16:00 Gram Stain - Final Abdomen Wound Culture - Fi nal Enterococcus fa ecium vre Klebsiella pneu moniae Stephanie albican s 11/01/19 16:18 Gram Stain - Final Abdomen Tissue Culture - P reliminary Strep species, gamma-hemolytic Gram Negative R ods A&P Assessment and plan (1) Dehiscence of closure of fascia, superficial or muscular: Status: Resolved Code(s): T81.32XA - Disruption of internal operation (surgical) wound, not elsewhere classified, initial encounter (2) Perforated gastric ulcer: Status: Resolved Code(s): K25.5 - Chronic or unspecified gastric ulcer with perforation (3) Anemia: Status: Acute Code(s): D64.9 - Anemia, unspecified (4) Sinus tachycardia: Status: Acute Code(s): R00.0 - Tachycardia, unspecified (5) Deep vein thrombophlebitis of leg: Status: Acute Code(s): I80.209 - Phlebitis and thrombophlebitis of unspecified deep vessels of unspecified lower extremity (6) Hypertension: Status: Acute Code(s): I10 - Essential (primary) hypertension (7) Hypokalemia: Status: Acute Code(s): E87.6 - Hypokalemia Additional A&P Information Additional A&P Information: Perforated gastric ulcer:s/p open laprotomy surgical repair: POD 13 Post Op wound dehiscence : UGI series x2 with no leaks. Started on po meds and tolerating po meds. Tolerating PO well. Worsening wound dehiscence most likely due to mechanical stress from coughing, abdominal fascia weakness from smoking, steroids less likely from postop wound infection. Superficial wound culture with Klebsiella pneumonia and VRE-- unclear if this represents colonization vs true pathogen as no fever nad no leukocytosis. Currently on Zosyn and linezolid for the same. Will c/w same. Biological mesh now placed with wound vac overlying. To be managed by surgical team. Recs appreciated. HTN/Tachycardia: C/w metoprolol ER and lisinopril for now. Blood pressure and HR better controlled now. MIKEY: Resolved. Monitor for renal functions and nephrotoxic drugs. DVT detected again on LE Doppler. A VQ scan for PE was negative. Patient already has an IVC filter in place as detected on x-rays. continue DVT prophylaxis with heparin. Not a candidate for full dose anticoagulation given recent surgeries. Anemia: Post OP: We will keep threshold for transfusion at 8 as again 7 given that patient also has sinus tachycardia and may benefit from transfusion. Hb today 8.1. Will transfuse 1 unit PRBC. Watch for fluid overload. Patient reports inadequate pain control since switching medications to oxycodone IR. Start hydromorphone with prn Incentive spirometry Wound care per surgical team. Encourage PT/OT and ambulation Bronchitis: continue [id number] nebulizations with DuoNeb's and budesonide Awaiting transfer to [facility] for further care per surgical recommendations Attestations Medical Necessity Statement*: post op care of perforated ulcer. Critical Care Time: Critical care time: 75 - 104 mins Coding Level of Care Code Acute Splicing Machine Operator Automatic for Chg Fwd Diagnoses Dehiscence of closure of fascia, superficial or muscular T81.32XA Perforated gastric ulcer K25.5 Anemia D64.9 Sinus tachycardia R00.0 Deep vein thrombophlebitis of leg I80.209 Hypertension I10 Hypokalemia E87.6
--- NOTE | 2019-11-04 15:46 | PC.CHAP ---
Pastoral Care Encounter/Spiritual Assessment Type of Contact [] Declined invoice machine operator visit [] Patient/Family/Request visit [] Outpatient visit [] Follow-up visit [] Physician referral [] Code/Alert [] Routine visit [] Staff referral [] Actively dying [] Patient sleeping [] Family support [] [] Out of room [] Palliative care [] [] Receiving care in room [] Pre-surgical visit [] Trauma [] Long length of stay [x] ICU visit [] Other: Relational/Emotional Strength [] Patient feels connected with others/family/visitors/staff [] Distress [] Loneliness/isolation [] Abandonment Spirituality of Patient [] Person of Wendy [] Attends Anabaptist of their Wendy [] Believes in Prayer [] Reads Bible or Anglican materials [] There are Spiritual issues to be addressed Loan And Credit Manager Interventions [] Prayer [] Active listening [] Non-anxious presence [] Spiritual/emotional support [] Crisis/trauma care [] Spiritual counseling [] Bereavement support [] Provided bereavement packet [] Provided Bible/devotional materials [] Provided toy/stuffed animal, coloring book to patient or family member [] Completed spiritual assessment [] Provided Communion [] Anointing/[place] [] Salvation [] Other: Impact on Illness or Injury [] Angry [] Fearful [] Anxious [] Often cries [] Exhaustion [] Unable to work [] Unable to attend yazdanism [] Unable to walk/stand [] Unable to read [] Unable to drive [] Unable to eat/drink [] Unable to sleep [] Unable to be with family [] Other: Summary Time spent with patient patient is contact precautions. Loan And Credit Manager prayed outside of room. 5 min.
[2019-11-04] MEDS: sodium chloride 0.9% 100 ML (16:40)
[2019-11-04] MEDS: sucralfate 1 gm/10 mL Oral Liq UDC PO (19:13)
[2019-11-05] VITALS (20 sets, daily range): BP systolic 127–166; BP diastolic 66–107; PULSE 78–106; RESP 16–25; TEMP 36.4–37.2; O2SAT 93–99
[2019-11-05] MEDS: linezolid premix 600 MG/300 ML PREMIX 300 MG IV ×2 (00:14→11:08)
[2019-11-05] MEDS: HYDROcodone-acetaminophen 10-325 mg Tablet 1 TAB PO ×2 (00:14→06:07)
[2019-11-05] MEDS: sucralfate 1 gm/10 mL Oral Liq UDC PO ×3 (00:15→18:19)
[2019-11-05] MEDS: ALPRAZolam 0.25 mg Tablet PO (00:15)
[2019-11-05] MEDS: pantoprazole 40 MG in sodium chloride 0.9% (plus) 100 ML 20 MG IV ×5 (02:02→22:59)
[2019-11-05] MEDS: HYDROmorphone 1 mg/mL INJ 1 mL IVP ×3 (02:03→11:08)
[2019-11-05] MEDS: heparin 5,000 unit/mL INJ 1 mL 5000 UNIT SUBCUT ×2 (06:07→18:23)
[2019-11-05] MEDS: piperacillin-tazobactam 3.375 GM in sodium chloride 0.9% (plus) 50 ML IV ×3 (06:08→21:34)
[2019-11-05] MEDS: budesonide 0.5 mg/2 mL Neb INHALATION ×2 (08:59→19:44)
[2019-11-05] MEDS: metoprolol succinate ER (24 HR) 50 mg Tablet 75 MG PO (09:29)
[2019-11-05] MEDS: lisinopril 10 mg Tablet PO (09:29)
--- NOTE | 2019-11-05 10:05 | P.PN_ITS ---
Subjective Subjective: Interval history: Overall patient is doing well No acute events overnight Tolerating well p.o. intake Patient have excessive diarrhea C. difficile was sent was negative and was started on Immodium Medications: Reviewed: Yes Vitals/I&O/Wt Last Vital Signs Temp 98.6 F 11/04/19 22:00 Pulse 99 11/05/19 09:07 Resp 18 11/05/19 08:59 BP 156/102 11/05/19 08:00 Pulse Ox 96 11/05/19 08:59 11/04/19 11/05/19 11/05/19 22:59 06:59 14:59 Intake Total 721.933 / 1496.933 625.334 / 2122.267 1013.5 / 1013.5 Output Total 212 / 212 200 / 412 Balance 509.933 / 1284.933 425.334 / 3478.828 5363.5 / 1013.5 Weight last 48 hrs Weight 252 lb 4.8 oz Weight 249 lb 2 oz Physical Exam Const: COMMON NORMALS: no apparent distress, oriented x3 and alert EXAM LIMITATIONS: no altered mental status GENERAL APPEARANCE: cooperative ORIENTATION/CONSCIOUSNESS: Yes awake, Yes oriented to person, Yes oriented to place and Yes oriented to time Eye: COMMON NORMALS: PERRL and no scleral icterus PUPIL: Yes PERRL Chest: COMMONS NORMALS: inspection of chest normal Resp: COMMON NORMALS: normal respiratory effort AUSCULTATION: no rales and no rhonchi Cardio: COMMON NORMALS: S1 normal heart sound and S2 normal heart sound; negative for no murmurs HEART SOUNDS: S1 normal and S2 normal GI: COMMON NORMALS: soft to palpation; negative for non-tender and negative for no hepatosplenomegaly INSPECTION: Yes normal to inspection AUSCULTATION: Yes normoactive bowel sounds PALPATION: Yes soft, No firm, No tender, No guarding, No rigid, No no hepatosplenomegaly, No rebound tenderness present and Yes other (Right upper quadrant drains in place with serosanguinous output) PERCUSSION: other (Wound VAC in place the suction is working efficiently) Neuro: COMMON NORMALS: oriented x3 SENSORIUM/ORIENTATION: Yes alert, Yes oriented to person, Yes oriented to place and Yes oriented to time Skin: COMMON NORMALS: no mottling GENERAL SKIN EXAM: other (No evidence of evisceration/ no fecal odor) LESIONS: other (patient does have controlled fascial dehiscence stable otherwise) Data Micro: Micro: Microbiology 11/03/19 23:22 C.difficile Toxin B Gene (PCR) - Fin al Stool 11/01/19 16:18 Gram Stain - Final Abdomen Tissue Culture - P reliminary Enterococcus sp ecies Klebsiella pneu moniae 10/26/19 16:00 Gram Stain - Final Abdomen Wound Culture - Fi nal Enterococcus fa ecium vre Klebsiella pneu moniae Stephanie albican s A&P Assessment and plan (1) Perforated gastric ulcer: This is a 64 years old gentleman status post repair of perforated gastric ulcer postoperative patient had surgery 10/22/2019 Patient developed superficial surgical site infection, followed by fascial dehiscence required surgical intervention October 28, 2019, undergone surgical debridement of the fascia and subcutaneous layer followed by interrupted closure of the fascia and a wound VAC application. Followed by fascial dehiscence and had a third trip to the OR November 01, 2019 and further debridement and placement of biologic mesh and wound VAC was done. Plan: PLAN OF CARE: CVS: Continue continuous cardiac monitoring, tachycardia and hypertension requires medical management will defer to hospitalist service,better controlled at present Anemia stable H&H PULMONARY: Continue weaning from oxygen Continue Aggressive pulmonary toilet Continue Incentive spirometer every hour Lasix IV when necessary GI: C. difficile results were negative and patient was started on Imodium NUTRITION:GI diet/protein shakes RENAL: Continue monitoring kidney functions Strict I's and O's Continue electrolyte protocols for replacement including calcium potassium and magnesium INFECTIOUS DISEASE: We will coordinate with hospital service with regard antimicrobial therapy NEUROLOGY: No evidence of neurological deficit GCS 15 out of 15 MOBILITY:continue physical therapy SKIN AND WOUND: Continue wound VAC care At this point I do not see further surgical intervention will add any benefit as long as the fascial dehiscence is being controlled. Wound VAC changed today bedside by me Continue drain care serous output. Pain control: Highly recommend to have pain controlled with transdermal patches and p.o. pain medications and DC IV pain meds We will continue coordinating with hospitalist service Assurance and education Continue encouragement Status: Resolved Code(s): K25.5 - Chronic or unspecified gastric ulcer with perforation (2) Surgical site infection: Antimicrobial therapy Status: Acute Code(s): T81.49XA - Infection following a procedure, other surgical site, initial encounter (3) Dehiscence of closure of fascia, superficial or muscular: Wound VAC therapy, will plan to change wound VAC today with application of white and black foam as a bedside procedure. Informed consent per chart Optimize nutrition At this point there is nothing more I can offer to the patient except local wound care and continue further control of fascial dehiscence with serial changes of wound VAC till the wound bed is tank car cleaner, plan that the patient would develop granulation tissue to help healing and covering the exposed bowel. Attempts were done yesterday by communicating with Dr. Bennett over [facility] in [place] [facility], yet she elected not to accept the patient for transfer as she does not see clear indication from her perspective f or patient's transfer, she believes that everything was done appropriately and she agreed with me on the plan of care yet she does not see an indication to have the patient coming over for wound VAC changes. Other attempt was done today and I did talk in person with Dr. Brown over [facility] that he elected not to accept the patient at this point as the complex approach has been already achieved and he would not be doing anything extra that I have done just a matter of continuity of wound VAC changes and local wound care. I did explain for both Dr. Bennett and Dr. Brown about the limitations of our hospital and both understand but they are not able to have the patient on their services. From Surgical standpoint of view patient can be transferred to stepdown Status: Resolved Code(s): T81.32XA - Disruption of internal operation (surgical) wound, not elsewhere classified, initial encounter Attestations Medical Necessity Statement*: Medical necessity care is expected to cross 2 midnights Coding Level of Care Code Acute Obstetrics Gynecology Md for [facility] Fwd Exam Problem Focused Diagnoses Perforated gastric ulcer K25.5 Surgical site infection T81.49XA Dehiscence of closure of fascia, superficial or muscular T81.32XA
--- NOTE | 2019-11-05 10:09 | PM.ACPR ---
Procedure/Consent Time out: Time Out Performed: Yes Acute Procedures Burn & Wound Care/Dressing^: Trunk: Debridement necessary: Yes Type of dressing: other (Wound VAC application) Neurovascular qualities intact after dressing application: Yes Patient tolerated procedure: well Additional comments: Wound VAC application Pre-procedure diagnosis; abdominal wound dehiscence, patient undergone biologic mesh placement and wound Post-Procedure diagnosis the same, breakdown of the except at the lower part of the abdomen biologic mesh position with bowels and omentum in place Procedure done wound VAC application in the form of Adaptic followed by black foam Sharp debridement was done all the way to the intra-abdominal cavity, measurement of the wound pre-debridement measurements 16-1/2 x 8-1/2 cm and 4 cm depth Post debridement measurements the same One of the intra-abdominal drains were removed at bedside by me was placed at the index surgery, I elected to keep the other drain for now Description of the procedure After informed consent to being in the chart and timeout was done The older wound VAC dressing was taken off after suction was discontinued, the foam was removed , underlying wound dehiscence was noticed with a breakdown of the biologic mesh etc. at the south part of the wound, Prolene sutures were removed as well as necrotic tissues of the edges of the, viable bowel and omentum in place without sinus or fistula formation, reapplication of a Adaptic as white foam was not available covered with a black foam and wound VAC system applied to a pressure of 125mmHg continuous form. Patient tolerated the procedure well I was present for the whole entire procedure Complications: No immediate complications EBL:none Specimens: none Mode of anesthesia: none Surgeon Perry Carroll MD Web Site Project Manager FABRICIO Sharma Epistaxis Control: Time out performed: Yes
[2019-11-05 10:44] LABS: Basophils % 0.7 %; Eosinophils # 0.2 10^3/uL (0.0-0.8); Eosinophils % 3.7 %; Hematocrit 29.7 % (42.0-52.0); Hemoglobin 9.2 g/dL (11.7-16.6); Lymphocytes # 0.9 10^3/uL (0.8-4.8); Lymphocytes % 23.1 %; Mean Corpuscular Hemoglobin 29.5 pg (28.0-34.0); Mean Corpuscular Volume 95.2 fL (80-94); Mean Platelet Volume 9.7 fL (7.4-10.4); Monocytes # 0.4 10^3/uL (0.2-0.9); Monocytes % 9.8 %; Neutrophils # 2.5 10^3/uL (1.8-7.7); Neutrophils % 62.5 %; Nucleated Red Blood Cells % 0 %; Platelet Count 238 10^3/cmm (130-400); Red Blood Count 3.12 10^6/uL (4.1-5.3); Red Cell Distribution Width 16.5 % (12.1-15.1); White Blood Count 4.1 10^3/uL (4.0-10.0)
[2019-11-05 10:55] LABS: Alanine Aminotransferase 7 U/L (0-41); Albumin Level 2.9 g/dL (3.5-5.2); Alkaline Phosphatase 54 IU/L (40-130); Anion Gap 13.4 (5-19); Aspartate Amino Transferase 11 U/L (0-40); Blood Urea Nitrogen 9 mg/dL (8-23); Calcium 8.7 mg/Dl (8.8-10.2); Carbon Dioxide 23 mmol/L (22-29); Chloride 104 mmol/L (98-107); Globulin 2.7 g/dL (1.3-4.6); Glucose 117 mg/dL (74-106); Potassium 3.4 mmol/L (3.5-5.1); Sodium 137 mmol/L (136-145); Total Bilirubin 0.4 mg/dL (0.15-1.2); Total Protein 5.6 g/dL (6.6-8.7)
[2019-11-05] MEDS: potassium chloride oral liq 20 mEq/15 mL UDC 40 MEQ PO (15:39)
--- NOTE | 2019-11-05 18:16 | P.PN_ITS ---
Subjective Subjective: Interval history: Overall patient is doing well. Had one unit transfusion yesterday. Vitals stable and reviewed. No acute events overnight Tolerating well p.o. intake. Patient to be transferred as per Sx for further management and not accepted at [facility] surgical team yesterday. Awaiting PR bed. Medications: Reviewed: Yes Vitals/I&O/Wt Last Vital Signs Temp 98.9 F 11/05/19 10:00 Pulse 90 11/05/19 12:00 Resp 18 11/05/19 12:00 BP 147/90 11/05/19 12:00 Pulse Ox 97 11/05/19 12:00 11/05/19 11/05/19 11/05/19 06:59 14:59 22:59 Intake Total 625.334 / 2122.267 2000.167 / 1999.167 100 / 2100.167 Output Total 200 / 412 300 / 300 Balance 425.334 / 5582.297 8701.167 / 1700.167 100 / 1800.167 Weight last 48 hrs Weight 114.441 kg Weight 113.001 kg Physical Exam Narrative: EXAM NARRATIVE: General: No acute distress, AO x3, only distress due to pain on cough. HEENT: PERRLA, pupils bilaterally equal and reactive Chest: Normal vesicular breath sounds, no added sounds, equal good air entry bilaterally, poor inspiratory effort CVS: S1-S2 regular, no murmurs, no tachycardia, no gallops, no rubs Abdomen: Soft, central wound vac present. central surgical open wound present with healthy underlying omentum, biological uptake negative. Neuro: No focal deficits, no facial deformity, AO x3, power 5/5 in all limbs Data Micro: Micro: Microbiology 11/01/19 16:18 Gram Stain - Final Abdomen Tissue Culture - F inal Enterococcus fa ecium vre Klebsiella pneu moniae 11/03/19 23:22 C.difficile Toxin B Gene (PCR) - Fin al Stool 10/26/19 16:00 Gram Stain - Final Abdomen Wound Culture - Fi nal Enterococcus fa ecium vre Klebsiella pneu moniae Stephanie albican s A&P Assessment and plan (1) Dehiscence of closure of fascia, superficial or muscular: Status: Resolved Code(s): T81.32XA - Disruption of internal operation (surgical) wound, not elsewhere classified, initial encounter (2) Perforated gastric ulcer: Status: Resolved Code(s): K25.5 - Chronic or unspecified gastric ulcer with perforation (3) Anemia: Status: Acute Code(s): D64.9 - Anemia, unspecified (4) Sinus tachycardia: Status: Acute Code(s): R00.0 - Tachycardia, unspecified (5) Deep vein thrombophlebitis of leg: Status: Acute Code(s): I80.209 - Phlebitis and thrombophlebitis of unspecified deep vessels of unspecified lower extremity (6) Hypertension: resume po lisinopril Status: Acute Code(s): I10 - Essential (primary) hypertension (7) Hypokalemia: Status: Acute Code(s): E87.6 - Hypokalemia Additional A&P Information Additional A&P Information: Perforated gastric ulcer:s/p open laprotomy surgical repair: POD 14 Post Op wound dehiscence : Examined wound with Dr. stern from Sx UGI series x2 with no leaks. Started on po meds and tolerating po meds. Tolerating PO well. Worsening wound dehiscence most likely due to mechanical stress from coughing, abdominal fascia weakness from smoking, steroids less likely from postop wound infection. Superficial wound culture with Klebsiella pneumonia and VRE-- unclear if this represents colonization vs true pathogen as no fever nad no leukocytosis. Currently on Zosyn and linezolid for the same. Has had a prolonged Abx course will try to wean Abx now. D/c linezolid and monitor Biological mesh with no uptake again noticed on wound exam. Wound vac changed today. Drain and charis removed today. To be managed by surgical team. Recs appreciated. Pain control appropriate on current meds. C/w same for now. Oxy 10 mg PO Q6h as needed. HTN/Tachycardia: C/w metoprolol ER and lisinopril for now. Blood pressure and HR better controlled now. MIKEY: Resolved. Monitor for renal functions and nephrotoxic drugs. DVT detected again on LE Doppler. A VQ scan for PE was negative. Patient already has an IVC filter in place as detected on x-rays. continue DVT prophylaxis with heparin. Not a candidate for full dose anticoagulation given recent surgeries. Anemia: Post OP: We will keep threshold for transfusion at 8 as again 7 given that patient also has sinus tachycardia and may benefit from transfusion. Transfused yesterday 1 unit PRBC. Hb 9.2 today. continue to monitor. Incentive spirometry Wound care per surgical team. Encourage PT/OT and ambulation Bronchitis: continue [id number] nebulizations with DuoNeb's and budesonide Awaiting transfer to [facility] for further care per surgical recommendations Attestations Medical Necessity Statement*: Further management of perforated ulcer Critical Care Time: Critical care time: 75 - 104 mins Coding Level of Care Code Acute Practice Professional for [facility] Diagnoses Dehiscence of closure of fascia, superficial or muscular T81.32XA Perforated gastric ulcer K25.5 Anemia D64.9 Sinus tachycardia R00.0 Deep vein thrombophlebitis of leg I80.209 Hypertension I10 Hypokalemia E87.6
[2019-11-05] MEDS: oxyCODONE 5 mg IR Tab/Cap 10 MG PO (18:20)
[2019-11-06] VITALS (13 sets, daily range): BP systolic 121–161; BP diastolic 86–106; PULSE 85–102; RESP 18–27; TEMP 36.8–36.9; O2SAT 94–98
[2019-11-06] MEDS: sucralfate 1 gm/10 mL Oral Liq UDC PO ×2 (00:33→09:26)
[2019-11-06] MEDS: oxyCODONE 5 mg IR Tab/Cap 10 MG PO ×3 (00:33→13:25)
[2019-11-06 05:25] LABS: Basophils % 0.5 %; Eosinophils # 0.1 10^3/uL (0.0-0.8); Eosinophils % 2.7 %; Hematocrit 29.3 % (42.0-52.0); Hemoglobin 9.3 g/dL (11.7-16.6); Lymphocytes # 0.8 10^3/uL (0.8-4.8); Lymphocytes % 21.9 %; Mean Corpuscular HGB Conc 31.7 g/dL (30.0-36.0); Mean Corpuscular Hemoglobin 30.5 pg (28.0-34.0); Mean Corpuscular Volume 96.1 fL (80-94); Mean Platelet Volume 9.4 fL (7.4-10.4); Monocytes # 0.4 10^3/uL (0.2-0.9); Monocytes % 10.1 %; Neutrophils # 2.4 10^3/uL (1.8-7.7); Neutrophils % 64.3 %; Nucleated Red Blood Cells % 0 %; Platelet Count 246 10^3/cmm (130-400); Red Blood Count 3.05 10^6/uL (4.1-5.3); Red Cell Distribution Width 16.1 % (12.1-15.1); White Blood Count 3.7 10^3/uL (4.0-10.0)
[2019-11-06 05:38] LABS: Alanine Aminotransferase 8 U/L (0-41); Albumin Level 3.1 g/dL (3.5-5.2); Alkaline Phosphatase 58 IU/L (40-130); Anion Gap 12.9 (5-19); Aspartate Amino Transferase 11 U/L (0-40); Blood Urea Nitrogen 7 mg/dL (8-23); Calcium 8.8 mg/Dl (8.8-10.2); Carbon Dioxide 25 mmol/L (22-29); Chloride 102 mmol/L (98-107); Globulin 2.6 g/dL (1.3-4.6); Glucose 101 mg/dL (74-106); Potassium 3.9 mmol/L (3.5-5.1); Sodium 136 mmol/L (136-145); Total Bilirubin 0.4 mg/dL (0.15-1.2); Total Protein 5.7 g/dL (6.6-8.7)
[2019-11-06] MEDS: heparin 5,000 unit/mL INJ 1 mL 5000 UNIT SUBCUT (06:13)
[2019-11-06] MEDS: pantoprazole 40 MG in sodium chloride 0.9% (plus) 100 ML 20 MG IV (06:14)
[2019-11-06] MEDS: piperacillin-tazobactam 3.375 GM in sodium chloride 0.9% (plus) 50 ML IV ×2 (06:14→13:19)
[2019-11-06] MEDS: budesonide 0.5 mg/2 mL Neb INHALATION (08:35)
--- NOTE | 2019-11-06 09:07 | P.PN_ITS ---
Subjective Subjective: Interval history: Vitals stable and reviewed. No acute events overnight except multiple BM and c.diff sent. Tolerating well p.o. intake Wound VAC continues to be in place and functioning well Medications: Reviewed: Yes Vitals/I&O/Wt Last Vital Signs Temp 98.3 F 11/06/19 08:00 Pulse 99 11/06/19 08:40 Resp 18 11/06/19 08:00 BP 148/98 11/06/19 08:00 Pulse Ox 96 11/06/19 08:37 11/05/19 11/06/19 11/06/19 22:59 06:59 14:59 Intake Total 443.667 / 2443.834 150 / 2593.834 Output Total 150 / 450 125 / 575 Balance 293.667 / 1993.834 2017.4 Weight last 48 hrs Weight 256 lb Weight 252 lb 4.8 oz Physical Exam Const: COMMON NORMALS: no apparent distress, oriented x3 and alert EXAM LIMITATIONS: no altered mental status GENERAL APPEARANCE: cooperative ORIENTATION/CONSCIOUSNESS: Yes awake, Yes oriented to person, Yes oriented to place and Yes oriented to time Eye: COMMON NORMALS: PERRL and no scleral icterus PUPIL: Yes PERRL Chest: COMMONS NORMALS: inspection of chest normal Resp: COMMON NORMALS: normal respiratory effort AUSCULTATION: no rales and no rhonchi Cardio: COMMON NORMALS: S1 normal heart sound and S2 normal heart sound; negative for no murmurs HEART SOUNDS: S1 normal and S2 normal GI: COMMON NORMALS: soft to palpation; negative for non-tender and negative for no hepatosplenomegaly INSPECTION: Yes normal to inspection PALPATION: Yes soft, No firm, No tender, No guarding, No rigid, No no hepatosplenomegaly, No rebound tenderness present and Yes other (Right upper quadrant drain in place with serosanguinous output) PERCUSSION: other (Wound VAC in place the suction is working efficiently) GI image (male): 1. Wound VAC in place without complications 2. Second drain in place without complications with serosanguineous Neuro: COMMON NORMALS: oriented x3 SENSORIUM/ORIENTATION: Yes alert, Yes oriented to person, Yes oriented to place and Yes oriented to time Skin: COMMON NORMALS: no mottling GENERAL SKIN EXAM: other (No evidence of evisceration/ no fecal odor) LESIONS: other (patient does have controlled fascial dehiscence stable otherwise) WOUNDS: Yes wounds noted (Dressing stable) WOUNDS: Yes wounds noted (Dressing stable) Data Micro: Micro: Microbiology 11/01/19 16:18 Gram Stain - Final Abdomen Tissue Culture - F inal Enterococcus fa ecium vre Klebsiella pneu moniae A&P Assessment and plan (1) Perforated gastric ulcer: This is a 64 years old gentleman status post repair of perforated gastric ulcer postoperative patient had surgery 10/22/2019 Patient developed superficial surgical site infection, followed by fascial dehiscence required surgical intervention October 28, 2019, undergone surgical debridement of the fascia and subcutaneous layer followed by interrupted closure of the fascia and a wound VAC application. Followed by fascial dehiscence and had a third trip to the OR November 01, 2019 and further debridement and placement of biologic mesh and wound VAC was done. Plan: PLAN OF CARE: CVS: Telemetry stable H&H PULMONARY: Continue weaning from oxygen Continue Aggressive pulmonary toilet Continue Incentive spirometer every hour Lasix IV when necessary GI: Continue Imodium as needed NUTRITION:GI diet/protein shakes RENAL: Continue monitoring kidney functions Strict I's and O's Recommend to hold on daily blood work and have it twice or thrice a week INFECTIOUS DISEASE: We will coordinate with hospital service with regard antimicrobial therapy NEUROLOGY: No evidence of neurological deficit GCS 15 out of 15 MOBILITY:continue physical therapy SKIN AND WOUND: Continue wound VAC care At this point I do not see further surgical intervention will add any benefit as long as the fascial dehiscence is being controlled. Wound VAC changed yesterday by me Continue drain care serous output, will plan to DC the second drain tomorrow with the wound VAC change if patient continues to stay in the hospital and not transfered. Will request white foam to be available with wound VAC change next time Pain control: Wean off parenteral IV analgesia We will continue coordinating with hospitalist service Assurance and education Continue encouragement Status: Resolved Code(s): K25.5 - Chronic or unspecified gastric ulcer with perforation (2) Surgical site infection: Antimicrobial therapy per hospitalist service Will continue local wound care in the form of wound VAC changes Status: Acute Code(s): T81.49XA - Infection following a procedure, other surgical site, initial encounter (3) Dehiscence of closure of fascia, superficial or muscular: Wound VAC therapy, will plan to change wound VAC today with application of white and black foam as a bedside procedure. Informed consent per chart Optimize nutrition At this point there is nothing more I can offer to the patient except local wo und care and continue further control of fascial dehiscence with serial changes of wound VAC till the wound bed is overhead cleaner, plan that the patient would develop granulation tissue to help healing and covering the exposed bowel. Attempts were done 11/04/[address] Bennett over [facility] in [place] at [facility], yet she elected not to accept the patient for transfer as she does not see clear indication from her perspective for patient's transfer, she believes that everything was done appropriately and she agreed with me on the plan of care yet she does not see an indication to have the patient coming over for wound VAC changes. Other attempt was done 11/05/19 and I did talk in person with Dr. Brown over [facility] that he elected not to accept the patient at this point as the complex approach has been already achieved and he would not be doing a nything extra that I have done just a matter of continuity of wound VAC changes and local wound care. I did explain for both Dr. Bennett and Dr. Brown about the limitations of our hospital and both understand but they are not able to have the patient on their services. 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
[2019-11-06] MEDS: FUROsemide 20 mg Tablet PO (09:22)
[2019-11-06] MEDS: lisinopril 10 mg Tablet PO (09:22)
[2019-11-06] MEDS: metoprolol succinate ER (24 HR) 50 mg Tablet 75 MG PO (09:22)
--- NOTE | 2019-11-06 11:58 | PM.TDS ---
Transfer Summary Providers Date of Admission: 10/22/19 23:30 Date of Discharge: 11/06/19 Attending Provider at Admission: Dyana Salomon MD Attending Provider at Transfer: MD Dr. Yaima Moran Primary Care Provider: Sravan Garcia Anticipated Date of Transfer: Anticipated date of transfer: 11/06/19 Receiving Facility & Provider: Receiving Provider: [Dr. Kamaljit Poe] Receiving facility: [[facility]] Diagnoses at Discharge Discharge Diagnosis (1) Perforated gastric ulcer: Status: Resolved (2) Surgical site infection: Status: Acute (3) Dehiscence of closure of fascia, superficial or muscular: Status: Resolved Reason for Visit Reason for Visit: Reason For Visit: Perforated Bowel Hospital Course Discharge Summary: This a 64-year-old gentleman past medical history of hypertension, asthma, morbid obesity, obstructive is sleep apnea, treated hepatitis C, prostate adenocarcinoma post radiation therapy with a remote history of DVT post anticoagulation treatment and within in place IVC filter who presented to the hospital on October 22 with abdominal pain and was found to have a perforated ulcer. Patient was admitted to the ICU and taken to the OR and he underwent Lm patch open repair of perforated antral gastric ulcer with intraoperative EGD for clips application to the ulcer. His postoperative course was complicated by anemia for which he has received in all 4 units of blood transfusion with hemoglobin stable to be at 9.3. He was also found to have dehiscence of the surgical abdominal wound which is been treated by frequent wound VAC changes along with biological mesh. Even after frequent wound VAC changes and appropriate surgical dressings patient's wound continues to remain complex with last wound VAC change on November 05 during which he was found to have breakdown of the surgical max in the wound except at the lower part with bowels and omentum in place appearing healthy and the wound was covered with Adaptic followed by black foam. His deep wound cultures are growing enterococcus VRE and Klebsiella pneumonia for which he has been continuously covered with Zosyn and linezolid. Patient continued to remain hemodynamically stable and afebrile and most likely it is representing colonization versus a true pathogen. Linezolid was discontinued on November 06. At presentation patient was in MIKEY which had resolved with IV fluid resuscitation along with occasional IV diuretic diuresis to maintain euvolemic status. His postoperative course was also complicated by occasional tachycardia most likely due to pain and anemia which were treated with IV Lopressor at the start and now has been continued on oral Lopressor. Patient had repeated lower limb Dopplers with last Doppler on October 28 suggestive of bilateral DVT most likely acute. Patient was noted to have an IVC filter in the abdominal imaging. Given the recent surgery and recurrent anemia patient could not be started on full anticoagulation but has been maintained on DVT prophylaxis. Patient had 2 Gastrografin upper GI series with last done on November 02 and have been negative for any kind of postoperative leak. Patient's diet has been gradually advanced and he continues to tolerate the oral diet well. Patient has had occasional diarrhea which has been checked for C. difficile and has remained negative with last negative on November 04. Patient remains hemodynamically stable and is being transferred for further surgical care of postoperative complex abdominal wound. Physical Exam Narrative: EXAM NARRATIVE: General: No acute distress, AO x3, only distress due to pain on cough. HEENT: PERRLA, pupils bilaterally equal and reactive Chest: Normal vesicular breath sounds, no added sounds, equal good air entry bilaterally, poor inspiratory effort CVS: S1-S2 regular, no murmurs, no tachycardia, no gallops, no rubs Abdomen: Soft, central wound vac present. central surgical open wound present with healthy underlying omentum, biological uptake negative. Neuro: No focal deficits, no facial deformity, AO x3, power 5/5 in all limbs TS Data Data Completed and Pending: Completed Studies During Hospitalization Category Date Time Status CXRP [XR chest 1V portable 83638] R outine Exams 11/01/19 10:15 Completed [place] upper GI gastr ografin 89092 Rout ine Exams 10/27/19 08:00 Completed FL upper GI gastr ografin 08229 Rout ine Exams 11/02/19 06:36 [place] [id number] Routin e Ultrasound 10/28/19 Completed Labs from last 24 hours 11/06/19 11/06/19 04:49 04:49 WBC 3.7 L RBC 3.05 L Hgb 9.3 L Hct 29.3 L MCV 96.1 H MCH 30.5 MCHC 31.7 RDW 16.1 H Plt Count 246 MPV 9.4 Neut % (Auto) 64.3 Lymph % (Auto) 21.9 Lucas % (Auto) 10.1 Eos % (Auto) 2.7 Baso % (Auto) 0.5 Neut # (Auto) 2.4 Lymph # (Auto) 0.8 Lucas # (Auto) 0.4 Eos # (Auto) 0.1 Baso # (Auto) 0.0 Nucleated RBC % (a uto) 0 Nucleated RBCs # 0.0 Sodium 136 Potassium 3.9 Chloride 102 Carbon Dioxide 25 Anion Gap 12.9 BUN 7 L Creatinine 1.1 GFR Calculation 67.0 L Glucose 101 Calcium 8.8 Total Bilirubin 0.4 AST 11 ALT 8 Alkaline Phosphata se 58 Total Protein 5.7 L Albumin 3.1 L Globulin 2.6 Addt'l Data from Hospital Stay: [facility] [address], [place] [address] DR. NATY NAVA, CLINIQUE COUNTER MANAGER NAME: Waylon Worthy LOC: ICU U #: [id number] AGE/SX: 64/M ROOM: ICU07 RE10/22/[address]: Isaias Michael MD : 1955 BED: 1 DIS: FAX #: STATUS: ADM IN TLOC: Spec #: [id number] [place]: 11/03/19 Status: COMP Req #: [id number] Recd: 11/03/[address]: Perry Carroll MD Src: Stool SpDesc: Ordered: C.DIFF PCR Procedure Result Verified Site C. DIFF BY PCR Final 11/04/19 No C. difficile toxin B gene DNA detected NOTICE OF CONFIDENTIALITY The recipient of this confidential patient information is prohibited from disclosing the information to any other green party and is required to destroy the information after the stated need has been fulfilled. Anyone receiving this data in error should notify the [facility] immediately by telephone: . Thank you for your cooperation. END OF REPORT [facility] [address] [place] [address] [id number] [address] NATY NAVA, CLINIQUE COUNTER MANAGER NAME: Waylon Worthy LOC: ICU U #: [id number] AGE/SX: 64/M ROOM: ICU07 RE10/22/[address]: Isaias Michael MD : 1955 BED: 1 DIS: FAX #: STATUS: ADM IN TLOC: Spec #: [id number] [place]: 11/01/19 Status: COMP Req #: [id number] Recd: 11/01/[address]: Perry Carroll MD Src: Abdomen SpDesc: Ordered: Tissue Cult GS Comments: Comment ABDOMEN >2 HOURS DELAY OF SETUP FROM COLLECTION TIME. RESULTS MAY BE AFFECTED. Procedure Result Verified Site Gram Stain Final 11/02/19 Result FEW BUDDING YEAST RARE GRAM POSITIVE COCCI IN PAIRS MODERATE WHITE BLOOD CELLS Tissue Culture Final 11/05/19 Organism 1 Enterococcus faecium vre Growth FEW Organism 2 Klebsiella pneumoniae Growth RARE DAY 3 PREVIOUSLY CALLED CRITICAL. Enterococc Kleb pneum M.I.C. RX M.I.C. RX --------- ------ --------- ------ * Amikacin <=16 S * Ampicillin >8 R 16 R * Ampicillin/Sulbactam <=8/4 S * Aztreonam <=8 S * Cefepime <=8 S * Ceftriaxone <=8 S * Cefuroxime <=4 S * Ciprofloxacin >2 R <=1 S * Erythromycin >4 R * Gentamicin <=4 S * Imipenem <=1 S * Levofloxacin >4 R <=2 S * Linezolid 2 S * Meropenem <=1 S * Penicillin >8 R * Rifampin >2 R * Tetracycline 8 I <=4 S * Trimethoprim/Sulfamethoxazole <=2/38 S Vancomycin >16 R * Piperacillin/Tazobactam <=16 S Gentamicin Synergy Screen <=500 S Daptomycin 4 S Enterococcus faecium vre: Gram Pos Combo 33-MScan Gentamicin Synergy Screen S Tissue Culture Preliminary (changed) 11/04/19 Organism 1 Enterococcus species Growth FEW Organism 2 Klebsiella pneumoniae Growth RARE DAY 2 RESULTS TO FOLLOW Kleb pneum M.I.C. RX --------- ------ * Amikacin <=16 S * Ampicillin 16 R * Ampicillin/Sulbactam <=8/4 S * Aztreonam <=8 S * Cefepime <=8 S * Ceftriaxone <=8 S * Cefuroxime <=4 S * Ciprofloxacin <=1 S * Gentamicin <=4 S * Imipenem <=1 S * Levofloxacin <=2 S * Meropenem <=1 S * Tetracycline <=4 S * Trimethoprim/Sulfamethoxazole <=2/38 S * Piperacillin/Tazobactam <=16 S Tissue Culture Preliminary (changed) 11/03/19-1044 Organism 1 Strep species, gamma-hemolytic Growth FEW Organism 2 Gram Negative Rods Growth RARE DAY 1 RESULTS TO FOLLOW NOTICE OF CONFIDENTIALITY The recipient of this confidential patient information is prohibited from disclosing the information to any other green party and is required to destroy the information after the stated need has been fulfilled. Anyone receiving this data in error should notify the [facility] immediately by telephone: . Thank you for your cooperation. END OF REPORT Vitals: Last Vital Signs Temp 98.3 F 11/06/19 08:00 Pulse 88 11/06/19 10:00 Resp 20 H 11/06/19 10:00 BP 121/91 11/06/19 10:00 Pulse Ox 98 11/06/19 10:00 TS Medications Medications Home Medications cholecalciferol (vitamin D3) [Vitamin D3] 1,000 unit PO DAILY 10/25/19 [History Confirmed 10/25/19] doxycycline hyclate 100 mg PO BID 10/25/19 [History Confirmed 10/25/19] hydrocodone-acetaminophen 1 tab PO Q6H 10/25/19 [History Confirmed 10/25/19] lisinopril 20 mg PO BID 10/25/19 [History Confirmed 10/25/19] metoprolol succinate 50 mg PO DAILY 10/25/19 [History Confirmed 10/25/19] prednisone 60 mg PO DAILY 10/25/19 [History Confirmed 10/25/19] Active Medications Albuterol Sulfate (Albuterol) 2.5 mg INHALATION Q4H.RESPIRATORY LINDA Last Admin: 11/06/19 08:36 Dose: 2.5 mg Documented by: Albuterol/Ipratropium (Duoneb) 3 ml INHALATION TID.RESPIRATORY LINDA Denture Adhesive (Fixodent) 1 applic DENTAL PRN PRN PRN Reason: denture adhesive Last Admin: 10/26/19 17:30 Dose: 1 cream Documented by: Heparin Sodium (Beef Lung) (Heparin) 5,000 unit SUBCUT Q12H [facility] Last Admin: 11/06/19 06:13 Dose: 5,000 unit Documented by: Hydralazine HCl (Apresoline) 5 mg IVP Q6H PRN PRN Reason: SBP >160 Last Admin: 10/31/19 22:32 Dose: 5 mg Documented by: Piperacillin Sod/Tazobactam (Sod 3.375 gm/ Sodium Chloride) 50 mls @ 12.5 mls/hr IV Q8H [facility] Last Infusion: 11/06/19 10:14 Dose: Infused Documented by: Sodium Chloride (Sodium Chloride 0.9%) 1,000 mls @ 30 mls/hr IV .Q24H [facility] Last Admin: 11/05/19 07:38 Dose: 30 mls/hr Documented by: Linezolid (Zyvox Premix) 600 mg in 300 mls @ 300 mls/hr IV Q12H [facility] Last Infusion: 11/05/19 12:08 Dose: Infused Documented by: Lanolin (Lanolin Oint) 1 applic TOPICAL PRN PRN PRN Reason: DRY LIPS Last Admin: 10/29/19 18:08 Dose: 1 tube Documented by: Lisinopril (Prinivil) 10 mg PO DAILY [facility] Last Admin: 11/06/19 09:22 Dose: 10 mg Documented by: Loperamide HCl (Imodium Liquid) 2 mg PO QID PRN PRN Reason: DIARRHEA Metoprolol Succinate (Toprol Xl) 75 mg PO DAILY [facility] Last Admin: 11/06/19 09:22 Dose: 75 mg Documented by: Metoprolol Tartrate (Metoprolol Tartrate) 5 mg IV Q4H PRN PRN Reason: HR> 120, hold for SBP <100 Ondansetron HCl (Zofran) 4 mg IVP Q6H PRN PRN Reason: NAUSEA AND VOMITING Last Admin: 11/01/19 08:53 Dose: 4 mg Documented by: Oxycodone HCl (Oxycodone Ir) 10 mg PO Q6H PRN PRN Reason: SEVERE PAIN Last Admin: 11/06/19 06:13 Dose: 10 mg Documented by: Pantoprazole Sodium (Protonix) 40 mg PO BID [facility] Sucralfate (Carafate Oral Liq) 1 gm PO Q8H LINDA Last Admin: 11/06/19 09:26 Dose: 1 gm Documented by: Discharge Plan Discharge Patient Disposition: Xfer Other Condition: Stable Prescriptions: No Action doxycycline hyclate 100 mg capsule 100 mg PO BID RF: 0 hydrocodone-acetaminophen 5-325 mg tablet 1 tab PO Q6H RF: 0 prednisone 20 mg tablet 60 mg PO DAILY RF: 0 Vitamin D3 1,000 unit Capsule 1,000 unit PO DAILY RF: 0 metoprolol succinate 50 mg Capsule,Sprinkle,Er 24hr 50 mg PO DAILY RF: 0 lisinopril 20 mg PO BID RF: 0 Discharge Orders: Transfer Out of Facility (Order); Ordered 11/06/19 Ordered By: Isaias Michael Discharge Diet: Cardiac Discharge Activity: Increase activity as tolerated Transfer Attestations Time Spent in Transfer Care*: critical care time 30 - 74 mins Status at Transfer: Cognitive status at transfer: cognitively intact, Behavioral status at transfer: cooperative, Functional status at transfer: other assisted ambulation Overall status at transfer: patient is not back to baseline Coding Level of Care Code 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
--- NOTE | 2019-11-06 12:08 | PC.CHAP ---
Pastoral Care Encounter/Spiritual Assessment Type of Contact [] Declined radiology practitioner assistant visit [] Patient/Family/Request visit [] Outpatient visit [x] Follow-up visit [] Physician referral [] Code/Alert [] Routine visit [] Staff referral [] Actively dying [] Patient sleeping [] Family support [] [] Out of room [] Palliative care [] [] Receiving care in room [] Pre-surgical visit [] Trauma [] Long length of stay [x] ICU visit [x] Other: Relational/Emotional Strength [] Patient feels connected with others/family/visitors/staff [] Distress [] Loneliness/isolation [] Abandonment Spirituality of Patient [] Person of Wendy [] Attends Amish of their Wendy [] Believes in Prayer [] Reads Bible or Bahai materials [] There are Spiritual issues to be addressed Plate Mounter Interventions [] Prayer [] Active listening [] Non-anxious presence [] Spiritual/emotional support [] Crisis/trauma care [] Spiritual counseling [] Bereavement support [] Provided bereavement packet [] Provided Bible/devotional materials [] Provided toy/stuffed animal, coloring book to patient or family member [] Completed spiritual assessment [] Provided Communion [] Anointing/[place] [] Salvation [] Other: Impact on Illness or Injury [] Angry [] Fearful [] Anxious [] Often cries [] Exhaustion [] Unable to work [] Unable to attend temple [] Unable to walk/stand [] Unable to read [] Unable to drive [] Unable to eat/drink [] Unable to sleep [] Unable to be with family [] Other: Summary patient was still undre precautions, Plate Mounter will do follow up visit. Time spent with patient 5 min.
--- NOTE | 2019-11-06 13:40 | PC.NURSE ---
position change nurse instructed patient on importance of changing positions at least every two hours, and the risk of skin breakdown if this is now done. Patient verbalized understanding but has refused turning since 1000. Encouraged patient to get up and sit in chair for breakfast and lunch, patient refused.
--- NOTE | 2019-11-06 14:30 | PC.NURSE ---
Wound vac with transfer Dr. Carroll states wound vac is necessary to stay in place for transfer. Notified FABRICIO Herndon who took report to receive patient at [facility] to have a wound vac available to switch out at time of getting patient.
[2019-11-06] MEDS: hyDRALAzine 20 mg/mL INJ 1 mL 5 MG IVP (15:39)
--- NOTE | 2019-11-06 16:25 | PC.NURSE ---
tranfer report called to Yanick Thomas RN at [facility] in [place], [place]. Patient taken via ambulance.
== END 2019-11-06 16:20 | DRG 327 ==
PROVIDERS: Hospitalist; Surgery; Admitting Provider Student in an Organized Health Care Education/Training Program; Emergency Provider Emergency Medicine; Family Provider Family Medicine; PCP Family Medicine; Referring Provider Emergency Medicine; Visit Provider Student in an Organized Health Care Education/Training Program
DX: K25.5 Chronic or unspecified gastric ulcer with perforation (principal); T81.41XA Infection following a procedure, superficial incisional surgical site, initial encounter; N17.9 Acute kidney failure, unspecified; T81.32XA Disruption of internal operation (surgical) wound, not elsewhere classified, initial encounter; Z16.21 Resistance to vancomycin; I82.413 Acute embolism and thrombosis of femoral vein, bilateral; D62 Acute posthemorrhagic anemia; J44.0 Chronic obstructive pulmonary disease with (acute) lower respiratory infection; Z68.41 Body mass index [BMI] 40.0-44.9, adult; Y83.8 Other surgical procedures as the cause of abnormal reaction of the patient, or of later complication, without mention of misadventure at the time of the procedure; R00.0 Tachycardia, unspecified; I10 Essential (primary) hypertension; Z95.828 Presence of other vascular implants and grafts; Z86.718 Personal history of other venous thrombosis and embolism; J20.9 Acute bronchitis, unspecified; E87.6 Hypokalemia; B96.1 Klebsiella pneumoniae [K. pneumoniae] as the cause of diseases classified elsewhere; R11.0 Nausea; Z86.19 Personal history of other infectious and parasitic diseases; E66.01 Morbid (severe) obesity due to excess calories; Z86.73 Personal history of transient ischemic attack (TIA), and cerebral infarction without residual deficits; Z85.46 Personal history of malignant neoplasm of prostate; Z96.651 Presence of right artificial knee joint; K21.9 Gastro-esophageal reflux disease without esophagitis; I95.81 Postprocedural hypotension; K22.2 Esophageal obstruction
CPT/HCPCS: 36415; 36430; 36569; 36592; 36600; 51702; 71045; 71275; 74019; 74240; 78014; 80048; 80053; 80202; 82533; 82803; 83605; 83735; 83880; 84484; 85007; 85014; 85018; 85025; 85027; 85610; 86677; 86850; 86900; 86901; 86920; 87040; 87070; 87077; 87081; 87106; 87176; 87186; 87205; 87338; 87493; 93005; 93970; 94002; 94640; 94664; 94799; 96365; 96367; 96372; 96375; 97110; 97116; 97161; 97165; 97530; 97535; 99285; A4216; A9540; A9567; C1713; C9113; C9290; J0131; J0330; J0360; J0690; J1170; J1450; J1644; J1940; J2001; J2020; J2060; J2250; J2270; J2405; J2543; J2704; J2710; J2930; J3010; J3370; J3480; J3490; J7030; J7040; J7050; J7611; J7626; J7644; P9016; P9047; Q9963; Q9967

== ENCOUNTER 2019-12-08 22:00 | Emergency (ER) | payer OTHER, SELFPAY ==
--- NOTE | 2019-12-08 22:03 | ED_ITS ---
Entered by Rena Falcon, acting as scribe for Jacqueline Oropeza MD HPI - Abdominal Pain General: Chief Complaint: General Medical Stated Complaint: INFECTION TO SURGICAL SITE Time Seen by Provider: 12/08/19 22:07 Source: patient, family and EMS Mode of arrival: EMS History of Present Illness: HPI narrative: 64 y/o male presents to the ED for abd wound check. Pt states he had sx for bleeding ulcers at the end of September 2019. He says there has been increased drainage and redness from the site over the past few days. He has been using a Wound Vacc and his home health nurse thought it looked infected so she called EMS. Pt does not have his wound vacc with him because his home health nurse told him to leave it at home. Dr. Carroll performed his sx and pt has not had a follow up appointment because hes, waiting for an appointment . MD elicited complaint: abdominal pain Onset (ago): day(s) Severity: mild Relieving factors: nothing Associated Symptoms: Denies chills, diarrhea, dysuria, fever(s), nausea and vomiting Review of Systems Const: Denies: fever, chills, body aches or change in appetite Eyes: Denies: blurry vision or eye discomfort ENMT: Denies: throat pain or dental pain Card: Denies: chest pain Resp: Denies: shortness of breath GI: Reports: abdominal pain (surgical site tenderness); Denies: nausea, vomiting or diarrhea : Denies: painful urination Musc: Denies: neck pain or back pain Skin/Breast: Denies: rash Neuro: Denies: headache Psych: Denies: depression Eric/Lymph: Denies: easy bruising All/Imm: Denies: hives PFSH ED PFSH: Medical History (Updated 12/09/19 @ 01:30 by Jacqueline Oropeza MD) Asthma Deep vein thrombophlebitis of leg Dehiscence of closure of fascia, superficial or muscular Hepatitis C History of adenocarcinoma of prostate Hypertension Morbid obesity Osteoarthritis Perforated gastric ulcer Sinus tachycardia Surgical site infection Surgical History (Updated 10/28/19 @ 17:37 by Siddharth Reagan MD) Hx of total knee arthroplasty Social History (Updated 10/25/19 @ 20:03 by Stefania De La Rosa) Smoking and tobacco status: never smoked Alcohol intake: never Physical Exam Const: COMMON NORMALS: no apparent distress and oriented x3 HENMT: COMMON NORMALS: normocephalic and head/scalp atraumatic HEAD & SCALP: normocephalic and atraumatic Eye: COMMON NORMALS: PERRL and EOMs intact bilaterally PUPIL: Yes PERRL Neck/C-Spine: COMMON NORMALS: full ROM and supple Chest: COMMONS NORMALS: inspection of chest normal and palpation of chest normal Resp: COMMON NORMALS: normal respiratory effort, no retractions, no use of accessory muscles and clear to auscultation bilaterally AUSCULTATION: clear to auscultation bilaterally Cardio: COMMON NORMALS: regular rate, regular rhythm and no murmurs RATE: regular rate RHYTHM: regular rhythm GI: COMMON NORMALS: no masses GI image (male): 1. surgical incision noted Extremity: COMMON NORMALS: normal to inspection and full ROM Neuro: COMMON NORMALS: oriented x3, moves all extremities and no focal motor deficits Psych: COMMON NORMALS: mental status grossly normal, thought process normal and cooperative THOUGHT PROCESS: normal thought process Skin: WOUNDS: Yes surgical site Details: open Course Vital Signs: Vital signs: Vital Signs Temperature 98.5 F 12/09/19 01:41 Pulse Rate 64 12/09/19 01:41 Respiratory Rate 18 12/09/19 01:41 Blood Pressure 141/85 12/09/19 01:41 Pulse Oximetry 95 12/09/19 01:41 MDM - Abdominal Pain MDM Narrative: Medical decision making narrative: Patient presents here with abdominal wound. Wound here is well-appearing with no signs of infection. Patient has been afebrile and his white count here is normal. I did speak to Dr. Carroll and went over CT findings with him. He feels that the area is likely from the wound VAC and will follow him soon in wound care. Patient would like to go home as well and when he is to follow-up in 1 to 3 days and return if worsening. Lab Data: Labs: Lab Results 12/08/19 12/08/19 Range/Units 22:27 22:27 WBC 6.3 (4.0-10.0) 10^3/ uL RBC 4.18 (4.1-5.3) 10^6/u L Hgb 12.3 (11.7-16.6) g/dL Hct 38.4 L (42.0-52.0) % MCV 91.9 (80-94) fL MCH 29.4 (28.0-34.0) pg MCHC 32.0 (30.0-36.0) g/dL RDW 15.3 H (12.1-15.1) % Plt Count 273 (130-400) 10^3/c mm MPV 10.1 (7.4-10.4) fL Neut % (Auto) 57.1 % Lymph % (Auto) 25.7 % [place] % (Auto) 14.5 % Eos % (Auto) 1.4 % Baso % (Auto) 0.8 % Neut # (Auto) 3.6 (1.8-7.7) 10^3/u L Lymph # (Auto) 1.6 (0.8-4.8) 10^3/u L [place] # (Auto) 0.9 (0.2-0.9) 10^3/u L Eos # (Auto) 0.1 (0.0-0.8) 10^3/u L Baso # (Auto) 0.1 (0.0-0.1) 10^3/u L Nucleated RBC % (a uto) 0 % Nucleated RBCs # 0.0 /100WBC Sodium 133 L (136-145) mmol/L Potassium 3.5 (3.5-5.1) mmol/L Chloride 92 L (98-107) mmol/L Carbon Dioxide 24 (22-29) mmol/L Anion Gap 20.5 H (5-19) BUN 13 (8-23) mg/dL Creatinine 1.3 H (0.7-1.2) mg/dL GFR Calculation 55.2 L (90-130) mL/min Glucose 126 H (65-115) mg/dL Calcium 9.5 (8.5-10.5) mg/dL Total Bilirubin 0.5 (0.15-1.2) mg/dL AST 29 (0-40) U/L ALT 16 (0-41) U/L Alkaline Phosphata se 80 (40-130) IU/L Total Protein 7.6 (6.6-8.7) g/dL Albumin 3.0 L (3.5-5.2) g/dL Globulin 4.6 (1.3-4.6) g/dL Imaging Data ^: CT Abd/Pel: Radiologist's impression: Ordering Provider/Ordering MD: Jacqueline Oropeza MD Date of Service: 12/08/19 Procedure(s): CT abdomen pelvis w con* [id number] Accession Number(s): [id number] Report Number: [id number]/CT abdomen pelvis w con* [id number] THIS REPORT CONTAINS FINDINGS THAT MAY BE CRITICAL TO PATIENT CARE. The findings were communicated via written report. Receipt and understanding of the findings was acknowledged by jacqueline Oropeza at 1:38 AM HOSE TESTER on 12/09/2019. Radiation Dose CTDIVOL = (mGy): DLP = 1466.36 (mGy-cm) Addendum Dictated By: Jason Hicks MD Addendum Signed By: Jason Hicks MD Signed Date/Time: 0141 Addendum Cosigned By: PROCEDURE INFORMATION: Exam: CT Abdomen And Pelvis With Contrast Exam date and time: 12/08/2019 11:13 PM Age: 64 years old Clinical indication: Abdominal pain; Acute; Prior surgery; Surgery date: 1-6 months; Surgery type: Bleeding ulcer SX, ; patient HX: PT had wound vac in place; Additional info: Abd pain TECHNIQUE: Imaging protocol: Computed tomography of the abdomen and pelvis with intravenous contrast. Total DLP: 1466.36 mGy-cm Radiation optimization: All CT scans at this facility use at least one of these dose optimization techniques: automated exposure control; mA and/or kV adjustment per patient size (includes targeted exams where dose is matched to clinical indication); or iterative reconstruction. Contrast material: VISI; Contrast volume: 95 ml; Contrast route: 20G; COMPARISON: CT abdomen pelvis w con* [id number] 03/30/2018 10:28 AM FINDINGS: Lungs: There is a calcified granuloma in the right lower lobe. Mediastinum: There is a small sliding-type hiatal hernia. Liver: The liver is normal. Gallbladder and bile ducts: The gallbladder is absent. There is ectasia of the common bile duct and central intrahepatic ducts. Pancreas: There is mild atrophy of the pancreas. Spleen: The spleen is unremarkable. Adrenals: The adrenal glands are unremarkable. Kidneys and ureters: Nonobstructive right renal stones are present. There is no hydronephrosis or ureteral dilation. The left kidney and ureter are unremarkable. Stomach and bowel: Stomach is unremarkable with the exception of a hiatal hernia. The small bowel is nondilated. There is no sign of inflammation. There is mild distal descending and sigmoid colonic diverticulosis without evidence of diverticulitis. Appendix: The appendix is normal. Intraperitoneal space: Trace free air in the upper abdomen, possibly intraperitoneal. 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 Chronic calcified thrombus is also seen in the common and external iliac veins. There is mild aortic atherosclerotic disease. There is no aortic dissection or aneurysm. The portal, splenic and superior mesenteric veins are patent. There are multiple dilated collateral veins over the abdominal wall suggesting central venous occlusion at the thoracic inlet. Lymph nodes: There is no lymphadenopathy in the retroperitoneum, mesentery, pelvis or inguinal regions. Bladder: The urinary bladder is unremarkable. Reproductive: The prostate and seminal vesicles are unremarkable. Bones/joints: There is moderate degenerative disease in the lumbar spine. The pelvis and hips are unremarkable. Soft tissues: There is moderate fat stranding deep to the right paramidline upper abdominal wall extending to the gastric antrum. There is trace gas within the region of fat stranding adjacent to the abdominal wall (extraperitoneal) and adjacent to the gastric antrum (possibly intraperitoneal). There is a wound VAC overlying a defect in the superficial aspect of the ventral abdominal wall. There is a large fat containing umbilical hernia. There is a mixed fat and soft tissue attenuation mass in the right lower quadrant deep to the abdominal wall measuring 5.2 x 3.9 cm on axial series 2, image 45, consistent with fat necrosis. CT/CT abdomen pelvis w con* [id number] IMPRESSION: 1. Fat stranding and gas within and deep to the right upper quadrant abdominal wall may be due to surgery, gas-forming infection or less likely bowel perforation. Correlate with surgical timing. 2. Intact ventral hernia repair with wound VAC in place. Stable large fat containing umbilical hernia. 3. Probable intra-abdominal fat necrosis in the upper right paramidline and right lower quadrant of the abdomen. 4. Incidental findings above. Discharge Plan Discharge Patient Disposition: Home, Self-Care Clinical Impression: Chronic abdominal wound infection Qualifiers: Encounter type: initial encounter Qualified Code(s): S31.109A - Unspecified open wound of abdominal wall, unspecified quadrant without penetration into peritoneal cavity, initial encounter Condition: Stable Prescriptions: No Action hydrocodone-acetaminophen 5-325 mg tablet 1 tab PO Q6H RF: 0 metoprolol succinate 50 mg Capsule,Sprinkle,Er 24hr 50 mg PO DAILY RF: 0 lisinopril bottle 20 mg PO BID RF: 0 oxycodone 5 mg Tablet 5 mg PO Q4H PRN (Reason: Pain) RF: 0 sucralfate 1 gram Tablet 1 g PO BID RF: 0 Discharge Orders: Discharge Order (Routine); Ordered 12/09/19 Ordered By: Jacqueline Oropeza Referrals: Sravan Garcia [Primary Care Provider] - [facility], [Staff Physician] - Discharge Diet: Advance as tolerated Discharge Activity: Resume usual activity Patient Instructions: Wound Dehiscence (ED), Wound Care (General) Discharge Date/Time: 12/09/19 01:43 Coding Level of Care Code ED Machine Cutter for Chg Fwd Exam Problem Focused The documentation recorded by the Ezekiel simpson Ashley, accurately reflects the service I personally performed and the decisions made by Johnna monreal Korby, MD Dec 08, 2019 22:00
--- NOTE | 2019-12-08 22:07 | CTR_ITS ---
PROCEDURE INFORMATION: Exam: CT Abdomen And Pelvis With Contrast Exam date and time: 12/08/2019 11:13 PM Age: 64 years old Clinical indication: Abdominal pain; Acute; Prior surgery; Surgery date: 1-6 months; Surgery type: Bleeding ulcer SX, ; patient HX: PT had wound vac in place; Additional info: Abd pain TECHNIQUE: Imaging protocol: Computed tomography of the abdomen and pelvis with intravenous contrast. Total DLP: 1466.36 mGy-cm Radiation optimization: All CT scans at this facility use at least one of these dose optimization techniques: automated exposure control; mA and/or kV adjustment per patient size (includes targeted exams where dose is matched to clinical indication); or iterative reconstruction. Contrast material: VISI; Contrast volume: 95 ml; Contrast route: 20G; COMPARISON: CT abdomen pelvis w con* [id number] 03/30/2018 10:28 AM FINDINGS: Lungs: There is a calcified granuloma in the right lower lobe. Mediastinum: There is a small sliding-type hiatal hernia. Liver: The liver is normal. Gallbladder and bile ducts: The gallbladder is absent. There is ectasia of the common bile duct and central intrahepatic ducts. Pancreas: There is mild atrophy of the pancreas. Spleen: The spleen is unremarkable. Adrenals: The adrenal glands are unremarkable. Kidneys and ureters: Nonobstructive right renal stones are present. There is no hydronephrosis or ureteral dilation. The left kidney and ureter are unremarkable. Stomach and bowel: Stomach is unremarkable with the exception of a hiatal hernia. The small bowel is nondilated. There is no sign of inflammation. There is mild distal descending and sigmoid colonic diverticulosis without evidence of diverticulitis. Appendix: The appendix is normal. Intraperitoneal space: Trace free air in the upper abdomen, possibly intraperitoneal. 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 Chronic calcified thrombus is also seen in the common and external iliac veins. There is mild aortic atherosclerotic disease. There is no aortic dissection or aneurysm. The portal, splenic and superior mesenteric veins are patent. There are multiple dilated collateral veins over the abdominal wall suggesting central venous occlusion at the thoracic inlet. Lymph nodes: There is no lymphadenopathy in the retroperitoneum, mesentery, pelvis or inguinal regions. Bladder: The urinary bladder is unremarkable. Reproductive: The prostate and seminal vesicles are unremarkable. Bones/joints: There is moderate degenerative disease in the lumbar spine. The pelvis and hips are unremarkable. Soft tissues: There is moderate fat stranding deep to the right paramidline upper abdominal wall extending to the gastric antrum. There is trace gas within the region of fat stranding adjacent to the abdominal wall (extraperitoneal) and adjacent to the gastric antrum (possibly intraperitoneal). There is a wound VAC overlying a defect in the superficial aspect of the ventral abdominal wall. There is a large fat containing umbilical hernia. There is a mixed fat and soft tissue attenuation mass in the right lower quadrant deep to the abdominal wall measuring 5.2 x 3.9 cm on axial series 2, image 45, consistent with fat necrosis. CT/CT abdomen pelvis w con* [id number] IMPRESSION: 1. Fat stranding and gas within and deep to the right upper quadrant abdominal wall may be due to surgery, gas-forming infection or less likely bowel perforation. Correlate with surgical timing. 2. Intact ventral hernia repair with wound VAC in place. Stable large fat containing umbilical hernia. 3. Probable intra-abdominal fat necrosis in the upper right paramidline and right lower quadrant of the abdomen. 4. Incidental findings above. Radiation Dose CTDIVOL = (mGy): DLP = 1466.36 (mGy-cm)
--- NOTE | 2019-12-08 22:10 | PC.NURSE ---
patient states he had abdominal surgery in september for a ruptured ulcer. Patient states his incision started having drainage after a substitute home care worker came out to change his wound vac about a week ago. Patient states the wound drainage has been coming out around the wound vac and has a foul odor to it.
[2019-12-08 22:13] VITALS: BP 174/89; PULSE 101; RESP 16; TEMP 36.7; O2SAT 96; BMI 33.3
[2019-12-08] MEDS: sodium chloride 0.9% 1,000 ML 999 ML IV (22:25)
[2019-12-08] MEDS: ondansetron 2 mg/ML SDV 2 mL 4 MG IVP (22:26)
[2019-12-08 22:27] VITALS: RESP 16; O2SAT 96
[2019-12-08] MEDS: morphine 4 mg/mL SDV 1 mL IVP (22:27)
[2019-12-08 22:39] LABS: Basophils # 0.1 10^3/uL (0.0-0.1); Basophils % 0.8 %; Eosinophils # 0.1 10^3/uL (0.0-0.8); Eosinophils % 1.4 %; Hematocrit 38.4 % (42.0-52.0); Hemoglobin 12.3 g/dL (11.7-16.6); Lymphocytes # 1.6 10^3/uL (0.8-4.8); Lymphocytes % 25.7 %; Mean Corpuscular Hemoglobin 29.4 pg (28.0-34.0); Mean Corpuscular Volume 91.9 fL (80-94); Mean Platelet Volume 10.1 fL (7.4-10.4); Monocytes # 0.9 10^3/uL (0.2-0.9); Monocytes % 14.5 %; Neutrophils # 3.6 10^3/uL (1.8-7.7); Neutrophils % 57.1 %; Nucleated Red Blood Cells % 0 %; Platelet Count 273 10^3/cmm (130-400); Red Blood Count 4.18 10^6/uL (4.1-5.3); Red Cell Distribution Width 15.3 % (12.1-15.1); White Blood Count 6.3 10^3/uL (4.0-10.0)
[2019-12-08 23:09] VITALS: BP 149/101; PULSE 58; RESP 17; O2SAT 94
[2019-12-08 23:10] LABS: Alanine Aminotransferase 16 U/L (0-41); Alkaline Phosphatase 80 IU/L (40-130); Anion Gap 20.5 (5-19); Aspartate Amino Transferase 29 U/L (0-40); Blood Urea Nitrogen 13 mg/dL (8-23); Calcium 9.5 mg/dL (8.5-10.5); Carbon Dioxide 24 mmol/L (22-29); Chloride 92 mmol/L (98-107); Globulin 4.6 g/dL (1.3-4.6); Glomerular Filtration Rate 55.2 mL/min (90-130); Glucose 126 mg/dL (65-115); Potassium 3.5 mmol/L (3.5-5.1); Sodium 133 mmol/L (136-145); Total Bilirubin 0.5 mg/dL (0.15-1.2); Total Protein 7.6 g/dL (6.6-8.7)
[2019-12-08 23:41] VITALS: RESP 17; O2SAT 97
[2019-12-08] MEDS: HYDROmorphone 1 mg/mL INJ 1 mL IVP (23:41)
[2019-12-08 23:42] VITALS: BP 172/116; PULSE 62; RESP 17; O2SAT 96
[2019-12-08 23:44] VITALS: PULSE 58
--- NOTE | 2019-12-08 23:57 | PC.NURSE ---
patient to CT
[2019-12-09] MEDS: iodixanol 320 mg/mL 100mL Btl IV (00:21)
--- NOTE | 2019-12-09 01:10 | PC.NURSE ---
Patient and visitor at his bedside rang the call light and seemed agitated over not seeing the doctor and wanting an update on results. I informed the doctor and the charge nurse and told the patient that the doctor will be in to speak with them and that the results are still pending.
[2019-12-09 01:18] VITALS: BP 126/83; PULSE 62; RESP 17; O2SAT 94
[2019-12-09 01:41] VITALS: BP 141/85; PULSE 64; RESP 18; TEMP 36.9; O2SAT 95
--- NOTE | 2019-12-09 13:48 | DCPLANNER ---
manager rfid had message to schedule a follow up appointment for patient with Wound Care. manager rfid called [facility]ound Care, spoke with Aditi, a follow up appointment is scheduled for Monday December 16, 2019 at 10:[address] Carroll. manager rfid called [facility], and told her that patient was seen in the ER and appointment information. manager rfid called patient and informed patient of the scheduled appointment.
--- NOTE | 2019-12-20 10:36 | DCPLANNER ---
Patient did attend appointment scheduled for 12.16.19 with Wound Care.
== END 2019-12-09 01:43 | disposition home or self-care (01) ==
PROVIDERS: Emergency Provider Emergency Medicine; Family Provider Family Medicine; PCP Family Medicine
DX: S31.109A Unspecified open wound of abdominal wall, unspecified quadrant without penetration into peritoneal cavity, initial encounter (principal); L08.9 Local infection of the skin and subcutaneous tissue, unspecified; X58.XXXA Exposure to other specified factors, initial encounter; I10 Essential (primary) hypertension; E66.01 Morbid (severe) obesity due to excess calories; Z68.33 Body mass index [BMI] 33.0-33.9, adult
CPT/HCPCS: 36415; 74177; 80053; 85025; 96360; 96361; 96374; 96375; 99283; J1170; J2270; J2405; J7030; Q9967

== ENCOUNTER 2019-12-23 10:41 | Outpatient (RCR) | payer OTHER, MEDICARE, SELFPAY | END 2019-12-24 23:59 | disposition home or self-care (01) | LOC: WOUND 10:41 | PROVIDERS: Family Provider Family Medicine; PCP Family Medicine; Visit Provider Surgery | DX: T81.31XA Disruption of external operation (surgical) wound, not elsewhere classified, initial encounter (principal); Y83.8 Other surgical procedures as the cause of abnormal reaction of the patient, or of later complication, without mention of misadventure at the time of the procedure | CPT/HCPCS: 11042; 11045; 97597; 97598; 99203; G0463 ==

== ENCOUNTER 2020-01-20 14:05 | Outpatient (RCR) | payer OTHER, MEDICARE, SELFPAY | END 2020-01-24 23:59 | disposition home or self-care (01) | LOC: WOUND 14:05 | PROVIDERS: Family Provider Family Medicine; PCP Family Medicine; Visit Provider Surgery | DX: T81.31XA Disruption of external operation (surgical) wound, not elsewhere classified, initial encounter (principal); Y83.8 Other surgical procedures as the cause of abnormal reaction of the patient, or of later complication, without mention of misadventure at the time of the procedure | CPT/HCPCS: 11042; 11045 ==

== ENCOUNTER 2020-02-17 10:42 | Outpatient (RCR) | payer OTHER, MEDICARE, SELFPAY | END 2020-02-23 23:59 | disposition home or self-care (01) | LOC: WOUND 10:42 | PROVIDERS: Family Provider Family Medicine; PCP Family Medicine; Visit Provider Surgery | DX: T81.31XA Disruption of external operation (surgical) wound, not elsewhere classified, initial encounter (principal); Y83.8 Other surgical procedures as the cause of abnormal reaction of the patient, or of later complication, without mention of misadventure at the time of the procedure | CPT/HCPCS: 11042; 11045; 97597 ==

== ENCOUNTER 2020-02-24 10:33 | Outpatient (CLI) | payer OTHER, MEDICARE, SELFPAY | END 2020-02-24 10:34 | disposition home or self-care (01) | LOC: WOUND 02-27 13:31 | PROVIDERS: Family Provider Family Medicine; PCP Family Medicine; Visit Provider Surgery | DX: T81.31XA Disruption of external operation (surgical) wound, not elsewhere classified, initial encounter (principal); Y83.8 Other surgical procedures as the cause of abnormal reaction of the patient, or of later complication, without mention of misadventure at the time of the procedure | CPT/HCPCS: 97597 ==

== ENCOUNTER 2020-03-02 10:45 | Outpatient (CLI) | payer OTHER, SELFPAY | END 2020-03-02 10:46 | disposition home or self-care (01) | LOC: WOUND 10:46 | PROVIDERS: Family Provider Family Medicine; PCP Family Medicine; Visit Provider Surgery | DX: T81.31XA Disruption of external operation (surgical) wound, not elsewhere classified, initial encounter (principal); X58.XXXA Exposure to other specified factors, initial encounter | CPT/HCPCS: 11042; 11045 ==

== ENCOUNTER 2020-03-09 13:20 | Outpatient (CLI) | payer OTHER, SELFPAY | END 2020-03-09 13:21 | disposition home or self-care (01) | LOC: WOUND 13:21 | PROVIDERS: Family Provider Family Medicine; PCP Family Medicine; Visit Provider Surgery | DX: T81.31XA Disruption of external operation (surgical) wound, not elsewhere classified, initial encounter (principal); Y83.8 Other surgical procedures as the cause of abnormal reaction of the patient, or of later complication, without mention of misadventure at the time of the procedure | CPT/HCPCS: 11042 ==

== ENCOUNTER 2020-03-16 13:35 | Outpatient (CLI) | payer OTHER, MEDICARE, SELFPAY | END 2020-03-16 13:36 | disposition home or self-care (01) | PROVIDERS: Family Provider Family Medicine; PCP Family Medicine; Visit Provider Surgery | DX: T81.31XA Disruption of external operation (surgical) wound, not elsewhere classified, initial encounter (principal); Y83.8 Other surgical procedures as the cause of abnormal reaction of the patient, or of later complication, without mention of misadventure at the time of the procedure | CPT/HCPCS: 11042; 11045 ==

== ENCOUNTER 2020-03-23 13:32 | Outpatient (CLI) | payer OTHER, MEDICARE, SELFPAY | END 2020-03-23 13:33 | disposition home or self-care (01) | LOC: WOUND 13:33 | PROVIDERS: Family Provider Family Medicine; PCP Family Medicine; Visit Provider Surgery | DX: T81.31XA Disruption of external operation (surgical) wound, not elsewhere classified, initial encounter (principal); Y83.8 Other surgical procedures as the cause of abnormal reaction of the patient, or of later complication, without mention of misadventure at the time of the procedure | CPT/HCPCS: 97597 ==

== ENCOUNTER 2020-03-30 13:07 | Outpatient (CLI) | payer OTHER, SELFPAY | END 2020-03-30 13:08 | disposition home or self-care (01) | LOC: WOUND 13:08 | PROVIDERS: Family Provider Family Medicine; PCP Family Medicine; Visit Provider Surgery | DX: T81.31XA Disruption of external operation (surgical) wound, not elsewhere classified, initial encounter (principal); Y83.8 Other surgical procedures as the cause of abnormal reaction of the patient, or of later complication, without mention of misadventure at the time of the procedure | CPT/HCPCS: 97597 ==

== ENCOUNTER 2020-04-06 13:42 | Outpatient (CLI) | payer OTHER, MEDICARE, SELFPAY | END 2020-04-06 13:43 | disposition home or self-care (01) | LOC: WOUND 13:48 | PROVIDERS: Family Provider Family Medicine; PCP Family Medicine; Visit Provider Surgery | DX: Z09 Encounter for follow-up examination after completed treatment for conditions other than malignant neoplasm (principal) | CPT/HCPCS: 99212 ==

== ENCOUNTER 2021-01-30 06:48 | Outpatient (CLI) | payer OTHER, SELFPAY ==
--- NOTE | 2021-01-30 07:15 | MR_ITS ---
WS: [id number] MRI RIGHT SHOULDER NONCONTRAST TECHNIQUE: Sagittal T2, coronal T1, T2 and proton density imaging. Axial gradient PDE imaging. CLINICAL INFORMATION: M25.511 - Pain in right shoulder COMPARISON: MRI 11 019 FINDINGS: Prior postoperative changes rotator cuff. Susceptibility artifact from rotator cuff anchors degrades images. Postoperative changes involving the AC joint. Subacromial space is preserved. Tiny amount of subacromial subdeltoid fluid. Supraspinatus appears intact. Normal infraspinatus. Normal teres minor. Normal subscapularis. Somewha t atrophic biceps tendon in the bicipital groove unchanged from previous. Intra-articular biceps tend on appears intact. Glenoid labrum appears grossly normal. MR/MR shoulder RT wo con* [id number] IMPRESSION: 1. Prior postoperative changes rotator cuff repair with rotator cuff anchors. Rotator cuff appears intact. 2. Postoperative changes AC joint with preservation of the subacromial space 3. Somewhat atrophic but intact biceps tendon in the bicipital groove. This is unchanged from previous. 4. Glenoid labrum appears grossly normal. 5. Overall no significant changes since 2019.
== END 2021-01-30 06:49 | disposition home or self-care (01) ==
LOC: RADSHAW 06:49
PROVIDERS: PCP Family Medicine; Visit Provider Orthopaedic Surgery
DX: M25.511 Pain in right shoulder (principal)
CPT/HCPCS: 73221